=== PATIENT | female | born 1950 | race Caucasian/White ===

== ENCOUNTER 2019-07-02 20:03 | Inpatient (IN) | payer MEDICARE, MEDICAID, SELFPAY ==
[2019-07-02] VITALS (7 sets, daily range): BP systolic 131–170; BP diastolic 65–113; PULSE 80–87; RESP 18–20; TEMP 36.7–38.3; O2SAT 94–100; BMI 38.1
--- NOTE | ~2019-07-02 | XR_ITS ---
EXAMINATION: XR abdomen obstructive series DATE: 07/06/2019 09:17 INDICATION: Abdominal pain. TECHNIQUE: Upright and supine views of the abdomen were obtained. COMPARISON: CT abdomen and pelvis 05/17/2016 FINDINGS: The rectum is distended by stool. There is a paucity of stool in the rest of the colon. The re are no dilated loops of small bowel. Surgical clips in the right upper quadrant are likely from ch olecystectomy. No free intraperitoneal gas. IMPRESSION: 1. Rectum distended by stool. Reviewed, dictated and finalized at location A.
--- NOTE | ~2019-07-02 | XR_ITS ---
EXAMINATION: XR chest 1V portable EXAM DATE: 07/02/2019 20:31 INDICATION: Shortness of breath. TECHNIQUE: Portable AP frontal chest x-ray was obtained. Comparison is made to prior examination from 03/10/19. FINDINGS: The lungs are clear. There are no pleural effusions. Cardiac silhouette is prominent but magnified on this AP technique. There is no pneumothorax suspected. There are bony degenerative ch anges. There are cholecystectomy clips. IMPRESSION: No acute cardiopulmonary findings. Reviewed, dictated and finalized at location A.
--- NOTE | 2019-07-02 20:14 | ECG_ITS ---
Measurements Intervals [place] Rate: 88 P: PA: 0 QRS: -28 QRSD: 89 T: 3 QT: 369 QTc: 447 Interpretive Statements SINUS RHYTHM BORDERLINE R WAVE PROGRESSION, ANTERIOR LEADS INFERIOR INFARCT, AGE INDETERMINATE BORDERLINE T WAVE ABNORMALITY- ANTERIOR LEADS BASELINE ARTIFACT- I, II, III, AVR, AVL, AVF, V1-V2, V4 ABNORMAL ECG Electronically Signed On 07-03-2019 7:05:19 CDT by Juwan Marie D.O.
--- NOTE | 2019-07-02 20:19 | ED.SOB ---
HPI - SOB/Dyspnea General Chief Complaint: Shortness of Breath/Dyspnea Stated Complaint: sob History of Present Illness HPI Narrative: BIBEMS from [facility] for SOB. The initial transfer call said that she has known positive test for COVID-19. In discussing this with the family they state that they were told that she was negative. The alf was not able to provide any documentation confirm her status. Per EMS she was hypoxic in route and they were assisting her with BVM. On arrival she was placed on NRB at 15 and maintaining O2 saturation. She has reportedly not had anything to eat in 3 days. She was febrile in triage. She is not able to provide any additional history. She has an advanced directive showing DNR and comfort measures only. Related Data Home Medications Medication Instructions Recorded Confirmed Vraylar 1.5 mg PO DAILY 03/10/19 07/02/19 acetaminophen 650 mg PO Q6-8H PRN 03/10/19 07/02/19 amlodipine 5 mg PO DAILY 03/10/19 07/02/19 benzonatate 100 - 200 mg PO TID PRN 03/10/19 07/02/19 bisacodyl 10 mg [place] DAILY PRN 03/10/19 07/02/19 carbidopa-levodopa 2 tablet PO QID 03/10/19 07/02/19 docusate sodium [Colace] 100 mg PO BID 03/10/19 07/02/19 duloxetine 60 mg PO DAILY 03/10/19 07/02/19 gabapentin 100 mg PO TID 03/10/19 07/02/19 hydroxyzine HCl 25 mg PO DAILY 03/10/19 07/02/19 lactulose 20 g PO DAILY PRN 03/10/19 07/02/19 lamotrigine 100 mg PO BID 03/10/19 07/02/19 levothyroxine 75 mcg PO DAILY 03/10/19 07/02/19 melatonin 10 mg PO HS 03/10/19 07/02/19 nystatin [Nyamyc] 1 applic TOPICAL Q8-12H PRN 03/10/19 07/02/19 ondansetron HCl [Zofran] 4 mg PO Q8H PRN 03/10/19 07/02/19 polysaccharide iron complex 150 mg PO BID 03/10/19 07/02/19 [Poly-Iron] potassium chloride 20 meq PO DAILY 03/10/19 07/02/19 quetiapine 400 mg PO DAILY 03/10/19 07/02/19 rivastigmine tartrate 3 mg PO BID 03/10/19 07/02/19 sennosides-docusate sodium 2 tab-cap PO HS 03/10/19 07/02/19 sodium chloride [Saline Nasal] 2 spray INTRANASAL QID PRN 03/10/19 07/02/19 tizanidine [Zanaflex] 2 mg PO Q8H PRN 03/10/19 07/02/19 Allergies Allergy/AdvReac Type Severity Reaction Status Date / Time morphine Allergy Intermediate HALLUCINATI Verified 07/02/19 22:38 ONS Penicillins Allergy Unknown Unknown Verified 07/02/19 22:38 oxycodone [From Percocet] Allergy Unknown Verified 07/02/19 22:38 Review of Systems Review of Systems: ROS unobtainable: Yes unobtainable due to medical condition PMFSH Past Medical History Medical History (Updated 07/03/19 @ 01:07 by Winston Aguilera MD) Anxiety Bipolar disorder Chronic constipation CVA (cerebral vascular accident) Right occipital loaded infarct Dementia Depression, psychotic Diabetes Essential hypertension Hypothyroid Parkinsons With pseudobulbar affect Pseudobulbar affect Schizophrenia Sepsis UTI (urinary tract infection) Surgical History Surgical History History of bowel resection 5-6 inch of the bowel resected in 2001 which included appendix History of carpal tunnel release Left History of salpingo-oophorectomy History of total bilateral knee replacement Hx of cholecystectomy Family History Family History Mother Diabetes mellitus Breast cancer Father Lung cancer Social History Social History Social History: Patient is a long-term resident at [facility]. Her alcohol and tobacco use history is unknown. She is completely dependent for all activities of daily living. Code status: DNR Primary care physician: Dr. Concepción Hinton Smoking status: Unknown if ever smoked Alcohol intake: unknown Substance use: unknown Gender identity (if verbalized by the patient): Female Spiritual care concerns: No Agree to blood products: Yes Exam Const:
[2019-07-02] MEDS: SODIUM CHLORIDE 0.9% IV 1,000 ML 999 ML IV CONT (20:45)
--- NOTE | 2019-07-02 20:52 | PC.NURSE ---
this rn attempted to get blood from pt, no success. omer rn attemptng at this time.
[2019-07-02 21:15] LABS: Basophils Percent Auto 0.4 % (0.2-1.2); Eosinophils Absolute Auto 0.3 K/mm3 (0-0.3); Eosinophils Percent Auto 2.6 % (0-4.4); Hematocrit 44.5 % (37.0-47.0); Hemoglobin 14.3 g/dL (12.0-15.0); Immature Granulocyte Absolute 0.03 K/mm3 (0.00-0.031); Immature Granulocyte Percent A 0.3 % (0-0.5); Lymphocytes Absolute Auto 2.21 K/mm3 (0.9-3.2); Lymphocytes Percent Auto 22.6 % (18.3-44.2); Mean Corpuscular HGB Conc 32.1 g/dl (32-36); Mean Corpuscular Hemoglobin 29.1 pg (26-34); Mean Corpuscular Volume 90.6 fl (80-100); Mean Platelet Volume 9.9 fl (7.4-10.4); Monocytes Absolute Auto 0.8 K/mm3 (0.1-0.6); Monocytes Percent Auto 8.4 % (2.6-8.5); Neutrophils Absolute Auto 6.4 K/mm3 (1.3-6.7); Neutrophils Percent Auto 65.7 % (45.5-73.1); Platelet Count Result 273 k/mm3 (150-375); Red Blood Count 4.91 M/mm3 (4.2-5.4); Red Cell Distribution Width 13.8 % (11.5-14.5); White Blood Count 9.8 K/mm3 (4.5-10.0)
[2019-07-02 21:34] LABS: Albumin Level 3.9 g/dL (3.5-5.1); Alkaline Phosphatase 90 U/L (38-126); Aspartate Amino Transferase 35 U/L (14-36); Bilirubin,Total 0.8 mg/dL (0.2-1.3); Blood Urea Nitrogen 33 mg/dL (7-17); CRP 2.6 mg/dL (<1.0); Calcium 9.7 mg/dL (8.4-10.2); Carbon Dioxide 34 mmol/L (22-30); Chloride 99 mmol/L (98-107); Creatine Kinase 435 U/L (30-135); Estimated Glomerular Filt Rate 49; Glucose 105 mg/dL (65-105); Lactate Dehydrogenase 360 U/L (313-618); Potassium 3.7 mmol/L (3.4-5.0); Sodium 139 mmol/L (137-145)
[2019-07-02 21:40] LABS: Troponin I < 0.012 ng/mL (0.000-0.034)
[2019-07-02 21:49] LABS: Alanine Aminotransferase < 6 U/L (4-35)
[2019-07-02 21:57] LABS: Appearance Urine Turbid (Clear); Blood Urine 3+ (Negative); Color Urine Amber (Yellow); Glucose Urine UA Negative (Negative); Ketones Urine 2+ mg/dL (Negative); Nitrate Urine Positive (Negative); Protein Urine 3+ mg/dL (Negative); Specific Grav Ur 1.023 (1.001-1.035); pH Urine 8.5 (5.0-9.0)
[2019-07-02 21:58] LABS: Add Urine Microscopic? YES; Bilirubin Urine Negative (Negative); Leukocyte Esterase Ur 2+ LEU/UL (Negative); Urobilinogen Urine 0.2 mg/dL (<2.0)
[2019-07-02 22:02] LABS: Prothrombin Time 12.4 Seconds (11.1-14.7)
[2019-07-02 22:02] LABS: RBC Urine >75 /hpf (0-2); Squamous Epithelial Cell Urine Few /hpf (Few); WBC Urine >75 /hpf (0-3)
[2019-07-02 22:03] LABS: Amorphous Sediment Urine Few; Bacteria Urine 2+ /hpf; Triple Phosphate Crystal Urine Many /hpf
[2019-07-02 22:03] LABS: Partial Thromboplastin Time 28.3 SECONDS (22.3-36.8)
[2019-07-02 22:04] LABS: Mucus Urine Moderate /lpf
[2019-07-02 22:05] LABS: D Dimer 0.32 ug/mL (<0.48)
--- NOTE | 2019-07-02 22:17 | PC.NURSE ---
mandeep, pts son called for update. this rn informed pt that we would call with any future updates. [phone]
[2019-07-02] MEDS: LACTATED RINGERS 1,000 ML 125 ML IV CONT (23:28)
[2019-07-03] VITALS (12 sets, daily range): BP systolic 101–155; BP diastolic 60–92; PULSE 77–90; RESP 14–22; TEMP 36.4–37.2; O2SAT 94–98
--- NOTE | 2019-07-03 00:06 | PM.IMHP ---
H&P: HPI History of Present Illness Chief complaint: Shortness of breath+ Narrative: This is a severely demented diabetic 69 year old female with known Parkinson's disease, schizophrenia and previous CVA who apparently had tested positive for Coronavirus and residing at [facility] who was sent to the hospital tonight secondary to hypoxia. EMS apparently was bagging the patient on arrival to the ER. She was initially placed on a nonrebreather at 15L/min but taken off the nonrebreather while in the ER. skilled nursing staff had reported that the patient had not eaten any food for the past 3 days. The patient was found to be febrile in the ER and her urinalysis was grossly abnormal. No further history is obtainable from the patient secondary to her severe dementia. On my encounter with the patient she is saturating >95% on room air and does not appear to have any respiratory difficulty whatsoever. Review of Systems Review of Systems: ROS unobtainable: Yes unobtainable due to mental status PMFSH Past Medical History Medical History Anxiety Bipolar disorder Chronic constipation CVA (cerebral vascular accident) Right occipital loaded infarct Dementia Depression, psychotic Diabetes Essential hypertension Hypothyroid Parkinsons With pseudobulbar affect Pseudobulbar affect Schizophrenia Sepsis UTI (urinary tract infection) Surgical History Surgical History History of bowel resection 5-6 inch of the bowel resected in 2001 which included appendix History of carpal tunnel release Left History of salpingo-oophorectomy History of total bilateral knee replacement Hx of cholecystectomy Family History Family History Mother Diabetes mellitus Breast cancer Father Lung cancer Social History Social History Social History: Patient is a long-term resident at [facility]. Her alcohol and tobacco use history is unknown. She is completely dependent for all activities of daily living. Code status: DNR Primary care physician: Dr. Concepción Hinton Smoking status: Unknown if ever smoked Alcohol intake: unknown Substance use: unknown Gender identity (if verbalized by the patient): Female Spiritual care concerns: No Agree to blood products: Yes Meds Home Medications and Allergies Home Medications Medication Instructions Recorded Confirmed Type Vraylar 1.5 mg PO DAILY 03/10/19 07/02/19 History acetaminophen 650 mg PO Q6-8H PRN 03/10/19 07/02/19 History amlodipine 5 mg PO DAILY 03/10/19 07/02/19 History benzonatate 100 - 200 mg PO TID PRN 03/10/19 07/02/19 History bisacodyl 10 mg [place] DAILY PRN 03/10/19 07/02/19 History carbidopa-levodopa 2 tablet PO QID 03/10/19 07/02/19 History docusate sodium [Colace] 100 mg PO BID 03/10/19 07/02/19 History duloxetine 60 mg PO DAILY 03/10/19 07/02/19 History gabapentin 100 mg PO TID 03/10/19 07/02/19 History hydroxyzine HCl 25 mg PO DAILY 03/10/19 07/02/19 History lactulose 20 g PO DAILY PRN 03/10/19 07/02/19 History lamotrigine 100 mg PO BID 03/10/19 07/02/19 History levothyroxine 75 mcg PO DAILY 03/10/19 07/02/19 History melatonin 10 mg PO HS 03/10/19 07/02/19 History nystatin [Nyamyc] 1 applic TOPICAL Q8-12H PRN 03/10/19 07/02/19 History ondansetron HCl [Zofran] 4 mg PO Q8H PRN 03/10/19 07/02/19 History polysaccharide iron complex 150 mg PO BID 03/10/19 07/02/19 History [Poly-Iron] potassium chloride 20 meq PO DAILY 03/10/19 07/02/19 History quetiapine 400 mg PO DAILY 03/10/19 07/02/19 History rivastigmine tartrate 3 mg PO BID 03/10/19 07/02/19 History sennosides-docusate sodium 2 tab-cap PO HS 03/10/19 07/02/19 History sodium chloride [Saline Nasal] 2 spray INTRANASAL QID PRN 03/10/19 07/02/19 H
[2019-07-03] MEDS: RIVASTIGMINE TARTRATE 1.5 MG CAPSULE 3 MG PO ×3 (02:26→17:16)
[2019-07-03] MEDS: lamoTRIgine 100 MG TABLET PO ×3 (02:26→17:16)
[2019-07-03] MEDS: GABAPENTIN 100 MG CAPSULE PO ×4 (02:26→17:15)
[2019-07-03] MEDS: SENNA/DOCUSATE SODIUM TABLET 2 TAB PO ×2 (02:26→22:48)
[2019-07-03] MEDS: CARBIDOPA/LEVODOPA 25/100 MG TABLET 2 TABLET PO ×5 (02:27→22:48)
[2019-07-03] MEDS: LEVOTHYROXINE SODIUM 75 MCG TABLET PO (05:44)
[2019-07-03 05:58] LABS: Basophils Absolute Auto 0.1 K/mm3 (0.0-0.1); Basophils Percent Auto 0.5 % (0.2-1.2); Eosinophils Absolute Auto 0.2 K/mm3 (0-0.3); Eosinophils Percent Auto 2.3 % (0-4.4); Hematocrit 42.7 % (37.0-47.0); Hemoglobin 13.8 g/dL (12.0-15.0); Immature Granulocyte Absolute 0.03 K/mm3 (0.00-0.031); Immature Granulocyte Percent A 0.3 % (0-0.5); Lymphocytes Absolute Auto 2.75 K/mm3 (0.9-3.2); Lymphocytes Percent Auto 27.5 % (18.3-44.2); Mean Corpuscular HGB Conc 32.3 g/dl (32-36); Mean Corpuscular Hemoglobin 28.8 pg (26-34); Mean Corpuscular Volume 89.1 fl (80-100); Mean Platelet Volume 9.3 fl (7.4-10.4); Monocytes Absolute Auto 0.8 K/mm3 (0.1-0.6); Neutrophils Absolute Auto 6.1 K/mm3 (1.3-6.7); Neutrophils Percent Auto 61.4 % (45.5-73.1); Platelet Count Result 290 k/mm3 (150-375); Red Blood Count 4.79 M/mm3 (4.2-5.4); Red Cell Distribution Width 13.6 % (11.5-14.5)
[2019-07-03 06:03] LABS: Blood Urea Nitrogen 29 mg/dL (7-17); Calcium 8.9 mg/dL (8.4-10.2); Carbon Dioxide 26 mmol/L (22-30); Chloride 104 mmol/L (98-107); Estimated CRCL calculation 74 ml/min; Estimated Glomerular Filt Rate > 60; Glucose 96 mg/dL (65-105); Potassium 3.6 mmol/L (3.4-5.0); Sodium 138 mmol/L (137-145)
[2019-07-03] MEDS: TOLNAFTATE 1% POWDER 45 GM BTL 1 APPLIC TOPICAL (08:59)
[2019-07-03] MEDS: AMLODIPINE BESYLATE 5 MG TABLET PO (08:59)
[2019-07-03] MEDS: QUEtiapine FUMARATE 100 MG TABLET 400 MG PO (09:00)
[2019-07-03] MEDS: DOCUSATE SODIUM 100 MG CAPSULE PO ×2 (09:01→17:15)
[2019-07-03] MEDS: LACTATED RINGERS 1,000 ML 75 ML IV CONT (09:04)
[2019-07-03 10:13] LABS: Glucose Point of Care 104 (65-105)
[2019-07-03 13:23] LABS: SARS-CoV-2 RNA PCR Negative
--- NOTE | 2019-07-03 13:54 | PM.IMPN ---
Progress Note: A&P Assessment and Plan (1) Abnormal urinalysis: Code(s): R82.90 - Unspecified abnormal findings in urine Status: Acute Assessment and Plan: UA is suspicious for UTI. The pt is symptomatic and reports increased urinary frequency. Urine cultures and blood cultures are pending. She has hx of UTI with urine culture from 03/09/19 with klebsiella pneumoniae susceptible to ceftriaxone. Continue empiric IV ceftriaxone Await urine culture and sensitivities (2) Dehydration: Code(s): E86.0 - Dehydration Status: Resolved Assessment and Plan: The pt was dehydrated at presentation. She received 1 L fluid bolus in the ED and maintenance IV fluids overnight. She is tolerating PO intake well and appears adequately hydrated at this time. Cr decreased from 1.1 to 0.7. Will discontinue IV fluids Continue to monitor vitals and urine output (3) Suspected COVID-19 virus infection: Code(s): R68.89 - Other general symptoms and signs Status: Ruled-out Assessment and Plan: The patient was tested for COVID-19 due to hypoxia. CXR had no evidence of consolidation/infiltrates. She is from a SNF with known cases of COVID-19. Contact precautions were initiated. She had mild elevation in acute phase reactants. COVID-19 testing was completed and I was notified today (07/02) of the negative COVID-19 result. She is maintaining adequate oxygen saturation on room air. She is not tachypneic. She denies dyspnea. She did have a fever with Tmax 100.9 last night. We will discontinue isolation precautions once she has been afebrile for >72 hr. (4) Dementia: Qualifiers: Dementia behavioral disturbance: without behavioral disturbance Dementia type: unspecified type Qualified Code(s): F03.90 - Unspecified dementia without behavioral disturbance Code(s): F03.90 - Unspecified dementia without behavioral disturbance Status: Chronic Assessment and Plan: The pt has a hx of dementia. She is alert today and answering questions appropriately. She is oriented to person which is her baseline. Continue seroquel (5) Diabetes: Qualifiers: Diabetes mellitus complication status: without complication Diabetes mellitus senior living insulin use: without buttermaker use Diabetes mellitus type: type 2 Qualified Code(s): E11.9 - Type 2 diabetes mellitus without complications Code(s): E11.9 - Type 2 diabetes mellitus without complications Status: Chronic Assessment and Plan: Blood sugars reviewed from 07/02 and at target. Continue ACHS Continue low dose SSI Continue hypoglycemic protocol (6) Essential hypertension: Code(s): I10 - Essential (primary) hypertension Status: Chronic Assessment and Plan: BP reviewed from 07/02 and stable today. Continue amlodipine Will continue to monitor (7) Hypothyroid: Qualifiers: Hypothyroidism type: unspecified Qualified Code(s): E03.9 - Hypothyroidism, unspecified Code(s): E03.9 - Hypothyroidism, unspecified Status: Chronic Assessment and Plan: Will check TSH. Continue levothyroxine (8) Parkinsons: Code(s): G20 - Parkinson's disease Status: Chronic Assessment and Plan: Continue carbidopa-levodopa Continue rivastigmine (9) Schizophrenia: Qualifiers: Schizophrenia type: unspecified Qualified Code(s): F20.9 - Schizophrenia, unspecified Code(s): F20.9 - Schizophrenia, unspecified Status: Chronic Assessment and Plan: Continue seroquel Continue vraylar Continue lamotrigine Subjective Date/time seen: 07/03/19 13:54 Interval history: Mrs. Coleman is a 69 y.o. female who is seen in follow-up for UTI and is PUI for COVID-19. She is seen and examined at bedside. She reports urinary frequency. She denies dysuria, hesistancy, and retention
[2019-07-03 14:56] LABS: Glucose Point of Care 108 (65-105)
--- NOTE | 2019-07-03 14:57 | PC.NURSE ---
Patient COVID negative. Continue droplet isolation until patient is afebrile for 72 hours per Elizabeth. Last fever was on 07/02/2019 @ 2011.
[2019-07-03 17:57] LABS: Glucose Point of Care 76 (65-105)
[2019-07-03 22:55] LABS: Glucose Point of Care 97 (65-105)
[2019-07-04 02:00] VITALS: BP 143/97; PULSE 84; RESP 20; TEMP 36.5; O2SAT 96
[2019-07-04] MEDS: LEVOTHYROXINE SODIUM 75 MCG TABLET PO (05:59)
[2019-07-04 06:00] VITALS: BP 153/88; PULSE 87; RESP 18; TEMP 36.4; O2SAT 98
[2019-07-04 06:49] LABS: Basophils Percent Auto 0.3 % (0.2-1.2); Eosinophils Absolute Auto 0.2 K/mm3 (0-0.3); Eosinophils Percent Auto 1.9 % (0-4.4); Hematocrit 43.8 % (37.0-47.0); Hemoglobin 14.1 g/dL (12.0-15.0); Immature Granulocyte Absolute 0.04 K/mm3 (0.00-0.031); Immature Granulocyte Percent A 0.5 % (0-0.5); Lymphocytes Absolute Auto 1.64 K/mm3 (0.9-3.2); Lymphocytes Percent Auto 18.7 % (18.3-44.2); Mean Corpuscular HGB Conc 32.2 g/dl (32-36); Mean Corpuscular Hemoglobin 28.5 pg (26-34); Mean Corpuscular Volume 88.5 fl (80-100); Mean Platelet Volume 9.8 fl (7.4-10.4); Monocytes Absolute Auto 0.5 K/mm3 (0.1-0.6); Monocytes Percent Auto 5.8 % (2.6-8.5); Neutrophils Absolute Auto 6.4 K/mm3 (1.3-6.7); Neutrophils Percent Auto 72.8 % (45.5-73.1); Platelet Count Result 293 k/mm3 (150-375); Red Blood Count 4.95 M/mm3 (4.2-5.4); Red Cell Distribution Width 13.6 % (11.5-14.5); White Blood Count 8.8 K/mm3 (4.5-10.0)
[2019-07-04 07:13] LABS: Alanine Aminotransferase 7 U/L (4-35); Albumin Level 3.6 g/dL (3.5-5.1); Alkaline Phosphatase 93 U/L (38-126); Aspartate Amino Transferase 29 U/L (14-36); Bilirubin,Total 0.7 mg/dL (0.2-1.3); Blood Urea Nitrogen 19 mg/dL (7-17); Calcium 8.8 mg/dL (8.4-10.2); Carbon Dioxide 26 mmol/L (22-30); Chloride 103 mmol/L (98-107); Estimated CRCL calculation 74 ml/min; Estimated Glomerular Filt Rate > 60; Glucose 101 mg/dL (65-105); Magnesium 1.8 mg/dL (1.6-2.3); Potassium 3.6 mmol/L (3.4-5.0); Sodium 137 mmol/L (137-145)
[2019-07-04 08:11] LABS: Thyroid Stimulating Hormone Reflex 0.682 uIU/mL (0.465-4.68)
[2019-07-04] MEDS: CARBIDOPA/LEVODOPA 25/100 MG TABLET 2 TABLET PO ×4 (09:30→22:19)
[2019-07-04] MEDS: AMLODIPINE BESYLATE 5 MG TABLET PO (09:30)
[2019-07-04] MEDS: DOCUSATE SODIUM 100 MG CAPSULE PO ×2 (09:30→16:48)
[2019-07-04] MEDS: lamoTRIgine 100 MG TABLET PO ×2 (09:31→16:49)
[2019-07-04] MEDS: GABAPENTIN 100 MG CAPSULE PO ×3 (09:31→16:48)
[2019-07-04] MEDS: QUEtiapine FUMARATE 100 MG TABLET 400 MG PO (09:31)
[2019-07-04] MEDS: RIVASTIGMINE TARTRATE 1.5 MG CAPSULE 3 MG PO ×2 (09:32→16:49)
[2019-07-04 10:00] VITALS: BP 155/99; PULSE 76; RESP 22; TEMP 36.9; O2SAT 95
[2019-07-04 10:27] LABS: Glucose Point of Care 103 (65-105)
[2019-07-04 14:00] VITALS: BP 141/82; PULSE 83; RESP 22; TEMP 36.9; O2SAT 98
--- NOTE | 2019-07-04 15:07 | P.PNIM_ITS ---
Progress Note: A&P Assessment and Plan (1) Abnormal urinalysis: Code(s): R82.90 - Unspecified abnormal findings in urine Status: Acute Assessment and Plan: UA was consistent with UTI. The patient is symptomatic and reports increased urinary frequency. Urine cultures are positive for Proteus mirabilis which is resistant to multiple antibiotics including ceftriaxone, levaquin, and ciprofloxacin. Blood cultures reviewed 07/03 and reveal no growth to date. * Will discontinue ceftriaxone and begin ertapenem * Await blood cultures (2) Dehydration: Code(s): E86.0 - Dehydration Status: Resolved Assessment and Plan: The pt was dehydrated at presentation. She received 1 L fluid bolus in ED and maintenance fluids which were discontinued yesterday as she was tolerating PO intake well. PO intake today is decreased. * Resume IV fluids * Continue to monitor vitals and urine output closely (3) Diabetes: Qualifiers: Diabetes mellitus complication status: without complication Diabetes mellitus prison insulin use: without prison use Diabetes mellitus type: type 2 Qualified Code(s): E11.9 - Type 2 diabetes mellitus without complications Code(s): E11.9 - Type 2 diabetes mellitus without complications Status: Chronic Assessment and Plan: Blood sugars reviewed from 07/03 and at target. * Continue ACHS * Continue low dose SSI * Continue hypoglycemic protocol (4) Essential hypertension: Code(s): I10 - Essential (primary) hypertension Status: Chronic Assessment and Plan: BP reviewed from 07/02 and above target with systolic 140-150s and diastolic 80- 90s. * Continue amlodipine * Will add hydralazine PRN * Will continue to monitor closely and uptitrate PO antihypertensives as needed (5) Hypothyroid: Qualifiers: Hypothyroidism type: unspecified Qualified Code(s): E03.9 - Hypothyroidism, unspecified Code(s): E03.9 - Hypothyroidism, unspecified Status: Chronic Assessment and Plan: TSH WNL at 0.682. * Continue levothyroxine (6) Parkinsons: Code(s): G20 - Parkinson's disease Status: Chronic Assessment and Plan: Stable. * Continue carbidopa-levodopa * Continue rivastigmine (7) Schizophrenia: Qualifiers: Schizophrenia type: unspecified Qualified Code(s): F20.9 - Schizophrenia, unspecified Code(s): F20.9 - Schizophrenia, unspecified Status: Chronic Assessment and Plan: Stable. * Continue seroquel * Continue vraylar * Continue lamotrigine (8) Bipolar disorder: Code(s): F31.9 - Bipolar disorder, unspecified Status: Chronic Assessment and Plan: Stable. * Continue seroquel (9) Dementia: Qualifiers: Dementia behavioral disturbance: without behavioral disturbance Dementia type: unspecified type Qualified Code(s): F03.90 - Unspecified dementia without behavioral disturbance Code(s): F03.90 - Unspecified dementia without behavioral disturbance Status: Chronic Assessment and Plan: The pt has a hx of dementia. She is alert and oriented to person. * Continue to monitor (10) Metabolic encephalopathy: Code(s): G93.41 - Metabolic encephalopathy Status: Acute Assessment and Plan: The pt is more drowsy today. She has a hx of metabolic encephalopathy
--- NOTE | 2019-07-04 15:07 | PM.IMPN ---
Progress Note: A&P Assessment and Plan (1) Abnormal urinalysis: Code(s): R82.90 - Unspecified abnormal findings in urine Status: Acute Assessment and Plan: UA was consistent with UTI. The patient is symptomatic and reports increased urinary frequency. Urine cultures are positive for Proteus mirabilis which is resistant to multiple antibiotics including ceftriaxone, levaquin, and ciprofloxacin. Blood cultures reviewed 07/03 and reveal no growth to date. Will discontinue ceftriaxone and begin ertapenem Await blood cultures (2) Dehydration: Code(s): E86.0 - Dehydration Status: Resolved Assessment and Plan: The pt was dehydrated at presentation. She received 1 L fluid bolus in ED and maintenance fluids which were discontinued yesterday as she was tolerating PO intake well. PO intake today is decreased. Resume IV fluids Continue to monitor vitals and urine output closely (3) Diabetes: Qualifiers: Diabetes mellitus complication status: without complication Diabetes mellitus buttermaker insulin use: without assisted use Diabetes mellitus type: type 2 Qualified Code(s): E11.9 - Type 2 diabetes mellitus without complications Code(s): E11.9 - Type 2 diabetes mellitus without complications Status: Chronic Assessment and Plan: Blood sugars reviewed from 07/03 and at target. Continue ACHS Continue low dose SSI Continue hypoglycemic protocol (4) Essential hypertension: Code(s): I10 - Essential (primary) hypertension Status: Chronic Assessment and Plan: BP reviewed from 07/02 and above target with systolic 140-150s and diastolic 80-90s. Continue amlodipine Will add hydralazine PRN Will continue to monitor closely and uptitrate PO antihypertensives as needed (5) Hypothyroid: Qualifiers: Hypothyroidism type: unspecified Qualified Code(s): E03.9 - Hypothyroidism, unspecified Code(s): E03.9 - Hypothyroidism, unspecified Status: Chronic Assessment and Plan: TSH WNL at 0.682. Continue levothyroxine (6) Parkinsons: Code(s): G20 - Parkinson's disease Status: Chronic Assessment and Plan: Stable. Continue carbidopa-levodopa Continue rivastigmine (7) Schizophrenia: Qualifiers: Schizophrenia type: unspecified Qualified Code(s): F20.9 - Schizophrenia, unspecified Code(s): F20.9 - Schizophrenia, unspecified Status: Chronic Assessment and Plan: Stable. Continue seroquel Continue vraylar Continue lamotrigine (8) Bipolar disorder: Code(s): F31.9 - Bipolar disorder, unspecified Status: Chronic Assessment and Plan: Stable. Continue seroquel (9) Dementia: Qualifiers: Dementia behavioral disturbance: without behavioral disturbance Dementia type: unspecified type Qualified Code(s): F03.90 - Unspecified dementia without behavioral disturbance Code(s): F03.90 - Unspecified dementia without behavioral disturbance Status: Chronic Assessment and Plan: The pt has a hx of dementia. She is alert and oriented to person. Continue to monitor (10) Metabolic encephalopathy: Code(s): G93.41 - Metabolic encephalopathy Status: Acute Assessment and Plan: The pt is more drowsy today. She has a hx of metabolic encephalopathy with her prior UTIs. She is easily aroused to verbal stimuli, answers questions, and follows commands. I suspect that this will improve with treatment of her UTI. She also has Parkinson's disease and hx of CVA with dementia at baseline so this is likely due to acute infection with UTI superimposed on chronic dementia. Will continue to monitor closely Hold sedating medications for now Subjective Date/time seen: 07/04/19 15:07 Interval history: The patient was seen and examined at bedside. She is drowsy today
[2019-07-04] MEDS: ERTAPENEM 1 GM/NS 50 ML 1 GM/50 ML BAG IVPB (16:50)
[2019-07-04] MEDS: LACTATED RINGERS 1,000 ML 75 ML IV CONT (16:50)
[2019-07-04 17:27] LABS: Glucose Point of Care 70 (65-105)
[2019-07-04 17:43] LABS: Glucose Point of Care 98 (65-105)
[2019-07-04 18:00] VITALS: BP 108/74; PULSE 84; RESP 20; TEMP 37; O2SAT 93
[2019-07-04] MEDS: DEXTROSE 5%/0.9% SOD CHL 1,000 ML 75 ML IV CONT (19:01)
[2019-07-04 22:00] VITALS: BP 130/80; PULSE 88; RESP 20; TEMP 36.8; O2SAT 97
[2019-07-04] MEDS: SENNA/DOCUSATE SODIUM TABLET 2 TAB PO (22:19)
[2019-07-04 22:51] LABS: Glucose Point of Care 118 (65-105)
[2019-07-05] VITALS (7 sets, daily range): BP systolic 118–170; BP diastolic 74–100; PULSE 78–86; RESP 18–33; TEMP 36.4–37; O2SAT 91–100
[2019-07-05 02:04] LABS: Glucose Point of Care 103 (65-105)
[2019-07-05] MEDS: LEVOTHYROXINE SODIUM 75 MCG TABLET PO (05:47)
[2019-07-05 06:35] LABS: Hematocrit 40.8 % (37.0-47.0); Hemoglobin 13.3 g/dL (12.0-15.0); Mean Corpuscular HGB Conc 32.6 g/dl (32-36); Mean Corpuscular Hemoglobin 28.9 pg (26-34); Mean Corpuscular Volume 88.7 fl (80-100); Mean Platelet Volume 9.5 fl (7.4-10.4); Platelet Count Result 310 k/mm3 (150-375); Red Cell Distribution Width 13.8 % (11.5-14.5); White Blood Count 6.1 K/mm3 (4.5-10.0)
[2019-07-05 06:43] LABS: Blood Urea Nitrogen 15 mg/dL (7-17); Calcium 8.5 mg/dL (8.4-10.2); Carbon Dioxide 26 mmol/L (22-30); Chloride 105 mmol/L (98-107); Estimated CRCL calculation 74 ml/min; Estimated Glomerular Filt Rate > 60; Glucose 112 mg/dL (65-105); Potassium 3.4 mmol/L (3.4-5.0); Sodium 138 mmol/L (137-145)
[2019-07-05] MEDS: CARBIDOPA/LEVODOPA 25/100 MG TABLET 2 TABLET PO ×4 (09:00→20:39)
[2019-07-05] MEDS: DEXTROSE 5%/0.9% SOD CHL 1,000 ML 75 ML IV CONT ×2 (09:00→20:39)
[2019-07-05] MEDS: QUEtiapine FUMARATE 100 MG TABLET 400 MG PO (09:01)
[2019-07-05] MEDS: RIVASTIGMINE TARTRATE 1.5 MG CAPSULE 3 MG PO ×2 (09:01→18:23)
[2019-07-05] MEDS: DOCUSATE SODIUM 100 MG CAPSULE PO ×2 (09:03→18:23)
[2019-07-05] MEDS: AMLODIPINE BESYLATE 5 MG TABLET PO (09:03)
[2019-07-05] MEDS: lamoTRIgine 100 MG TABLET PO ×2 (09:03→18:23)
[2019-07-05 09:14] LABS: Glucose Point of Care 107 (65-105)
--- NOTE | 2019-07-05 11:28 | PM.IMPN ---
Progress Note: A&P Assessment and Plan (1) Abnormal urinalysis: Code(s): R82.90 - Unspecified abnormal findings in urine Status: Acute Assessment and Plan: UA was consistent with UTI which was symptomatic as pt c./o increased frequency. Urine cultures are positive for Proteus mirabilis which is resistant to multiple antibiotics including ceftriaxone which she was on initially, levaquin, and ciprofloxacin. Blood cultures were reviewed from 07/04 and reveal no growth to date. She is afebrile. WBC is normal. Continue ertapenem Await blood cultures (2) Dehydration: Code(s): E86.0 - Dehydration Status: Resolved Assessment and Plan: The pt was dehydrated at presentation. She received 1 L fluid bolus in ED and maintenance fluids which were discontinued as she was tolerated PO intake well 07/03. PO intake was decreased with yesterday so IV fluids were resumed. Continue D5W for now Continue to monitor vitals and urine output closely (3) Metabolic encephalopathy: Code(s): G93.41 - Metabolic encephalopathy Status: Acute Assessment and Plan: The pt was drowsy yesterday. Vitals were stable and labs are WNL. She has a hx of metabolic encephalopathy with her prior UTIs. She is more awake and alert today. I suspect that her metabolic encephalopathy will continue to improve with treatment of her UTI. She also has Parkinson's disease and hx of CVA with dementia at baseline so this is likely due to acute infection with UTI superimposed on chronic dementia. Will continue to monitor closely Hold sedating medications for now (4) Diabetes: Qualifiers: Diabetes mellitus complication status: without complication Diabetes mellitus terminologist insulin use: without terminologist use Diabetes mellitus type: type 2 Qualified Code(s): E11.9 - Type 2 diabetes mellitus without complications Code(s): E11.9 - Type 2 diabetes mellitus without complications Status: Chronic Assessment and Plan: Blood sugars reviewed from 07/04 and at target. D5W was initiated due to low blood sugar and decreased PO intake. Continue ACHS Continue low dose SSI Continue hypoglycemic protocol Continue to monitor (5) Essential hypertension: Code(s): I10 - Essential (primary) hypertension Status: Chronic Assessment and Plan: BP reviewed with elevated BP this AM although the pt is asymptomatic. BP was 134/90 at 6:00. Continue amlodipine Hydralazine PRN SBP >180 Will continue to monitor closely and uptitrate PO antihypertensives as needed (6) Hypothyroid: Qualifiers: Hypothyroidism type: unspecified Qualified Code(s): E03.9 - Hypothyroidism, unspecified Code(s): E03.9 - Hypothyroidism, unspecified Status: Chronic Assessment and Plan: TSH WNL at 0.682. Continue levothyroxine (7) Parkinsons: Code(s): G20 - Parkinson's disease Status: Chronic Assessment and Plan: Stable. Continue carbidopa-levodopa Continue rivastigmine (8) Schizophrenia: Qualifiers: Schizophrenia type: unspecified Qualified Code(s): F20.9 - Schizophrenia, unspecified Code(s): F20.9 - Schizophrenia, unspecified Status: Chronic Assessment and Plan: Stable. Continue seroquel Vraylar is non-formulary and could not be obtained from the assisted. I have asked the patient's son and POA to bring this if possible. Continue lamotrigine (9) Bipolar disorder: Code(s): F31.9 - Bipolar disorder, unspecified Status: Chronic Assessment and Plan: Stable. Continue seroquel (10) Dementia: Qualifiers: Dementia behavioral disturbance: without behavioral disturbance Dementia type: unspecified type Qualified Code(s): F03.90 - Unspecified dementia without behavioral disturbance Code(s): F03.90 - Unspecified dementia wit
[2019-07-05 12:43] LABS: Procalcitonin <0.10 ng/mL (<0.10)
[2019-07-05] MEDS: ERTAPENEM 1 GM/NS 50 ML 1 GM/50 ML BAG IVPB (14:47)
[2019-07-05 15:07] LABS: Glucose Point of Care 112 (65-105)
--- NOTE | 2019-07-05 18:42 | PHAR ---
HOME MED VERIFIED = VRAYLAR 1.5 MG
[2019-07-05] MEDS: SENNA/DOCUSATE SODIUM TABLET 2 TAB PO (20:39)
[2019-07-06] VITALS (7 sets, daily range): BP systolic 101–151; BP diastolic 65–87; PULSE 79–91; RESP 18–32; TEMP 36.3–36.8; O2SAT 92–99
[2019-07-06] MEDS: LEVOTHYROXINE SODIUM 75 MCG TABLET PO (05:50)
[2019-07-06 06:08] LABS: Hematocrit 41.5 % (37.0-47.0); Hemoglobin 13.3 g/dL (12.0-15.0); Mean Corpuscular Hemoglobin 28.9 pg (26-34); Mean Corpuscular Volume 90.2 fl (80-100); Mean Platelet Volume 9.7 fl (7.4-10.4); Platelet Count Result 312 k/mm3 (150-375); Red Cell Distribution Width 13.9 % (11.5-14.5); White Blood Count 4.5 K/mm3 (4.5-10.0)
[2019-07-06 06:28] LABS: Alanine Aminotransferase 6 U/L (4-35); Albumin Level 3.2 g/dL (3.5-5.1); Alkaline Phosphatase 77 U/L (38-126); Aspartate Amino Transferase 18 U/L (14-36); Bilirubin,Total 0.4 mg/dL (0.2-1.3); Blood Urea Nitrogen 10 mg/dL (7-17); Calcium 8.6 mg/dL (8.4-10.2); Carbon Dioxide 26 mmol/L (22-30); Chloride 108 mmol/L (98-107); Estimated CRCL calculation 85 ml/min; Estimated Glomerular Filt Rate > 60; Glucose 112 mg/dL (65-105); Magnesium 1.9 mg/dL (1.6-2.3); Potassium 3.4 mmol/L (3.4-5.0); Sodium 138 mmol/L (137-145)
[2019-07-06 07:53] LABS: Glucose Point of Care 114 (65-105)
[2019-07-06 08:16] LABS: Glucose Point of Care 114 (65-105)
[2019-07-06 08:16] LABS: Glucose Point of Care 88 (65-105)
--- NOTE | 2019-07-06 08:55 | PM.IMPN ---
Progress Note: A&P Assessment and Plan (1) Abnormal urinalysis: Code(s): R82.90 - Unspecified abnormal findings in urine Status: Acute Assessment and Plan: UA was consistent with UTI. Urine cultures are positive for Proteus mirabilis which is resistant to multiple antibiotics including ceftriaxone which she was on initially, levaquin, and ciprofloxacin. Cefriaxone was discontinued and ertapenem was initiated 07/03. Blood cultures were reviewed from 07/05 and reveal no growth to date. She is afebrile. WBC is normal. Continue ertapenem Await blood cultures (2) Dehydration: Code(s): E86.0 - Dehydration Status: Resolved Assessment and Plan: The pt was dehydrated at presentation. She received 1 L fluid bolus in ED and maintenance fluids which were discontinued as she was tolerating PO intake well 07/03. IV fluids were resumed 07/04 as PO intake was decreased. She is currently on gentle IV fluids with D5W as PO intake has been low. Continue D5W for now due to nausea and abdominal discomfort since PO intake is low. Will reassess later today. Blood sugars are acceptable. Continue to monitor vitals and urine output closely (3) Metabolic encephalopathy: Code(s): G93.41 - Metabolic encephalopathy Status: Acute Assessment and Plan: Metabolic encephalopathy is likely due to UTI. She has Parkinson's disease, hx of CVA, and dementia. She has a hx of metabolic encephalopathy with prior UTIs. This appears to be resolving with treatment of UTI as she is much more alert and awake today and engaging in conversation. Will continue to monitor closely (4) Diabetes: Qualifiers: Diabetes mellitus complication status: without complication Diabetes mellitus terminal supervisor insulin use: without terminal supervisor use Diabetes mellitus type: type 2 Qualified Code(s): E11.9 - Type 2 diabetes mellitus without complications Code(s): E11.9 - Type 2 diabetes mellitus without complications Status: Chronic Assessment and Plan: Blood sugars reviewed from 07/05 and at target. Continue ACHS Continue low dose SSI Continue hypoglycemic protocol Continue to monitor (5) Essential hypertension: Code(s): I10 - Essential (primary) hypertension Status: Chronic Assessment and Plan: BP reviewed and acceptable. BP this AM was prior to her amlodipine dose. Continue amlodipine Hydralazine PRN SBP >180 Will continue to monitor closely and uptitrate PO antihypertensives as needed (6) Hypothyroid: Qualifiers: Hypothyroidism type: unspecified Qualified Code(s): E03.9 - Hypothyroidism, unspecified Code(s): E03.9 - Hypothyroidism, unspecified Status: Chronic Assessment and Plan: TSH WNL at 0.682. Continue levothyroxine (7) Parkinsons: Code(s): G20 - Parkinson's disease Status: Chronic Assessment and Plan: Stable. Continue carbidopa-levodopa Continue rivastigmine (8) Schizophrenia: Qualifiers: Schizophrenia type: unspecified Qualified Code(s): F20.9 - Schizophrenia, unspecified Code(s): F20.9 - Schizophrenia, unspecified Status: Chronic Assessment and Plan: Stable. Continue seroquel Vraylar is non-formulary and could not be obtained from the [facility]. I have asked the patient's son and POA to bring this if possible. Continue lamotrigine (9) Bipolar disorder: Code(s): F31.9 - Bipolar disorder, unspecified Status: Chronic Assessment and Plan: Stable. Continue seroquel (10) Dementia: Qualifiers: Dementia behavioral disturbance: without behavioral disturbance Dementia type: unspecified type Qualified Code(s): F03.90 - Unspecified dementia without behavioral disturbance Code(s): F03.90 - Unspecified dementia without behavioral disturbance Status: Chronic Asses
[2019-07-06] MEDS: QUEtiapine FUMARATE 100 MG TABLET 400 MG PO (09:19)
[2019-07-06] MEDS: RIVASTIGMINE TARTRATE 1.5 MG CAPSULE 3 MG PO ×2 (09:19→16:58)
[2019-07-06] MEDS: DULOXETINE 60 MG CAPSULE.DR PO (09:19)
[2019-07-06] MEDS: ONDANSETRON HCL ODT 4 MG TABLET PO (09:19)
[2019-07-06] MEDS: LACTULOSE 20 GM/30 ML UDC PO (09:19)
[2019-07-06] MEDS: CARBIDOPA/LEVODOPA 25/100 MG TABLET 2 TABLET PO ×4 (09:19→21:41)
[2019-07-06] MEDS: lamoTRIgine 100 MG TABLET PO ×2 (09:20→16:58)
[2019-07-06] MEDS: AMLODIPINE BESYLATE 5 MG TABLET PO (09:20)
[2019-07-06] MEDS: DOCUSATE SODIUM 100 MG CAPSULE PO ×2 (09:20→17:01)
[2019-07-06] MEDS: POTASSIUM CHLORIDE 10 MEQ TABLET.ER 20 MEQ PO (09:36)
--- NOTE | 2019-07-06 11:13 | P.CDI_ITS ---
CDI Query Clarification Request -UTI has been documented -ER nurse documented that pt had an indwelling Rubio catheter present on arrival Please clarify if UTI is: * Due to/ associated with indwelling rubio catheter * Not due to /associated with indwelling rubio catheter * Unable to determine
--- NOTE | 2019-07-06 11:13 | WPDCDIQUERY2 ---
CDI Query Clarification Request -UTI has been documented -ER nurse documented that pt had an indwelling Rubio catheter present on arrival Please clarify if UTI is: Due to/ associated with indwelling rubio catheter Not due to /associated with indwelling rubio catheter Unable to determine
[2019-07-06 13:02] LABS: Glucose Point of Care 111 (65-105)
[2019-07-06] MEDS: LORAZEPAM 1 MG TABLET PO ×2 (13:08→16:58)
[2019-07-06] MEDS: ERTAPENEM 1 GM/NS 50 ML 1 GM/50 ML BAG IVPB (13:10)
[2019-07-06 18:09] LABS: Glucose Point of Care 90 (65-105)
[2019-07-06] MEDS: BISACODYL 10 MG SUPPOSITORY RECTAL (18:59)
[2019-07-06] MEDS: DEXTROSE 5%/0.9% SOD CHL 1,000 ML 75 ML IV CONT (19:00)
[2019-07-06] MEDS: SENNA/DOCUSATE SODIUM TABLET 2 TAB PO (21:41)
[2019-07-06] MEDS: TOLNAFTATE 1% POWDER 45 GM BTL 1 APPLIC TOPICAL (21:46)
[2019-07-06 21:54] LABS: Glucose Point of Care 101 (65-105)
[2019-07-07 02:00] VITALS: BP 153/89; PULSE 86; RESP 20; TEMP 36.6; O2SAT 95
[2019-07-07 05:59] LABS: Hematocrit 41.1 % (37.0-47.0); Hemoglobin 12.9 g/dL (12.0-15.0); Mean Corpuscular HGB Conc 31.4 g/dl (32-36); Mean Corpuscular Hemoglobin 28.9 pg (26-34); Mean Corpuscular Volume 92.2 fl (80-100); Mean Platelet Volume 9.4 fl (7.4-10.4); Platelet Count Result 322 k/mm3 (150-375); Red Blood Count 4.46 M/mm3 (4.2-5.4); Red Cell Distribution Width 14.2 % (11.5-14.5); White Blood Count 6.3 K/mm3 (4.5-10.0)
[2019-07-07 06:00] VITALS: BP 140/84; PULSE 88; RESP 20; TEMP 36.8; O2SAT 94
[2019-07-07 06:20] LABS: Alanine Aminotransferase 7 U/L (4-35); Albumin Level 3.2 g/dL (3.5-5.1); Alkaline Phosphatase 74 U/L (38-126); Aspartate Amino Transferase 17 U/L (14-36); Bilirubin,Total 0.4 mg/dL (0.2-1.3); Blood Urea Nitrogen 7 mg/dL (7-17); Calcium 8.2 mg/dL (8.4-10.2); Carbon Dioxide 26 mmol/L (22-30); Chloride 110 mmol/L (98-107); Estimated CRCL calculation 74 ml/min; Estimated Glomerular Filt Rate > 60; Glucose 90 mg/dL (65-105); Potassium 3.9 mmol/L (3.4-5.0); Sodium 141 mmol/L (137-145)
[2019-07-07] MEDS: LEVOTHYROXINE SODIUM 75 MCG TABLET PO (06:33)
[2019-07-07 09:05] LABS: Glucose Point of Care 133 (65-105)
[2019-07-07] MEDS: DOCUSATE SODIUM 100 MG CAPSULE PO ×2 (09:18→16:36)
[2019-07-07] MEDS: DEXTROSE 5%/0.9% SOD CHL 1,000 ML 75 ML IV CONT ×2 (09:18→23:20)
[2019-07-07] MEDS: RIVASTIGMINE TARTRATE 1.5 MG CAPSULE 3 MG PO ×2 (09:18→16:36)
[2019-07-07] MEDS: POTASSIUM CHLORIDE 10 MEQ TABLET.ER 20 MEQ PO (09:19)
[2019-07-07] MEDS: DULOXETINE 60 MG CAPSULE.DR PO (09:19)
[2019-07-07] MEDS: QUEtiapine FUMARATE 100 MG TABLET 400 MG PO (09:19)
[2019-07-07] MEDS: lamoTRIgine 100 MG TABLET PO ×2 (09:19→16:36)
[2019-07-07] MEDS: CARBIDOPA/LEVODOPA 25/100 MG TABLET 2 TABLET PO ×4 (09:19→20:58)
[2019-07-07] MEDS: AMLODIPINE BESYLATE 5 MG TABLET PO (09:19)
[2019-07-07 10:00] VITALS: BP 114/68; PULSE 87; RESP 16; TEMP 36.5; O2SAT 96
--- NOTE | 2019-07-07 11:27 | PM.IMPN ---
Progress Note: A&P Assessment and Plan (1) Abnormal urinalysis: Code(s): R82.90 - Unspecified abnormal findings in urine Status: Acute Assessment and Plan: Urine cultures are positive for Proteus mirabilis which is resistant to multiple antibiotics including ceftriaxone which she was on initially. Cefriaxone was discontinued and ertapenem was initiated 07/03. Blood cultures were reviewed from 07/05 and reveal no growth to date. She is afebrile. WBC is normal. Continue ertapenem, initiated on 07/03. Plan to discontinue on 07/08/19 to complete a 5 day course of IV antibiotic given lack of oral abx options. Await final blood cultures (2) Dehydration: Code(s): E86.0 - Dehydration Status: Resolved Assessment and Plan: The pt was dehydrated at presentation. She received 1 L fluid bolus in ED and maintenance fluids which were discontinued as she was tolerating PO intake well 07/03. IV fluids were resumed 07/04 as PO intake was decreased. Will continue gentle IV D5W given patients drowsiness and therefore poor oral intake Continue to monitor vitals, electrolytes, and urine output closely (3) Metabolic encephalopathy: Code(s): G93.41 - Metabolic encephalopathy Status: Acute Assessment and Plan: Metabolic encephalopathy is likely due to UTI. She has Parkinson's disease, hx of CVA, and dementia. She has a hx of metabolic encephalopathy with prior UTIs. This appears to be resolving with treatment of UTI as she has been more alert and oriented. Will continue to monitor closely She is more drowsy today compared to review of prior visits. This may be due to addition of prn Ativan. Will decrease frequency to BID and continue to wean as needed. Will continue to monitor mental status (4) Diabetes: Qualifiers: Diabetes mellitus type: type 2 Diabetes mellitus long-term insulin use: without terminal press operator use Diabetes mellitus complication status: without complication Qualified Code(s): E11.9 - Type 2 diabetes mellitus without complications Code(s): E11.9 - Type 2 diabetes mellitus without complications Status: Chronic Assessment and Plan: Blood sugars reviewed today and stable at 90. Blood sugar control reviewed from current hospitalization and is acceptable. Continue accuc-checks ACHS, low dose SSI, and hypoglycemic protocol Continue carb consistent diet Continue to monitor (5) Essential hypertension: Code(s): I10 - Essential (primary) hypertension Status: Chronic Assessment and Plan: BP evaluated today and stable at 140/84 prior to amlodipine and 114/68 one hour after dose. Continue amlodipine Continue Hydralazine PRN SBP >180 Will continue to monitor closely and uptitrate PO antihypertensives as needed (6) Hypothyroid: Qualifiers: Hypothyroidism type: unspecified Qualified Code(s): E03.9 - Hypothyroidism, unspecified Code(s): E03.9 - Hypothyroidism, unspecified Status: Chronic Assessment and Plan: TSH WNL at 0.682. Continue levothyroxine (7) Parkinsons: Code(s): G20 - Parkinson's disease Status: Chronic Assessment and Plan: Stable. Continue carbidopa-levodopa Continue rivastigmine (8) Schizophrenia: Qualifiers: Schizophrenia type: unspecified Qualified Code(s): F20.9 - Schizophrenia, unspecified Code(s): F20.9 - Schizophrenia, unspecified Status: Chronic Assessment and Plan: Stable. Continue seroquel Vraylar is non-formulary and could not be obtained from the assisted. I have asked the patient's son and POA to bring this if possible. Continue lamotrigine (9) Bipolar disorder: Code(s): F31.9 - Bipolar disorder, unspecified Status: Chronic Assessment and Plan: Stable. Continue seroquel (10) Dementia: Qualifiers: Dementia type: unspecified ty
[2019-07-07 12:09] LABS: Glucose Point of Care 102 (65-105)
[2019-07-07] MEDS: ERTAPENEM 1 GM/NS 50 ML 1 GM/50 ML BAG IVPB (13:05)
[2019-07-07 14:00] VITALS: BP 105/54; PULSE 82; RESP 16; TEMP 36.3; O2SAT 94
[2019-07-07 16:54] LABS: Glucose Point of Care 102 (65-105)
[2019-07-07 18:00] VITALS: BP 109/55; PULSE 89; RESP 16; TEMP 36.3; O2SAT 97
[2019-07-07] MEDS: SENNA/DOCUSATE SODIUM TABLET 2 TAB PO (20:59)
[2019-07-07] MEDS: LORAZEPAM 0.5 MG TABLET PO (20:59)
[2019-07-07 21:35] LABS: Glucose Point of Care 104 (65-105)
[2019-07-07 22:00] VITALS: BP 147/88; PULSE 84; RESP 20; TEMP 36.6; O2SAT 96
[2019-07-08 02:00] VITALS: BP 151/79; PULSE 86; RESP 20; TEMP 36.3; O2SAT 98
[2019-07-08] MEDS: LEVOTHYROXINE SODIUM 75 MCG TABLET PO (05:39)
[2019-07-08 06:00] VITALS: BP 147/81; PULSE 85; RESP 20; TEMP 36.3; O2SAT 96
[2019-07-08 06:09] LABS: Hematocrit 38.8 % (37.0-47.0); Hemoglobin 12.3 g/dL (12.0-15.0); Mean Corpuscular HGB Conc 31.7 g/dl (32-36); Mean Corpuscular Volume 91.5 fl (80-100); Mean Platelet Volume 9.8 fl (7.4-10.4); Platelet Count Result 286 k/mm3 (150-375); Red Blood Count 4.24 M/mm3 (4.2-5.4); Red Cell Distribution Width 14.2 % (11.5-14.5); White Blood Count 5.3 K/mm3 (4.5-10.0)
[2019-07-08 06:13] LABS: Blood Urea Nitrogen 6 mg/dL (7-17); Calcium 8.3 mg/dL (8.4-10.2); Carbon Dioxide 23 mmol/L (22-30); Chloride 111 mmol/L (98-107); Estimated CRCL calculation 85 ml/min; Estimated Glomerular Filt Rate > 60; Glucose 98 mg/dL (65-105); Potassium 3.7 mmol/L (3.4-5.0); Sodium 136 mmol/L (137-145)
[2019-07-08 07:52] LABS: Glucose Point of Care 95 (65-105)
[2019-07-08] MEDS: lamoTRIgine 100 MG TABLET PO (08:51)
[2019-07-08] MEDS: DULOXETINE 60 MG CAPSULE.DR PO (08:52)
[2019-07-08] MEDS: AMLODIPINE BESYLATE 5 MG TABLET PO (08:52)
[2019-07-08] MEDS: POTASSIUM CHLORIDE 10 MEQ TABLET.ER 20 MEQ PO (08:52)
[2019-07-08] MEDS: CARBIDOPA/LEVODOPA 25/100 MG TABLET 2 TABLET PO ×2 (08:53→13:33)
[2019-07-08] MEDS: QUEtiapine FUMARATE 100 MG TABLET 400 MG PO (08:53)
[2019-07-08] MEDS: RIVASTIGMINE TARTRATE 1.5 MG CAPSULE 3 MG PO (08:53)
--- NOTE | 2019-07-08 09:38 | PM.DS ---
DS: Diagnosis Admitting Diagnosis Admitting Diagnosis: Urinary tract infection, site not specified Discharge Diagnosis (1) UTI (urinary tract infection): Qualifiers: Encounter type: initial encounter Indwelling urinary catheter type: indwelling urethral catheter Urinary tract infection type: catheter-associated UTI Qualified Code(s): T83.511A - Infection and inflammatory reaction due to indwelling urethral catheter, initial encounter; N39.0 - Urinary tract infection, site not specified Code(s): N39.0 - Urinary tract infection, site not specified Status: Acute Assessment and Plan: Completed 5 days of IV ertapenem (2) Abnormal urinalysis: Code(s): R82.90 - Unspecified abnormal findings in urine Status: Acute (3) Dehydration: Code(s): E86.0 - Dehydration Status: Resolved Assessment and Plan: Rehydrated with IV fluids (4) Metabolic encephalopathy: Code(s): G93.41 - Metabolic encephalopathy Status: Acute Assessment and Plan: Secondary to UTI. (5) Diabetes: Qualifiers: Diabetes mellitus complication status: without complication Diabetes mellitus intermission coordinator insulin use: without fpc use Diabetes mellitus type: type 2 Qualified Code(s): E11.9 - Type 2 diabetes mellitus without complications Code(s): E11.9 - Type 2 diabetes mellitus without complications Status: Chronic (6) Essential hypertension: Code(s): I10 - Essential (primary) hypertension Status: Chronic (7) Hypothyroid: Qualifiers: Hypothyroidism type: unspecified Qualified Code(s): E03.9 - Hypothyroidism, unspecified Code(s): E03.9 - Hypothyroidism, unspecified Status: Chronic (8) Parkinsons: Code(s): G20 - Parkinson's disease Status: Chronic (9) Schizophrenia: Qualifiers: Schizophrenia type: unspecified Qualified Code(s): F20.9 - Schizophrenia, unspecified Code(s): F20.9 - Schizophrenia, unspecified Status: Chronic (10) Bipolar disorder: Code(s): F31.9 - Bipolar disorder, unspecified Status: Chronic (11) Dementia: Qualifiers: Dementia behavioral disturbance: without behavioral disturbance Dementia type: unspecified type Qualified Code(s): F03.90 - Unspecified dementia without behavioral disturbance Code(s): F03.90 - Unspecified dementia without behavioral disturbance Status: Chronic (12) Abdominal pain: Code(s): R10.9 - Unspecified abdominal pain Status: Acute Assessment and Plan: Secondary to constipation. Resolved following bowel movement. DS: Summary Hospital Course Reason for hospitalization: Hypoxia Hospital Course: Date of admission: 07/02/2019 Date of discharge: 07/08/2019 Kala Coleman is a 69 year old female with a PMH significant for dementia, bipolar disorder, parkinson's disease, schizophrenia, DM, and HTN who presented to the emergency department on 07/02/19 from [facility] after she was found to be hypoxic. At presentation, she initially required a bag valve mask and then non-rebreather with O2 sat at 99%, HR 87, T 100.9, RR 18, WBC 9.8, Cr 1.1, BUN 33, lactic acid 1.0, UA with 3+ blood, nitrates, 2+ LE, >75 WBC, and CXR with no acute cardiopulmonary findings. She was admitted the hospitalist service on 07/02/19 for abnormal urinalysis and hypoxic episode. Her hypoxia stabilized and she was 95% on room air at time of admission. She was found to be negative for COVID-19. She was initiated on Ceftriaxone and IV fluids. She was noted to have metabolic encephalopathy secondary to UTI, which improved with treatment of UTI. She was initially very drowsy and disoriented, but this improved and she became more awake and alert and was oriented to self and place, consistent with baseline. Her lorazepam was decreased as it was thought to be contributing to her drowsiness. Urine cult
[2019-07-08 10:00] VITALS: BP 106/80; PULSE 97; RESP 18; TEMP 36.5; O2SAT 97
[2019-07-08] MEDS: DOCUSATE SODIUM 100 MG CAPSULE PO (10:00)
[2019-07-08] MEDS: LORAZEPAM 0.5 MG TABLET PO (10:04)
[2019-07-08] MEDS: ERTAPENEM 1 GM/NS 50 ML 1 GM/50 ML BAG IVPB (11:35)
[2019-07-08 12:19] LABS: Glucose Point of Care 92 (65-105)
== END 2019-07-08 15:16 | DRG 698 ==
LOC: ANHED 22:30 → ANH3MEDSUR 22:32
PROVIDERS: Physician Assistant; Admitting Provider Family Medicine; Emergency Provider Emergency Medicine; PCP Family Medicine; Visit Provider Family Medicine
DX: T83.511A Infection and inflammatory reaction due to indwelling urethral catheter, initial encounter (principal); G93.41 Metabolic encephalopathy; N39.0 Urinary tract infection, site not specified; Z20.828 Contact with and (suspected) exposure to other viral communicable diseases; E11.9 Type 2 diabetes mellitus without complications; G20 Parkinson's disease; F02.80 Dementia in other diseases classified elsewhere, unspecified severity, without behavioral disturbance, psychotic disturbance, mood disturbance, and anxiety; Z86.73 Personal history of transient ischemic attack (TIA), and cerebral infarction without residual deficits; F41.8 Other specified anxiety disorders; E03.9 Hypothyroidism, unspecified; Z90.79 Acquired absence of other genital organ(s); Z90.722 Acquired absence of ovaries, bilateral; Z96.653 Presence of artificial knee joint, bilateral; E86.0 Dehydration; I10 Essential (primary) hypertension; F48.2 Pseudobulbar affect; F20.9 Schizophrenia, unspecified; Z87.440 Personal history of urinary (tract) infections; Z90.49 Acquired absence of other specified parts of digestive tract; R09.02 Hypoxemia; B96.4 Proteus (mirabilis) (morganii) as the cause of diseases classified elsewhere; F31.9 Bipolar disorder, unspecified
CPT/HCPCS: 36415; 71045; 74019; 80048; 80053; 81001; 82550; 83605; 83615; 83735; 84145; 84443; 84484; 85025; 85027; 85380; 85610; 85730; 86140; 87040; 87077; 87086; 87088; 87186; 87635; 93005; 96361; 96365; 96375; 99285; A9270; G0378; J0131; J0696; J1335; J7030; J7042; J7120; U0003

== ENCOUNTER 2019-07-15 23:51 | Emergency (ER) | payer MEDICARE, MEDICAID, SELFPAY ==
--- NOTE | ~2019-07-15 | XR_ITS ---
EXAMINATION: XR femur LT min 2V, XR tibia fibula LT 2V, XR hip BI 2V w AP pelvis DATE: 07/16/2019 01:00 INDICATION: Left leg pain post fall TECHNIQUE: 1. Anteroposterior view of the pelvis and AP and frog-leg lateral views of the left and right hips we re obtained. 2. Anteroposterior and lateral views of the left femur were obtained. 3. Anteroposterior and lateral views of the left tibia and fibula were obtained.. COMPARISON: None. FINDINGS: Left total knee arthroplasty without patellar resurfacing. There is a a transverse metaphyseal fractu re of the distal left femur which is near the femoral component of the arthroplasty potentially exten ding to the component interface anteriorly. There is one shaft width posterior displacement, 5 degree s posterior angulation and 3-3.5 cm proximal migration. There is an irregular proximal margin to the patella and could not exclude a small impaction or avulsion fracture. The tibial component appears we ll seated. No other fractures identified. Mild polyarticular osteoarthritis at the bilateral hips, le ft ankle and left hindfoot. IMPRESSION: 1. Displaced and angulated distal left femoral metaphyseal fracture which may extend to the anterior portion of the femoral component of a left total knee arthroplasty. 2. Possible small impaction versus avulsion fracture at the cephalad margin of the patella. 3. No pelvic fractures. Reviewed, dictated and finalized at location A. IMPRESSION: 1. Displaced and angulated distal left femoral metaphyseal fracture which may e xtend to the anterior portion of the femoral component of a left total knee art hroplasty. 2. Possible small impaction versus avulsion fracture at the cephalad margin of the patella. 3. No pelvic fractures. IMPRESSION: 1. Displaced and angulated distal left femoral metaphyseal fracture which may e xtend to the anterior portion of the femoral component of a left total knee art hroplasty. 2. Possible small impaction versus avulsion fracture at the cephalad margin of the patella. 3. No pelvic fractures.
--- NOTE | ~2019-07-15 | XR_ITS ---
EXAMINATION: XR chest 1V portable DATE: 07/16/2019 00:59 INDICATION: Fall from bed. TECHNIQUE: frontal view of the chest was obtained. COMPARISON: Chest radiograph dated 07/02/19 FINDINGS: Chronic elevation of the right hemidiaphragm. No focal airspace opacities, pulmonary edema, pleural e ffusion or pneumothorax. Heart size is normal. Tortuous thoracic aorta. Cholecystectomy clips in the right upper quadrant. Moderate thoracic spondylosis. IMPRESSION: 1. Elevation of the right hemidiaphragm. No acute cardiopulmonary disease. Reviewed, dictated and finalized at location A.
[2019-07-15 23:49] VITALS: BP 128/66; PULSE 88; RESP 23; TEMP 36.9; O2SAT 95
--- NOTE | 2019-07-16 00:01 | ECG_ITS ---
Measurements Intervals [place] Rate: 88 P: 66 OR: 176 QRS: -26 QRSD: 89 T: 4 QT: 341 QTc: 413 Interpretive Statements SINUS RHYTHM POOR R WAVE PROGRESSION, ANTERIOR LEADS INFERIOR INFARCT, AGE INDETERMINATE BORDERLINE T WAVE ABNORMALITY- ANTERIOR LEADS BASELINE ARTIFACT- I, II, III, AVR, AVL, AVF, V1 ABNORMAL ECG Electronically Signed On 07-16-2019 7:04:07 CDT by Juwan Marie D.O.
[2019-07-16 00:13] LABS: Basophils Percent Auto 0.6 % (0.2-1.2); Eosinophils Absolute Auto 0.2 K/mm3 (0-0.3); Eosinophils Percent Auto 2.4 % (0-4.4); Hematocrit 33.1 % (37.0-47.0); Hemoglobin 10.7 g/dL (12.0-15.0); Immature Granulocyte Absolute 0.04 K/mm3 (0.00-0.031); Immature Granulocyte Percent A 0.6 % (0-0.5); Lymphocytes Absolute Auto 2.78 K/mm3 (0.9-3.2); Lymphocytes Percent Auto 39.4 % (18.3-44.2); Mean Corpuscular HGB Conc 32.3 g/dl (32-36); Mean Corpuscular Hemoglobin 29.4 pg (26-34); Mean Corpuscular Volume 90.9 fl (80-100); Mean Platelet Volume 9.3 fl (7.4-10.4); Monocytes Absolute Auto 0.6 K/mm3 (0.1-0.6); Monocytes Percent Auto 8.7 % (2.6-8.5); Neutrophils Absolute Auto 3.4 K/mm3 (1.3-6.7); Neutrophils Percent Auto 48.3 % (45.5-73.1); Platelet Count Result 357 k/mm3 (150-375); Red Blood Count 3.64 M/mm3 (4.2-5.4); Red Cell Distribution Width 13.9 % (11.5-14.5); White Blood Count 7.1 K/mm3 (4.5-10.0)
[2019-07-16 00:24] LABS: Prothrombin Time 12.5 Seconds (11.1-14.7)
[2019-07-16 00:25] LABS: Partial Thromboplastin Time 32.7 SECONDS (22.3-36.8)
[2019-07-16 00:26] LABS: Alanine Aminotransferase 6 U/L (4-35); Albumin Level 3.5 g/dL (3.5-5.1); Alkaline Phosphatase 92 U/L (38-126); Aspartate Amino Transferase 16 U/L (14-36); Blood Urea Nitrogen 19 mg/dL (7-17); Calcium 8.9 mg/dL (8.4-10.2); Carbon Dioxide 29 mmol/L (22-30); Chloride 100 mmol/L (98-107); Estimated Glomerular Filt Rate > 60; Glucose 95 mg/dL (65-105); Potassium 4.1 mmol/L (3.4-5.0); Sodium 136 mmol/L (137-145)
[2019-07-16 01:08] VITALS: BP 141/88; PULSE 98; RESP 15; O2SAT 96
[2019-07-16 01:45] VITALS: BP 119/75; PULSE 77; RESP 20; O2SAT 100
--- NOTE | 2019-07-16 02:04 | ED.FALL ---
HPI - Fall General Chief Complaint: Fall Stated Complaint: fall, leg fx Time Seen by Provider: 07/15/19 23:59 Source: patient and EMS Mode of arrival: EMS History of Present Illness HPI Narrative: This patient is a 69 yo female with h/o schizophrenia, bipolar, HTN who presents from [facility] for evaluation of left distal femur fracture. [facility] reports that patient fell out of bed 4 days ago. She had xray performed while at long term and patient was found to have distal femur fracture today so she was sent to ER. Patient denies headache or LOC. She does not taken anticoagulation. Patient reports pain to left groin. She denies numbness or tingling. Patient was just discharged from [facility] 1 week ago for treatment of UTI and encephalopathy. Her discharge summary states patient was negative for COVID 19. MD complaint: fall Onset (ago): day(s) (4 days ago) Related Data Home Medications Medication Instructions Recorded Confirmed Vraylar 1.5 mg PO DAILY 03/10/19 07/02/19 acetaminophen 650 mg PO Q6-8H PRN 03/10/19 07/02/19 amlodipine 5 mg PO DAILY 03/10/19 07/02/19 benzonatate 100 - 200 mg PO TID PRN 03/10/19 07/02/19 bisacodyl 10 mg ME DAILY PRN 03/10/19 07/02/19 carbidopa-levodopa 2 tablet PO QID 03/10/19 07/02/19 docusate sodium [Colace] 100 mg PO BID 03/10/19 07/02/19 duloxetine 60 mg PO DAILY 03/10/19 07/02/19 gabapentin 100 mg PO TID 03/10/19 07/02/19 hydroxyzine HCl 25 mg PO DAILY 03/10/19 07/02/19 lactulose 20 g PO DAILY PRN 03/10/19 07/02/19 lamotrigine 100 mg PO BID 03/10/19 07/02/19 levothyroxine 75 mcg PO DAILY 03/10/19 07/02/19 melatonin 10 mg PO HS 03/10/19 07/02/19 nystatin [Nyamyc] 1 applic TOPICAL Q8-12H PRN 03/10/19 07/02/19 ondansetron HCl [Zofran] 4 mg PO Q8H PRN 03/10/19 07/02/19 polysaccharide iron complex 150 mg PO BID 03/10/19 07/02/19 [Poly-Iron] potassium chloride 20 meq PO DAILY 03/10/19 07/02/19 quetiapine 400 mg PO DAILY 03/10/19 07/02/19 rivastigmine tartrate 3 mg PO BID 03/10/19 07/02/19 sennosides-docusate sodium 2 tab-cap PO HS 03/10/19 07/02/19 sodium chloride [Saline Nasal] 2 spray INTRANASAL QID PRN 03/10/19 07/02/19 tizanidine [Zanaflex] 2 mg PO Q8H PRN 03/10/19 07/02/19 Allergies Allergy/AdvReac Type Severity Reaction Status Date / Time morphine Allergy Intermediate HALLUCINATI Verified 07/16/19 03:42 ONS Penicillins Allergy Unknown Unknown Verified 07/16/19 03:42 oxycodone [From Percocet] Allergy Unknown Verified 07/16/19 03:42 Review of Systems Review of Systems: All systems reviewed & are unremarkable except as noted in HPI and below Constitutional: Constitutional: Denies chills, Denies fever(s) and Denies weakness Cardiovascular: Cardiovascular: Denies chest pain Respiratory: Respiratory: Denies cough PMFSH Past Medical History Medical History Anxiety Bipolar disorder Chronic constipation CVA (cerebral vascular accident) Right occipital loaded infarct Dementia Depression, psychotic Diabetes Essential hypertension Hypothyroid Parkinsons With pseudobulbar affect Pseudobulbar affect Schizophrenia Sepsis UTI (urinary tract infection) Surgical History Surgical History History of bowel resection 5-6 inch of the bowel resected in 2001 which included appendix History of carpal tunnel release Left History of salpingo-oophorectomy History of total bilateral knee replacement Hx of cholecystectomy Social History Social History Social History: Patient is a long-term resident at [facility]. Her alcohol and tobacco use history is unknown. She is completely dependent for all activities of daily living. Code status: DNR Primary care physician: Dr. Concepción Hinton Smoking status: Unknown if ever smoked Alcohol intake: unkn
[2019-07-16 03:03] VITALS: BP 129/79; PULSE 87; RESP 15; TEMP 37.1; O2SAT 93
[2019-07-16] MEDS: HYDROMORPHONE HCL 1 MG/ML INJ 0.5 MG IV PUSH (03:34)
[2019-07-16 04:00] VITALS: BP 114/62; PULSE 88; RESP 19; O2SAT 93
== END 2019-07-16 04:06 | disposition short-term general hospital (02) ==
PROVIDERS: Emergency Provider General Practice; PCP Family Medicine
DX: S79.192A Other physeal fracture of lower end of left femur, initial encounter for closed fracture (principal); M97.12XA Periprosthetic fracture around internal prosthetic left knee joint, initial encounter; R94.31 Abnormal electrocardiogram [ECG] [EKG]; Z86.73 Personal history of transient ischemic attack (TIA), and cerebral infarction without residual deficits; F03.90 Unspecified dementia, unspecified severity, without behavioral disturbance, psychotic disturbance, mood disturbance, and anxiety; E11.9 Type 2 diabetes mellitus without complications; I10 Essential (primary) hypertension; F48.2 Pseudobulbar affect; G20 Parkinson's disease; Z87.440 Personal history of urinary (tract) infections; Z90.49 Acquired absence of other specified parts of digestive tract; Z96.653 Presence of artificial knee joint, bilateral; Z66 Do not resuscitate; F41.9 Anxiety disorder, unspecified; F31.9 Bipolar disorder, unspecified; W06.XXXA Fall from bed, initial encounter
CPT/HCPCS: 36415; 71045; 73521; 73552; 73590; 80053; 85025; 85610; 85730; 93005; 96374; 96375; 99285; J1170; J3010

== ENCOUNTER 2019-08-22 08:50 | Inpatient (IN) | payer MEDICARE, MEDICAID, SELFPAY ==
--- NOTE | ~2019-08-22 | CT_ITS ---
EXAMINATION: CT brain wo con INDICATION: Transient alteration of awareness COMPARISON: 04/04/2019 TECHNIQUE: Standard unenhanced head CT. The dose-length product (DLP) was 681.00 mGy-cm. The mA was a djusted according to patient size. Iterative reconstruction technique was employed. FINDINGS: There is no acute intraparenchymal hemorrhage. No evidence of mass lesion. No evidence of a cute infarction. Encephalomalacia in the medial aspect of the right occipital lobe is consistent with prior infarction. There is mild periventricular and subcortical hypodensity probably related to smal l vessel ischemic disease. There is mild prominence of the sulci and ventricles related to cerebral a trophy. Intracranial calcified cerebral atherosclerosis is noted. There are no extra-axial collection s. There is no mass effect or midline shift. The orbits and soft tissues are unremarkable. The visua lized sinuses and mastoid air cells are well aerated. IMPRESSION: 1. Old right occipital lobe infarct without acute intracranial abnormality. 2. Age related findings. Reviewed, dictated and finalized at location A.
--- NOTE | ~2019-08-22 | XR_ITS ---
EXAMINATION: XR chest 1V INDICATION: Altered mental status TECHNIQUE: Portable AP chest at 1042 hours COMPARISON: 07/16/2019 FINDINGS: Again noted is chronic elevation of the right hemidiaphragm. The lungs are free of acute op acities. There is no pleural effusion or pneumothorax. The cardiomediastinal silhouette is normal. Siddiqi rgical clips in the right upper quadrant are likely from prior cholecystectomy. IMPRESSION: 1. No acute cardiopulmonary abnormality. Reviewed, dictated and finalized at location A.
--- NOTE | ~2019-08-22 | CT_ITS ---
EXAMINATION: CTA chest PE protocol DATE: 08/22/2019 11:50 INDICATION: Hypoxia TECHNIQUE: Computed tomography angiography (CTA) of the chest was performed with 100 mL Omnipaque-350 intravenous contrast timed to evaluate the pulmonary arteries. Coronal maximum intensity projection 3D-reconstructions were created by the technologist. The dose-length product (DLP) was 665.10 mGy-cm. Automated exposure control and iterative reconstruction technique were employed. COMPARISON: None. FINDINGS: Respiratory motion artifact limits examination. The pulmonary arteries are well-opacified. No definite pulmonary embolism is identified. No focal airspace opacities are identified. There is no pleural effusion or pneumothorax. No pathologically enlarged thoracic lymph nodes are identified. Th e heart size is normal. A 2.3 cm low-attenuation subcutaneous mass in the left upper back has the santos earance of a sebaceous cyst. The gallbladder is surgically absent. There are stones in the kidneys. T here is mild thoracic spondylosis. IMPRESSION: 1. No pulmonary embolism or acute cardiopulmonary abnormality, sensitivity limited by motion artifact . Reviewed, dictated and finalized at location A. IMPRESSION: 1. No pulmonary embolism or acute cardiopulmonary abnormality, sensitivity limi walt by motion artifact.
[2019-08-22 09:14] VITALS: BP 148/87; PULSE 94; RESP 22; TEMP 36.7; O2SAT 100
--- NOTE | 2019-08-22 09:28 | ECG_ITS ---
Measurements Intervals [place] Rate: 89 P: 72 SC: 163 QRS: -28 QRSD: 94 T: -8 QT: 378 QTc: 461 Interpretive Statements SINUS RHYTHM WITH SINUS ARRHYTHMIA LOW QRS VOLTAGE IN PRECORDIAL LEADS POOR R WAVE PROGRESSION, ANTERIOR LEADS INFERIOR INFARCT, AGE INDETERMINATE BORDERLINE T WAVE ABNORMALITY- ANTERIOR LEADS BASELINE ARTIFACT- I, II, III, AVR, AVL, AVF, V1-V6 ABNORMAL ECG Electronically Signed On 08-22-2019 12:54:22 CDT by Juwan Marie D.O.
[2019-08-22] MEDS: SODIUM CHLORIDE 0.9% IV 1,000 ML 999 ML IV CONT (09:46)
[2019-08-22 09:50] LABS: Basophils Absolute Auto 0.1 K/mm3 (0.0-0.1); Basophils Percent Auto 0.7 % (0.2-1.2); Eosinophils Absolute Auto 0.1 K/mm3 (0-0.3); Eosinophils Percent Auto 1.2 % (0-4.4); Hematocrit 46.3 % (37.0-47.0); Hemoglobin 14.4 g/dL (12.0-15.0); Immature Granulocyte Absolute 0.04 K/mm3 (0.00-0.031); Immature Granulocyte Percent A 0.5 % (0-0.5); Lymphocytes Absolute Auto 2.83 K/mm3 (0.9-3.2); Lymphocytes Percent Auto 34.1 % (18.3-44.2); Mean Corpuscular HGB Conc 31.1 g/dl (32-36); Mean Corpuscular Hemoglobin 28.7 pg (26-34); Mean Corpuscular Volume 92.4 fl (80-100); Monocytes Absolute Auto 0.8 K/mm3 (0.1-0.6); Monocytes Percent Auto 9.6 % (2.6-8.5); Neutrophils Absolute Auto 4.5 K/mm3 (1.3-6.7); Neutrophils Percent Auto 53.9 % (45.5-73.1); Platelet Count Result 546 k/mm3 (150-375); Red Blood Count 5.01 M/mm3 (4.2-5.4); Red Cell Distribution Width 15.4 % (11.5-14.5); White Blood Count 8.3 K/mm3 (4.5-10.0)
[2019-08-22 09:52] LABS: Glucose Point of Care 102 (65-105)
[2019-08-22 09:57] LABS: Alveolar/Arterial O2 Gradient 9.5 mmHg; Fractional Inspired Oxygen 32 %; HCO3 ABG 26.5 mEq/l (22.0-26.0); Oxygen Content ABG 19.7 %vol (16.0-22.0); Oxygen Saturation ABG 99.2 % (95.0-100.0); Oxyhemoglobin 97.9 % THb (90.0-100.0); PO2 ABG 170.7 mmHg (80.0-100.0); PO2 FiO2 Ratio Arterial Blood 5.33 %; Total Hemoglobin 14.1 g/dL (12.0-18.0); pH ABG 7.428 (7.350-7.450)
[2019-08-22 09:58] LABS: Add Urine Microscopic? YES; Appearance Urine Turbid (Clear); Bacteria Urine 1+ /hpf; Bilirubin Urine 1+ (Negative); Blood Urine 2+ (Negative); Color Urine Amber (Yellow); Glucose Urine UA Negative (Negative); Ketones Urine Trace mg/dL (Negative); Leukocyte Esterase Ur 3+ LEU/UL (Negative); Mucus Urine Moderate /lpf; Nitrate Urine Positive (Negative); Protein Urine 2+ mg/dL (Negative); RBC Urine >75 /hpf (0-2); Specific Grav Ur 1.019 (1.001-1.035); Squamous Epithelial Cell Urine Occasional /hpf (Few); Urobilinogen Urine Negative mg/dL (<2.0); WBC Clumps Urine Present /HPF; WBC Urine >75 /hpf
[2019-08-22 09:58] LABS: Device NASAL CANNULA; Site Drawn RIGHT BRACHIAL
[2019-08-22 10:01] LABS: Ammonia < 9 umol/L (9-30)
[2019-08-22 10:02] LABS: Albumin Level 3.5 g/dL (3.5-5.1); Alkaline Phosphatase 145 U/L (38-126); Aspartate Amino Transferase 45 U/L (14-36); Bilirubin,Total 0.6 mg/dL (0.2-1.3); Blood Urea Nitrogen 34 mg/dL (7-17); Calcium 9.1 mg/dL (8.4-10.2); Carbon Dioxide 33 mmol/L (22-30); Chloride 102 mmol/L (98-107); Estimated CRCL calculation 61 ml/min; Estimated Glomerular Filt Rate > 60; Glucose 104 mg/dL (65-105); INR 1.1; Lactic Acid Reflex 1.2 mmol/L (0.7-2.1); Partial Thromboplastin Time 29.6 SECONDS (22.3-36.8); Potassium 4.5 mmol/L (3.4-5.0); Prothrombin Time 14.2 Seconds (11.1-14.7); Sodium 139 mmol/L (137-145)
[2019-08-22 10:09] LABS: D Dimer 2.15 ug/mL (<0.48)
[2019-08-22 10:11] LABS: CRP 1.2 mg/dL (<1.0); Lactate Dehydrogenase 465 U/L (313-618)
[2019-08-22 10:13] LABS: Troponin I 0.014 ng/mL (0.000-0.034)
[2019-08-22 10:14] LABS: Alanine Aminotransferase < 6 U/L (4-35)
[2019-08-22 10:48] VITALS: BP 135/77; PULSE 92; RESP 22; O2SAT 100
[2019-08-22] MEDS: LACTATED RINGERS 1,000 ML 999 ML IV CONT (12:15)
--- NOTE | 2019-08-22 12:31 | ED.AMS ---
HPI - Altered Mental Status General Chief Complaint: Altered Mental Status Stated Complaint: AMS Time Seen by Provider: 08/22/19 08:54 Source: EMS Mode of arrival: EMS Limitations: dementia History of Present Illness HPI narrative: This patient is a 69 year old female with multiple medical problems who presents from group home for evaluation of altered mental status. Nursing staff states patient is normally alert and oriented x 2 but this morning when they went to wake her she appeared lethargic and confused. She was only oriented x 1. Patient denies chest pain, nausea, vomiting, fever, chills or abdominal pain. Patient suffered of left distal femur fracture in the beginning of july and she has been placed in knee immobilizer after her evaluation at [facility]. She denies having any surgery for this fracture. Patient was also found to be positive for COVID August 01. Related Data Home Medications Medication Instructions Recorded Confirmed Vraylar 1.5 mg PO DAILY 03/10/19 08/22/19 acetaminophen 650 mg PO Q4H PRN 03/10/19 08/22/19 amlodipine 5 mg PO DAILY 03/10/19 08/22/19 benzonatate 100 - 200 mg PO TID PRN 03/10/19 08/22/19 bisacodyl 10 mg RI DAILY PRN 03/10/19 08/22/19 carbidopa-levodopa 2 tablet PO Q4H 03/10/19 08/22/19 docusate sodium [Colace] 100 mg PO BID 03/10/19 08/22/19 duloxetine 60 mg PO DAILY 03/10/19 08/22/19 gabapentin 100 mg PO TID 03/10/19 08/22/19 hydroxyzine HCl 25 mg PO DAILY 03/10/19 08/22/19 lactulose 20 g PO DAILY PRN 03/10/19 08/22/19 lamotrigine 100 mg PO BID 03/10/19 08/22/19 levothyroxine 75 mcg PO DAILY 03/10/19 08/22/19 melatonin 10 mg PO HS 03/10/19 08/22/19 nystatin [Nyamyc] 1 applic TOPICAL Q12H PRN 03/10/19 08/22/19 ondansetron HCl [Zofran] 4 mg PO Q6H PRN 03/10/19 08/22/19 polysaccharide iron complex 150 mg PO BID 03/10/19 08/22/19 [Poly-Iron] potassium chloride 20 meq PO DAILY 03/10/19 08/22/19 quetiapine 400 mg PO DAILY 03/10/19 08/22/19 rivastigmine tartrate 3 mg PO BID 03/10/19 08/22/19 sennosides-docusate sodium 2 tab-cap PO BID 03/10/19 08/22/19 sodium chloride [Saline Nasal] 2 spray INTRANASAL QID PRN 03/10/19 08/22/19 apixaban [Eliquis] 2.5 mg PO BID 08/22/19 08/22/19 furosemide [Lasix] 20 mg PO DAILY 08/22/19 08/22/19 lorazepam 1 mg PO BID PRN 08/22/19 08/22/19 spironolactone 25 mg PO DAILY 08/22/19 08/22/19 tramadol 50 mg PO TID PRN 08/22/19 08/22/19 Allergies Allergy/AdvReac Type Severity Reaction Status Date / Time morphine Allergy Intermediate HALLUCINATI Verified 08/22/19 09:23 ONS Penicillins Allergy Unknown Unknown Verified 08/22/19 09:23 oxycodone [From Percocet] Allergy Unknown Verified 08/22/19 09:23 Review of Systems Review of Systems: All systems reviewed & are unremarkable except as noted in HPI and below Constitutional: Constitutional: Denies fever(s) ENT: Denies sore throat Cardiovascular: Cardiovascular: Denies chest pain Respiratory: Respiratory: Denies cough, Denies dyspnea and Denies wheezing Gastrointestinal: Gastrointestinal: Denies abdominal pain, Denies nausea and Denies vomiting Genitourinary: Genitourinary: Denies hematuria Neurologic: Reports weakness (chronic) [facility] Past Medical History Medical History Anxiety Bipolar disorder Cerebrovascular accident Previous right occipital lobe infarct. Chronic constipation Dementia Endometriosis Essential hypertension Hypothyroidism TSH on 08/22/2019 was 1.020. Osteoarthritis Parkinson's disease With pseudobulbar affect. Recurrent urinary tract infection With history of multidrug resistant Proteus mirabilis. Schizophrenia Poorly documented in her medical history. Type 2 diabetes mellitus Poorly documented, and I see that she is on no medication for such. Hemoglobin A1c was 5.1% in September 2017. Surgical History Surgical History History of bowel resection
[2019-08-22] MEDS: ERTAPENEM 1 GM/NS 50 ML 1 GM/50 ML BAG IVPB (13:56)
[2019-08-22 15:30] VITALS: BP 130/85; PULSE 88; RESP 22; TEMP 36.9; O2SAT 98
--- NOTE | 2019-08-22 15:45 | PM.IMHP ---
H&P: HPI History of Present Illness Chief complaint: Altered mental status. Narrative: Kala Coleman is a 61-year-old female with Parkinson's, dementia, hypertension, hypothyroidism, and recurrent urinary tract infections who presented to the emergency department earlier this morning via EMS from [facility] for evaluation of altered mental status. She is known to the hospitalist service and has been admitted to us multiple times over the past year with similar complaints of altered mental status attributed to urinary tract infections. Last hospitalization was in June 2019 for the same reason and urine culture at that time grew out multidrug resistant Proteus mirabilis sensitive to ertapenem, gentamicin, pipercillian/tazobactam, tobramycin, and sulfamethoxazole/trimethoprim. In any regard, she is alert and oriented x2 at baseline however has been more confused today and thus staff sent her in for evaluation. The patient herself has no complaints at the time my evaluation but she indicates to me that she feels scared and is worried about COVID-19. I was told that she did test positive for COVID-19 on August 02, 2019 but was without symptoms. All residents at her skilled nursing were retested yesterday, results pending at this time. She is not certain as to why she was brought into the emergency department today, and is alert and oriented x2 at the time my evaluation. With further questioning, she does mention feeling slightly short of breath but goes on to say that that is not unusual for her. She has also been experiencing dysuria. She denies fever, chills, sweats, headache, cold and flu symptoms, cough, chest pain, abdominal pain, nausea, vomiting, and diarrhea. Of note, the patient is currently wearing a soft cast on her left lower extremity after sustaining a comminuted distal femur periprosthetic fracture when she fell out of bed in early July 2019. Review of Systems Review of Systems: Narrative: Twelve systems were reviewed with pertinent positives and negatives as per HPI. Except as documented, all other systems were reviewed and are negative. [facility] Past Medical History Medical History (Updated 08/22/19 @ 17:43 by Yris Pedraza PA-C) Anxiety Bipolar disorder Cerebrovascular accident Previous right occipital lobe infarct. Chronic constipation Dementia Endometriosis Essential hypertension Hypothyroidism TSH on 08/22/2019 was 1.020. Osteoarthritis Parkinson's disease With pseudobulbar affect. Recurrent urinary tract infection With history of multidrug resistant Proteus mirabilis. Schizophrenia Poorly documented in her medical history. Type 2 diabetes mellitus Poorly documented, and I see that she is on no medication for such. Hemoglobin A1c was 5.1% in September 2017. Surgical History Surgical History (Updated 08/22/19 @ 14:56 by Yris Pedraza PA-C) History of bowel resection (~2001) 5-6 inches of bowel resected to include the appendix. History of carpal tunnel release Left. History of cholecystectomy History of dilation and curettage History of salpingo-oophorectomy History of total bilateral knee replacement Family History Family History Mother Diabetes mellitus Breast cancer Father Lung cancer Social History Social History (Updated 08/22/19 @ 17:55 by Yris Pedraza PA-C) Social History: Ms. Coleman is a long-term resident at [facility]. She denies alcohol, tobacco, and drug use. She is completely dependent for all activities of daily living. Emergency contacts are Cal Coleman, son and Laverne Gardner, sister. She is listed as a do not resuscitate. Spiritual care concerns: No Agree to blood products: Yes Meds Home Medications and Allergies Home Medications Medication Instructions Recorded Confirmed Type Vraylar 1.5 mg PO DAILY 03/10/19 08/22/19 History acet
[2019-08-22 16:00] VITALS: PULSE 91
--- NOTE | 2019-08-22 17:10 | PC.NURSE ---
This patient, Kala Coleman, was admitted to [facility] Surg Room 332-01. Report received from JOHNIE Cordova. Patient/family oriented to hospital policies and general routines including ID bracelet, bed and alarms, visiting hours, pain management, procedures, bathroom and other care routines, personal items, smoking policy, room service/diet, and visiting hours. Valuables list has been completed. Information on how to activate the Rapid Response Team has been discussed. Patient/Family are encouraged to report perceived risks to care and to ask questions if they do not understand what they are told or what they should do.
[2019-08-22] MEDS: CARBIDOPA/LEVODOPA 25/100 MG TABLET 2 TABLET PO (19:53)
[2019-08-22 20:00] VITALS: PULSE 82
[2019-08-22] MEDS: SODIUM CHLORIDE 0.9% IV 1,000 ML 100 ML IV CONT (20:08)
[2019-08-22 22:00] VITALS: BP 129/81; PULSE 96; RESP 18; TEMP 36.3; O2SAT 98
[2019-08-22] MEDS: MELATONIN 5 MG TABLET 10 MG PO (23:04)
[2019-08-23] VITALS (14 sets, daily range): BP systolic 104–137; BP diastolic 66–85; PULSE 71–97; RESP 18–20; TEMP 36.3–37.3; O2SAT 98–100
[2019-08-23] MEDS: CARBIDOPA/LEVODOPA 25/100 MG TABLET 2 TABLET PO ×6 (00:43→23:09)
[2019-08-23] MEDS: TRAMADOL HCL 50 MG TABLET PO (01:19)
[2019-08-23] MEDS: LEVOTHYROXINE SODIUM 75 MCG TABLET PO (05:48)
[2019-08-23] MEDS: SODIUM CHLORIDE 0.9% IV 1,000 ML 100 ML IV CONT (06:27)
[2019-08-23 07:28] LABS: Glucose Point of Care 89 (65-105)
[2019-08-23 07:31] LABS: Glucose Point of Care 105 (65-105)
[2019-08-23] MEDS: DULOXETINE 60 MG CAPSULE.DR PO (09:53)
[2019-08-23] MEDS: RIVASTIGMINE TARTRATE 1.5 MG CAPSULE 3 MG PO ×2 (09:53→16:59)
[2019-08-23] MEDS: GABAPENTIN 100 MG CAPSULE PO ×3 (09:53→17:00)
[2019-08-23] MEDS: DOCUSATE SODIUM 100 MG CAPSULE PO (09:54)
[2019-08-23] MEDS: AMLODIPINE BESYLATE 5 MG TABLET PO (09:54)
[2019-08-23] MEDS: QUEtiapine FUMARATE 100 MG TABLET 400 MG PO (09:54)
[2019-08-23] MEDS: SENNA/DOCUSATE SODIUM TABLET 2 TAB PO ×2 (09:54→16:59)
[2019-08-23] MEDS: lamoTRIgine 100 MG TABLET PO ×2 (09:55→17:00)
[2019-08-23] MEDS: hydrOXYzine HCL 25 MG TABLET PO (09:55)
[2019-08-23] MEDS: APIXABAN 2.5 MG TABLET PO ×2 (09:55→18:38)
[2019-08-23] MEDS: POLYSACCHARIDE IRON COMPLEX 150 MG CAPSULE PO ×2 (09:55→17:00)
[2019-08-23 10:08] LABS: Glucose Point of Care 89 (65-105)
--- NOTE | 2019-08-23 11:07 | PCSTNOTE ---
Bedside swallow study completed. Please see ST evaluation for results and recommendations.
[2019-08-23] MEDS: LORAZEPAM 0.5 MG TABLET 1 MG PO (12:17)
--- NOTE | 2019-08-23 12:23 | PM.IMPN ---
Progress Note: A&P Assessment and Plan (1) Metabolic encephalopathy: Code(s): G93.41 - Metabolic encephalopathy Status: Acute Assessment and Plan: Patients baseline is reportedly alert and oriented x2. She is alert and oriented to self only today. I believe that she may have fluctuations in her mental status. She may be confused secondary to UTI however. Continue IV antibiotics Continue to monitor mental status Neurologic checks q.4 hours. (2) Urinary tract infection: Code(s): N39.0 - Urinary tract infection, site not specified Status: Acute Assessment and Plan: Patient was recently hospitalized in June 2019 with multidrug resistant Proteus mirabilis urinary tract infection. Her urinalysis is suspicious for UTI. She denies any urinary symptoms. She has been started on empiric ertapenem, given sensitivity to most recent Proteus mirabilis infection. Urine culture is pending. Will tailor antibiotics based on sensitivity. Preliminary blood cultures revealed no growth today. Final cultures will be monitored (3) Dehydration: Code(s): E86.0 - Dehydration Status: Acute Assessment and Plan: She was rehydrated with IV fluids overnight. She appears euvolemic on exam today. IV fluids have been discontinued. Patient is tolerating oral intake (4) Parkinson's disease: Code(s): G20 - Parkinson's disease Status: Acute Assessment and Plan: Stable at this time. Continue carbidopa-levodopa. (5) Essential hypertension: Code(s): I10 - Essential (primary) hypertension Status: Chronic Assessment and Plan: Blood pressures were evaluated and are well controlled. Continue amlodipine. Her home Lasix is on hold Continue to monitor blood pressures closely (6) Hypothyroidism: Code(s): E03.9 - Hypothyroidism, unspecified Status: Acute Assessment and Plan: Was evaluated and is within normal limits Continue levothyroxine. (7) Lab test positive for detection of COVID-19 virus: Code(s): U07.1 - COVID-19 Status: Acute Assessment and Plan: Patient was evaluated nursing facility on 08/02/2019 and reportedly tested positive. A repeat test was performed on 08/20/2019 at [facility]. Results are pending at this time Continue isolation precautions Await results of COVID test. I spoke with [facility] and they will plan to call with results. Subjective Date/time seen: 08/23/19 12:23 Interval history: Date of service: 08/23/2019 Ms. Coleman is seen today. She is oriented to person only. She is able to tell me her date of . She is not able to answer any additional orientation questions. She complains of being cold. She is able to answer most of my questions with yes or no. She denies fever, chills, nausea, vomiting, abdominal pain, or diarrhea. She denies cough, shortness of breath, or chest pain. She was able to tell me that she injured her leg due to a fall. She did not eat much breakfast this morning but reports she is hungry for a cheeseburger for lunch. She was noted to be anxious by nursing staff but she denies anxiety at time of my visit. She endorses weakness and fatigue. She denies dysuria, hematuria, urgency, or frequency. Review of Systems Review of Systems: Narrative: A 12 point review of systems was reviewed with pertinent positives and negatives as per HPI. Exam Narrative: Exam Narrative: Ms. Coleman is examined alone today. She is an ill appearing obese 69 year old female who is lying supine in bed. She appears to be resting comfortably and is in NARD. HR 92, BP 137/85, RR 18, T 97.3?, 100% on room air Neuro: Alert, oriented to self only, slow quiet speech, able to follow commands, no focal neuro deficits noted HEENMT: normocephalic, atraumatic, face symmetric, PERRL, EOMI, sclerae anicteric, moist oral mucosa, tongue midline Neck: supple, no lymphadenopathy, l
[2019-08-23] MEDS: ERTAPENEM 1 GM/NS 50 ML 1 GM/50 ML BAG IVPB (13:07)
[2019-08-23 18:19] LABS: Basophils Percent Auto 0.5 % (0.2-1.2); Eosinophils Absolute Auto 0.2 K/mm3 (0-0.3); Eosinophils Percent Auto 3.2 % (0-4.4); Hematocrit 37.2 % (37.0-47.0); Hemoglobin 11.4 g/dL (12.0-15.0); Immature Granulocyte Absolute 0.03 K/mm3 (0.00-0.031); Immature Granulocyte Percent A 0.5 % (0-0.5); Lymphocytes Absolute Auto 2.23 K/mm3 (0.9-3.2); Lymphocytes Percent Auto 39.1 % (18.3-44.2); Mean Corpuscular HGB Conc 30.6 g/dl (32-36); Mean Corpuscular Hemoglobin 28.1 pg (26-34); Mean Corpuscular Volume 91.9 fl (80-100); Mean Platelet Volume 8.8 fl (7.4-10.4); Monocytes Absolute Auto 0.5 K/mm3 (0.1-0.6); Monocytes Percent Auto 7.9 % (2.6-8.5); Neutrophils Absolute Auto 2.8 K/mm3 (1.3-6.7); Neutrophils Percent Auto 48.8 % (45.5-73.1); Platelet Count Result 343 k/mm3 (150-375); Red Blood Count 4.05 M/mm3 (4.2-5.4); Red Cell Distribution Width 15.2 % (11.5-14.5); White Blood Count 5.7 K/mm3 (4.5-10.0)
[2019-08-23 18:33] LABS: Alanine Aminotransferase 6 U/L (4-35); Albumin Level 2.7 g/dL (3.5-5.1); Alkaline Phosphatase 110 U/L (38-126); Aspartate Amino Transferase 32 U/L (14-36); Bilirubin,Total 0.4 mg/dL (0.2-1.3); Blood Urea Nitrogen 24 mg/dL (7-17); Calcium 8.1 mg/dL (8.4-10.2); Carbon Dioxide 24 mmol/L (22-30); Chloride 105 mmol/L (98-107); Estimated CRCL calculation 89 ml/min; Estimated Glomerular Filt Rate > 60; Glucose 100 mg/dL (65-105); Sodium 134 mmol/L (137-145)
[2019-08-23 19:38] LABS: Glucose Point of Care 90 (65-105)
[2019-08-23 19:38] LABS: Glucose Point of Care 92 (65-105)
--- NOTE | 2019-08-23 20:16 | PC.NURSE ---
Pt having difficulty at breakfast, lunch, and dinner swallowing textured foods. She will take a bite, chew for 5 minutes or so and still not swallow the bite. Encouraging bites with drinks in between. Seems to better with mashed potatoes, apple sauce. Called Dr. Coyle to ask for a pureed regular diet to encourage intake
[2019-08-23] MEDS: MELATONIN 5 MG TABLET 10 MG PO (23:09)
[2019-08-24] VITALS (12 sets, daily range): BP systolic 84–124; BP diastolic 44–75; PULSE 71–88; RESP 16–20; TEMP 36.1–36.9; O2SAT 98–100
[2019-08-24] MEDS: TRAMADOL HCL 50 MG TABLET PO (00:15)
[2019-08-24 00:32] LABS: Glucose Point of Care 80 (65-105)
[2019-08-24] MEDS: CARBIDOPA/LEVODOPA 25/100 MG TABLET 2 TABLET PO ×6 (02:15→20:33)
[2019-08-24] MEDS: LORAZEPAM 0.5 MG TABLET 1 MG PO (06:32)
[2019-08-24] MEDS: LEVOTHYROXINE SODIUM 75 MCG TABLET PO (06:32)
[2019-08-24 06:56] LABS: Basophils Percent Auto 0.6 % (0.2-1.2); Eosinophils Absolute Auto 0.2 K/mm3 (0-0.3); Eosinophils Percent Auto 3.8 % (0-4.4); Hematocrit 37.1 % (37.0-47.0); Hemoglobin 11.6 g/dL (12.0-15.0); Immature Granulocyte Absolute 0.03 K/mm3 (0.00-0.031); Immature Granulocyte Percent A 0.6 % (0-0.5); Lymphocytes Absolute Auto 2.07 K/mm3 (0.9-3.2); Lymphocytes Percent Auto 39.3 % (18.3-44.2); Mean Corpuscular HGB Conc 31.3 g/dl (32-36); Mean Corpuscular Hemoglobin 28.9 pg (26-34); Mean Corpuscular Volume 92.5 fl (80-100); Mean Platelet Volume 8.6 fl (7.4-10.4); Monocytes Absolute Auto 0.4 K/mm3 (0.1-0.6); Monocytes Percent Auto 8.3 % (2.6-8.5); Neutrophils Absolute Auto 2.5 K/mm3 (1.3-6.7); Neutrophils Percent Auto 47.4 % (45.5-73.1); Platelet Count Result 348 k/mm3 (150-375); Red Blood Count 4.01 M/mm3 (4.2-5.4); Red Cell Distribution Width 15.2 % (11.5-14.5); White Blood Count 5.3 K/mm3 (4.5-10.0)
[2019-08-24 07:43] LABS: Albumin Level 2.6 g/dL (3.5-5.1); Alkaline Phosphatase 107 U/L (38-126); Aspartate Amino Transferase 30 U/L (14-36); Bilirubin,Total 0.3 mg/dL (0.2-1.3); Blood Urea Nitrogen 22 mg/dL (7-17); Calcium 8.2 mg/dL (8.4-10.2); Carbon Dioxide 25 mmol/L (22-30); Chloride 104 mmol/L (98-107); Estimated CRCL calculation 77 ml/min; Estimated Glomerular Filt Rate > 60; Glucose 88 mg/dL (65-105); Potassium 3.7 mmol/L (3.4-5.0); Sodium 133 mmol/L (137-145)
[2019-08-24 08:00] LABS: Alanine Aminotransferase < 6 U/L (4-35)
[2019-08-24] MEDS: hydrOXYzine HCL 25 MG TABLET PO (09:37)
[2019-08-24] MEDS: SENNA/DOCUSATE SODIUM TABLET 2 TAB PO ×2 (09:37→18:20)
[2019-08-24] MEDS: GABAPENTIN 100 MG CAPSULE PO ×3 (09:37→18:21)
[2019-08-24] MEDS: APIXABAN 2.5 MG TABLET PO ×2 (09:37→18:20)
[2019-08-24] MEDS: lamoTRIgine 100 MG TABLET PO ×2 (09:37→18:21)
[2019-08-24] MEDS: POLYSACCHARIDE IRON COMPLEX 150 MG CAPSULE PO ×2 (09:37→18:21)
[2019-08-24] MEDS: DOCUSATE SODIUM 100 MG CAPSULE PO ×2 (09:37→18:20)
[2019-08-24] MEDS: RIVASTIGMINE TARTRATE 1.5 MG CAPSULE 3 MG PO ×2 (09:37→18:21)
[2019-08-24] MEDS: DULOXETINE 60 MG CAPSULE.DR PO (09:37)
[2019-08-24] MEDS: AMLODIPINE BESYLATE 5 MG TABLET PO (09:38)
[2019-08-24] MEDS: QUEtiapine FUMARATE 100 MG TABLET 400 MG PO (09:38)
[2019-08-24 09:59] LABS: Glucose Point of Care 72 (65-105)
--- NOTE | 2019-08-24 12:19 | PM.IMPN ---
Progress Note: A&P Assessment and Plan (1) Metabolic encephalopathy: Code(s): G93.41 - Metabolic encephalopathy Status: Acute Assessment and Plan: Patients baseline is reportedly alert and oriented x2. She is alert and oriented to self only today. I believe that she may have fluctuations in her mental status. She may be confused secondary to UTI however. Continue IV antibiotics Continue to monitor mental status Neurologic checks q.4 hours. (2) Urinary tract infection: Code(s): N39.0 - Urinary tract infection, site not specified Status: Acute Assessment and Plan: Patient was recently hospitalized in June 2019 with multidrug resistant Proteus mirabilis urinary tract infection. Her urinalysis is suspicious for UTI. She denies any urinary symptoms. She has been started on empiric ertapenem, given sensitivity to most recent Proteus mirabilis infection. Urine culture is pending. Will tailor antibiotics based on sensitivity.I spoke with [facility] regarding delay of results and they expect results this evening. Preliminary blood cultures revealed NGTD. Final cultures will be monitored (3) Dehydration: Code(s): E86.0 - Dehydration Status: Acute Assessment and Plan: She was rehydrated with IV fluids overnight. She appears euvolemic on exam today. IV fluids have been discontinued. Patient is tolerating oral intake (4) Parkinson's disease: Code(s): G20 - Parkinson's disease Status: Acute Assessment and Plan: Stable at this time. Continue carbidopa-levodopa. (5) Essential hypertension: Code(s): I10 - Essential (primary) hypertension Status: Chronic Assessment and Plan: Blood pressures were evaluated and are well controlled. Continue amlodipine. Her home Lasix is on hold Continue to monitor blood pressures closely (6) Hypothyroidism: Code(s): E03.9 - Hypothyroidism, unspecified Status: Acute Assessment and Plan: Was evaluated and is within normal limits Continue levothyroxine. (7) Lab test positive for detection of COVID-19 virus: Code(s): U07.1 - COVID-19 Status: Acute Assessment and Plan: Patient was evaluated nursing facility on 08/02/2019 and reportedly tested positive. A repeat test was performed on 08/20/2019 at [facility]. Results are pending at this time. She is remaining stable on 2L O2. Continue isolation precautions Await results of COVID test. I spoke with [facility] and they will plan to call with results. Subjective Date/time seen: 08/24/19 12:19 Interval history: Date of service: 08/24/2019 She is rather drowsy today. She will mumble in response to some questions. She does not indicate that she is in any pain. She has been eating with assistance. Review of Systems Review of Systems: ROS unobtainable: Yes unobtainable due to mental status Exam Narrative: Exam Narrative: Ms. Coleman is examined alone today. She is an ill appearing obese 69 year old female who is lying supine in bed. She appears to be resting comfortably and is in NARD. HR 78, BP 124/59, RR 20, T 98.4?, 100% on 2L Neuro: Drowsy, oriented to self only, slow quiet speech, no focal neuro deficits noted HEENMT: normocephalic, atraumatic, face symmetric, PERRL, EOMI, sclerae anicteric, moist oral mucosa, tongue midline Neck: supple, no lymphadenopathy, large circumference Respiratory: clear to auscultation anteriorly, normal respiratory effort without accessory muscle use Cardio: regular rate, regular rhythm, normal S1 and S2 Abdomen: normal to inspection, obese, nondistended, normoactive bowel sounds, soft, nontender, no rigidity or guarding Extremities: Left lower extremity is in a soft cast, BLE without edema, erythema, or pain to palpation, dorsal pedis pulses palpable bilaterally Skin: no rashes or lesions, warm and dry Psych: flat affect, poor insight and judgement
[2019-08-24] MEDS: ERTAPENEM 1 GM/NS 50 ML 1 GM/50 ML BAG IVPB (12:49)
[2019-08-24 18:57] LABS: Glucose Point of Care 81 (65-105)
[2019-08-24] MEDS: MELATONIN 5 MG TABLET 10 MG PO (20:33)
[2019-08-24 21:24] LABS: Glucose Point of Care 107 (65-105)
[2019-08-25] VITALS (14 sets, daily range): BP systolic 80–137; BP diastolic 33–74; PULSE 65–77; RESP 16–22; TEMP 36.6–37; O2SAT 98–100
[2019-08-25] MEDS: CARBIDOPA/LEVODOPA 25/100 MG TABLET 2 TABLET PO ×6 (02:13→21:47)
[2019-08-25] MEDS: LEVOTHYROXINE SODIUM 75 MCG TABLET PO (05:42)
[2019-08-25 06:32] LABS: Basophils Absolute Auto 0.1 K/mm3 (0.0-0.1); Basophils Percent Auto 0.9 % (0.2-1.2); Eosinophils Absolute Auto 0.3 K/mm3 (0-0.3); Eosinophils Percent Auto 4.3 % (0-4.4); Hematocrit 39.2 % (37.0-47.0); Immature Granulocyte Absolute 0.02 K/mm3 (0.00-0.031); Immature Granulocyte Percent A 0.3 % (0-0.5); Lymphocytes Absolute Auto 2.09 K/mm3 (0.9-3.2); Mean Corpuscular HGB Conc 30.6 g/dl (32-36); Mean Corpuscular Hemoglobin 28.5 pg (26-34); Mean Corpuscular Volume 93.1 fl (80-100); Mean Platelet Volume 8.8 fl (7.4-10.4); Monocytes Absolute Auto 0.6 K/mm3 (0.1-0.6); Monocytes Percent Auto 9.8 % (2.6-8.5); Neutrophils Absolute Auto 2.8 K/mm3 (1.3-6.7); Neutrophils Percent Auto 48.7 % (45.5-73.1); Platelet Count Result 300 k/mm3 (150-375); Red Blood Count 4.21 M/mm3 (4.2-5.4); Red Cell Distribution Width 15.2 % (11.5-14.5); White Blood Count 5.8 K/mm3 (4.5-10.0)
[2019-08-25 06:49] LABS: Alanine Aminotransferase 7 U/L (4-35); Albumin Level 2.7 g/dL (3.5-5.1); Alkaline Phosphatase 108 U/L (38-126); Aspartate Amino Transferase 28 U/L (14-36); Bilirubin,Total 0.4 mg/dL (0.2-1.3); Blood Urea Nitrogen 20 mg/dL (7-17); Calcium 8.4 mg/dL (8.4-10.2); Carbon Dioxide 28 mmol/L (22-30); Chloride 103 mmol/L (98-107); Estimated CRCL calculation 89 ml/min; Estimated Glomerular Filt Rate > 60; Glucose 80 mg/dL (65-105); Potassium 4.4 mmol/L (3.4-5.0); Sodium 136 mmol/L (137-145)
[2019-08-25 07:00] LABS: Glucose Point of Care 84 (65-105)
[2019-08-25 07:52] LABS: Glucose Point of Care 87 (65-105)
[2019-08-25] MEDS: DOCUSATE SODIUM 100 MG CAPSULE PO (09:02)
[2019-08-25] MEDS: AMLODIPINE BESYLATE 5 MG TABLET PO (09:02)
[2019-08-25] MEDS: APIXABAN 2.5 MG TABLET PO ×2 (09:02→17:01)
[2019-08-25] MEDS: GABAPENTIN 100 MG CAPSULE PO ×3 (09:02→17:02)
[2019-08-25] MEDS: SENNA/DOCUSATE SODIUM TABLET 2 TAB PO ×2 (09:02→17:01)
[2019-08-25] MEDS: POLYSACCHARIDE IRON COMPLEX 150 MG CAPSULE PO ×2 (09:03→17:02)
[2019-08-25] MEDS: lamoTRIgine 100 MG TABLET PO ×2 (09:03→17:13)
[2019-08-25] MEDS: QUEtiapine FUMARATE 100 MG TABLET 400 MG PO (09:03)
[2019-08-25] MEDS: RIVASTIGMINE TARTRATE 1.5 MG CAPSULE 3 MG PO ×2 (09:03→17:02)
[2019-08-25] MEDS: DULOXETINE 60 MG CAPSULE.DR PO (09:04)
[2019-08-25] MEDS: hydrOXYzine HCL 25 MG TABLET PO (09:04)
[2019-08-25] MEDS: ERTAPENEM 1 GM/NS 50 ML 1 GM/50 ML BAG IVPB (11:57)
[2019-08-25] MEDS: LORAZEPAM 0.5 MG TABLET 1 MG PO (11:58)
--- NOTE | 2019-08-25 17:17 | PM.IMPN ---
Progress Note: A&P Assessment and Plan (1) Metabolic encephalopathy: Code(s): G93.41 - Metabolic encephalopathy Status: Acute Assessment and Plan: Patients baseline is reportedly alert and oriented x2. She appears to be at her baseline. Her UTI was likely contributing as she has a hx of AMS in the past with prior UTIs. There were no acute findings on head CT. Plan to continue treatment of UTI and monitor mental status. (2) Urinary tract infection: Qualifiers: Urinary tract infection type: acute cystitis Hematuria presence: without hematuria Qualified Code(s): N30.00 - Acute cystitis without hematuria Code(s): N39.0 - Urinary tract infection, site not specified Status: Acute Assessment and Plan: Patient was recently hospitalized in June 2019 with multidrug resistant Proteus mirabilis urinary tract infection. UA was suspicious for UTI. Urine culture reveals proteus mirabilis which is susceptible to ertapenem. Plan to transition to a PO regimen at discharge. Blood cultures reveal NGTD. (3) Dehydration: Code(s): E86.0 - Dehydration Status: Resolved Assessment and Plan: She was rehydrated with IV fluids overnight. She appears euvolemic at this time and is tolerating PO intake well. (4) Parkinson's disease: Code(s): G20 - Parkinson's disease Status: Acute Assessment and Plan: Stable at this time. Continue carbidopa-levodopa. (5) Essential hypertension: Code(s): I10 - Essential (primary) hypertension Status: Chronic Assessment and Plan: Blood pressures were evaluated and were soft after she received a dose of ativan which she takes prior to admission for anxiety. Her blood pressure stabilized. Will plan to hold amlodipine and monitor closely. Her home lasix was on hold due to her dehydration. Her spironolactone is also on hold. (6) Hypothyroidism: Qualifiers: Hypothyroidism type: unspecified Qualified Code(s): E03.9 - Hypothyroidism, unspecified Code(s): E03.9 - Hypothyroidism, unspecified Status: Acute Assessment and Plan: TSH was 1.020 08/22/19. Continue levothyroxine. (7) Lab test positive for detection of COVID-19 virus: Code(s): U07.1 - COVID-19 Status: Acute Assessment and Plan: Patient was evaluated nursing facility on 08/02/2019 and reportedly tested positive for COVID-19. A repeat test was performed on 08/20/2019 at [facility]. Results are pending at this time. She is stable on 2L O2 which she was on prior to admission. Continue isolation precautions Await results of COVID test which is required for her to return to the [facility]. (8) DVT prophylaxis: Code(s): Z29.9 - Encounter for prophylactic measures, unspecified Status: Acute Assessment and Plan: Continue eliquis. Time Spent With Patient Time with patient: 15 - 25 minutes Subjective Date/time seen: 08/25/19 17:17 Interval history: I am assuming care for Mrs. Coleman who was seen and examined at bedside today. She reports that she has no complaints at this time. She denies dysuria, urgency, and frequency. She denies nausea, vomiting, and abdominal pain. She denies chest pain, shortness of breath, and palpitations. She is tolerating a pureed diet very well and her PO intake is adequate. She had a bowel movement 08/22. She denies constipation and diarrhea. She denies pain. Review of Systems Review of Systems: All systems reviewed & are unremarkable except as noted in HPI and below Exam Narrative: Exam Narrative: General: Chronically-ill appearing 69 y.o. female lying in the semi-recumbent position in bed in no acute distress. She is non-toxic in appearance. HEENT: Normocephalic and atraumatic. Conjunctivae and lids normal. EOMI. Mucous membranes are moist. Posterior pharynx without erythema or exudate. Neck: Supple without lymphadenopathy or mas
[2019-08-25 18:34] LABS: Glucose Point of Care 77 (65-105)
[2019-08-25 18:34] LABS: Glucose Point of Care 117 (65-105)
[2019-08-25] MEDS: MELATONIN 5 MG TABLET 10 MG PO (21:47)
[2019-08-25] MEDS: DOCUSATE SODIUM LIQ 100 MG/10 ML UDC PO (21:47)
[2019-08-25 22:49] LABS: Glucose Point of Care 79 (65-105)
[2019-08-26] VITALS (12 sets, daily range): BP systolic 96–140; BP diastolic 27–90; PULSE 69–78; RESP 16–20; TEMP 36.6–37.2; O2SAT 98–100; BMI 29.7
[2019-08-26] MEDS: CARBIDOPA/LEVODOPA 25/100 MG TABLET 2 TABLET PO ×6 (01:50→20:10)
[2019-08-26] MEDS: LEVOTHYROXINE SODIUM 75 MCG TABLET PO (06:12)
[2019-08-26 09:03] LABS: Potassium 4.1 mmol/L (3.4-5.0)
[2019-08-26] MEDS: APIXABAN 2.5 MG TABLET PO ×2 (09:06→17:27)
[2019-08-26] MEDS: RIVASTIGMINE TARTRATE 1.5 MG CAPSULE 3 MG PO ×2 (09:06→17:27)
[2019-08-26] MEDS: GABAPENTIN 100 MG CAPSULE PO ×3 (09:06→17:27)
[2019-08-26] MEDS: hydrOXYzine HCL 25 MG TABLET PO (09:06)
[2019-08-26] MEDS: DULOXETINE 60 MG CAPSULE.DR PO (09:06)
[2019-08-26] MEDS: QUEtiapine FUMARATE 100 MG TABLET 400 MG PO (09:06)
[2019-08-26] MEDS: lamoTRIgine 100 MG TABLET PO ×2 (09:06→17:27)
[2019-08-26] MEDS: POLYSACCHARIDE IRON COMPLEX 150 MG CAPSULE PO ×2 (09:06→17:27)
[2019-08-26] MEDS: SENNA/DOCUSATE SODIUM TABLET 2 TAB PO ×2 (09:06→17:28)
[2019-08-26] MEDS: DOCUSATE SODIUM LIQ 100 MG/10 ML UDC PO ×2 (09:07→20:10)
[2019-08-26 09:16] LABS: Blood Urea Nitrogen 15 mg/dL (7-17); Calcium 8.3 mg/dL (8.4-10.2); Carbon Dioxide 27 mmol/L (22-30); Chloride 100 mmol/L (98-107); Estimated CRCL calculation 89 ml/min; Estimated Glomerular Filt Rate > 60; Glucose 93 mg/dL (65-105); Sodium 130 mmol/L (137-145)
[2019-08-26 09:41] LABS: Glucose Point of Care 179 (65-105)
--- NOTE | 2019-08-26 10:52 | PC.NURSE ---
Talked with Deepa JETT at [facility]. She states that patient is at 2L oxygen at [place]. She also states that they do not have the results for covid test yet, but she has our number and will call when test results are back.
[2019-08-26] MEDS: ERTAPENEM 1 GM/NS 50 ML 1 GM/50 ML BAG IVPB (11:40)
[2019-08-26 12:11] LABS: Glucose Point of Care 127 (65-105)
--- NOTE | 2019-08-26 13:11 | PM.IMPN ---
Progress Note: A&P Assessment and Plan (1) Metabolic encephalopathy: Code(s): G93.41 - Metabolic encephalopathy Status: Acute Assessment and Plan: Resolved. She is alert to place, year, and person and her mental status is at baseline. She is eating well. Her UTI was likely contributing to her metabolic encephalopathy as she has a hx of AMS in the past with prior UTIs. There were no acute findings on head CT. Plan to continue the treatment of UTI and monitor mental status. (2) Urinary tract infection: Qualifiers: Hematuria presence: without hematuria Urinary tract infection type: acute cystitis Qualified Code(s): N30.00 - Acute cystitis without hematuria Code(s): N39.0 - Urinary tract infection, site not specified Status: Acute Assessment and Plan: Patient was recently hospitalized in June 2019 with multidrug resistant Proteus mirabilis urinary tract infection. UA was suspicious for UTI. Urine culture reveals proteus mirabilis which is susceptible to ertapenem. Plan to transition to a PO regimen at discharge. Blood cultures reveal NGTD. (3) Dehydration: Code(s): E86.0 - Dehydration Status: Resolved Assessment and Plan: She was rehydrated with IV fluids overnight at admission. She appears euvolemic at this time and is tolerating PO intake well. (4) Parkinson's disease: Code(s): G20 - Parkinson's disease Status: Acute Assessment and Plan: Stable at this time. Continue carbidopa-levodopa. (5) Essential hypertension: Code(s): I10 - Essential (primary) hypertension Status: Chronic Assessment and Plan: Blood pressures were evaluated and were soft after ativan which she takes prior to admission for anxiety. Ativan is on hold. Amlodipine and spironolactone are on hold. Plan to resume lasix tomorrow and monitor blood pressure closely. (6) Hypothyroidism: Qualifiers: Hypothyroidism type: unspecified Qualified Code(s): E03.9 - Hypothyroidism, unspecified Code(s): E03.9 - Hypothyroidism, unspecified Status: Acute Assessment and Plan: TSH was 1.020 08/22/19. Continue levothyroxine. (7) Lab test positive for detection of COVID-19 virus: Code(s): U07.1 - COVID-19 Status: Acute Assessment and Plan: Patient was evaluated nursing facility on 08/02/2019 and reportedly tested positive for COVID-19. A repeat test was performed on 08/20/2019 at the [facility]. Results are still pending and she cannot discharge until results are finalized. She is stable on 2L O2 which she was on prior to admission. Continue isolation precautions. Will perform a repeat COVID-19 test. (8) DVT prophylaxis: Code(s): Z29.9 - Encounter for prophylactic measures, unspecified Status: Acute Assessment and Plan: Continue eliquis. (9) Hyponatremia: Code(s): E87.1 - Hypo-osmolality and hyponatremia Status: Acute Assessment and Plan: Sodium was 130 today. BUN is 15 and Cr is 0.6. She appears euvolemic and is tolerating PO intake well so I do not suspect that this is due to hypovolemia. Plan to order urine sodium, urine creatinine, and AM cortisol. Will continue to monitor. Time Spent With Patient Time with patient: 15 - 25 minutes Subjective Date/time seen: 08/26/19 13:11 Interval history: Mrs. Coleman is seen and examined at bedside. She reports that she is doing well today. She denies dysuria, urgency, and frequency. She denies chest pain, palpitations, and dyspnea. She denies nausea, vomiting, and abdominal pain. She denies diarrhea and constipation. She is not having pain anywhere. She is hungry and is requesting to eat. She has no other concerns today. Review of Systems Review of Systems: All systems reviewed & are unremarkable except as noted in HPI and below Exam Narrative: Exam Narrative: General: Chronically-ill appearing
[2019-08-26 17:52] LABS: Glucose Point of Care 69 (65-105)
[2019-08-26 17:52] LABS: Glucose Point of Care 85 (65-105)
--- NOTE | 2019-08-26 19:17 | PC.NURSE ---
attempted to straight cath for urine creat and sodium. unable to obtain sample. Meng charge nurse attempted to straight cath and unable to obtain sample as well. [place] line construction supervisor notified. Priyank RN aware of urine samples and states that he will try again later tonight.
[2019-08-26] MEDS: MELATONIN 5 MG TABLET 10 MG PO (20:10)
[2019-08-26 20:27] LABS: Glucose Point of Care 138 (65-105)
[2019-08-27] MEDS: CARBIDOPA/LEVODOPA 25/100 MG TABLET 2 TABLET PO ×4 (00:27→12:14)
[2019-08-27 01:16] VITALS: O2SAT 97
[2019-08-27 02:00] VITALS: BP 114/60; PULSE 20; RESP 76; TEMP 36.6; O2SAT 99
[2019-08-27 06:00] VITALS: BP 119/71; PULSE 70; RESP 20; TEMP 36.4; O2SAT 99
[2019-08-27] MEDS: LEVOTHYROXINE SODIUM 75 MCG TABLET PO (06:11)
[2019-08-27 06:52] LABS: Blood Urea Nitrogen 12 mg/dL (7-17); Calcium 8.2 mg/dL (8.4-10.2); Carbon Dioxide 31 mmol/L (22-30); Chloride 100 mmol/L (98-107); Estimated CRCL calculation 89 ml/min; Estimated Glomerular Filt Rate > 60; Glucose 96 mg/dL (65-105); Potassium 3.8 mmol/L (3.4-5.0); Sodium 133 mmol/L (137-145)
[2019-08-27] MEDS: QUEtiapine FUMARATE 100 MG TABLET 400 MG PO (08:22)
[2019-08-27] MEDS: GABAPENTIN 100 MG CAPSULE PO ×2 (08:22→12:14)
[2019-08-27] MEDS: RIVASTIGMINE TARTRATE 1.5 MG CAPSULE 3 MG PO (08:22)
[2019-08-27] MEDS: lamoTRIgine 100 MG TABLET PO (08:23)
[2019-08-27] MEDS: hydrOXYzine HCL 25 MG TABLET PO (08:23)
[2019-08-27] MEDS: FUROSEMIDE 20 MG TABLET PO (08:23)
[2019-08-27] MEDS: POLYSACCHARIDE IRON COMPLEX 150 MG CAPSULE PO (08:23)
[2019-08-27] MEDS: DULOXETINE 60 MG CAPSULE.DR PO (08:23)
[2019-08-27] MEDS: APIXABAN 2.5 MG TABLET PO (08:23)
[2019-08-27] MEDS: DOCUSATE SODIUM LIQ 100 MG/10 ML UDC PO (08:23)
[2019-08-27 09:03] LABS: Glucose Point of Care 97 (65-105)
[2019-08-27 09:17] VITALS: O2SAT 95
[2019-08-27 10:00] VITALS: BP 109/67; PULSE 79; RESP 16; TEMP 36.7; O2SAT 97
[2019-08-27] MEDS: SENNA/DOCUSATE SODIUM TABLET 2 TAB PO (12:21)
[2019-08-27 12:31] LABS: Glucose Point of Care 112 (65-105)
--- NOTE | 2019-08-27 12:34 | PM.DS ---
DS: Admitting Diagnosis Admitting Diagnosis Admitting Diagnosis: Urinary tract infection, site not specified DS: Discharge Diagnosis Discharge Diagnosis (1) Metabolic encephalopathy: Code(s): G93.41 - Metabolic encephalopathy Status: Resolved (2) Urinary tract infection: Qualifiers: Hematuria presence: without hematuria Urinary tract infection type: acute cystitis Qualified Code(s): N30.00 - Acute cystitis without hematuria Code(s): N39.0 - Urinary tract infection, site not specified Status: Acute (3) Dehydration: Code(s): E86.0 - Dehydration Status: Resolved (4) Parkinson's disease: Code(s): G20 - Parkinson's disease Status: Chronic (5) Essential hypertension: Code(s): I10 - Essential (primary) hypertension Status: Chronic (6) Hypothyroidism: Qualifiers: Hypothyroidism type: unspecified Qualified Code(s): E03.9 - Hypothyroidism, unspecified Code(s): E03.9 - Hypothyroidism, unspecified Status: Acute (7) Hyponatremia: Code(s): E87.1 - Hypo-osmolality and hyponatremia Status: Acute (8) COVID-19 ruled out by laboratory testing: Code(s): Z03.818 - Encounter for observation for suspected exposure to other biological agents ruled out Status: Acute DS: Summary Hospital Course Reason for hospitalization: Altered mental status Hospital Course: Mrs. Coleman is a 61 y.o. female with PMH significant for Parkinson's disease, dementia, hypertension, hypothyroidism, schizophrenia, Bipolar Disorder, recent comminuted distal femur periprosthetic fracture July 2019 with soft cast in place following eval at [facility], and hx of recurrent urinary tract infections causing AMS who presented to the emergency department via EMS from [facility] for the evaluation of altered mental status. She was recently hospitalized June 2019 for the same complaint and urine culture revealed multidrug resistant Proteus mirabilis. She has dementia at baseline and is alert and oriented x2 at baseline. The detention reported that she tested positive for COVID-19 July but remained asymptomatic. All residents at her detention were tested the day prior to her arrival to the ED but those results were pending at admission. Initial workup in the ED revealed D-Dimer 2.15, CO2 33, BUN 34, AST 145, CRP 1.2, and platelets 546 with CBC and CMP otherwise unremarkable, CTA negative for PE, and UA highly suspicious for UTI. She was treated wit IV fluids and IV ertapenem due to hx of multidrug resistant Proteus mirabilis. Her mental status improved to baseline. She was evaluated by speech therapy who recommended helper assistance for tray set up and feeding. She was transitioned to a pureed diet which she tolerated well. She was tolerating PO intake well. She had low blood pressure when given lorazepam so that was held. Urine culture revealed proteus mirabilis which was susceptible to ertapenem. She was transitioned to PO bactrim at discharge as this the proteus mirailis was only susceptible to PO bactrim and augmentin and she is allergic to PCN. Blood cultures reveal no growth. She did have hyponatremia which improved on the day of discharge. Potassim and spironolactone were held while she is on bactrim to prevent hyperkalemia. Amlodipine was held due to hypotension caused from lorazepam and her blood pressures were at target so this was held at discharge. She will need close BP monitoring at the detention and medication adjustment as indicated per her PCP. She expressed that she was feeling much better and was eager to get back to the detention. COVID-19 testing was repeated as this was needed for readmission to the detention and was negative. She was discharged in stable condition in the afternoon of 08/27/19. Status at Discharge Functional status at discharge: wheelchair bound Overall status at discharge: patient is back to
[2019-08-27 12:36] LABS: SARS-CoV-2 RNA PCR Negative
[2019-08-27 14:00] VITALS: BP 136/59; PULSE 71; RESP 18; TEMP 36.4; O2SAT 97
== END 2019-08-27 15:20 | DRG 689 ==
LOC: ANHED 09:19 → ANH3MEDSUR 13:27
PROVIDERS: Physician Assistant; Admitting Provider Internal Medicine; Emergency Provider General Practice; PCP Family Medicine; Visit Provider Internal Medicine
DX: N30.00 Acute cystitis without hematuria (principal); G93.41 Metabolic encephalopathy; E87.1 Hypo-osmolality and hyponatremia; G20 Parkinson's disease; F02.80 Dementia in other diseases classified elsewhere, unspecified severity, without behavioral disturbance, psychotic disturbance, mood disturbance, and anxiety; B96.4 Proteus (mirabilis) (morganii) as the cause of diseases classified elsewhere; I95.2 Hypotension due to drugs; T42.4X5A Adverse effect of benzodiazepines, initial encounter; E86.0 Dehydration; I10 Essential (primary) hypertension; E03.9 Hypothyroidism, unspecified; Z20.828 Contact with and (suspected) exposure to other viral communicable diseases; F20.9 Schizophrenia, unspecified; F31.9 Bipolar disorder, unspecified; Z66 Do not resuscitate; S72.402D Unspecified fracture of lower end of left femur, subsequent encounter for closed fracture with routine healing; M97.12XD Periprosthetic fracture around internal prosthetic left knee joint, subsequent encounter; W06.XXXD Fall from bed, subsequent encounter; Z96.653 Presence of artificial knee joint, bilateral; Z79.01 Long term (current) use of anticoagulants; Z79.899 Other long term (current) drug therapy; Z88.0 Allergy status to penicillin
CPT/HCPCS: 36415; 36600; 51701; 70450; 71045; 71275; 80048; 80053; 81001; 82140; 82533; 82728; 82805; 82948; 83605; 83615; 84443; 84484; 85025; 85380; 85610; 85730; 86140; 87040; 87077; 87086; 87088; 87186; 87635; 92610; 93005; 96361; 96365; 96366; 96367; 99285; A9270; C9803; G0378; J0696; J1335; J7030; J7120; Q9967; U0003

== ENCOUNTER 2019-09-21 12:47 | Inpatient (IN) | payer MEDICARE, MEDICAID, SELFPAY ==
[2019-09-21] VITALS (9 sets, daily range): BP systolic 75–118; BP diastolic 39–94; PULSE 75–82; RESP 11–24; TEMP 36.1–36.6; O2SAT 95–100; BMI 36.3
--- NOTE | ~2019-09-21 | CT_ITS ---
EXAMINATION: CT abdomen pelvis w con DATE: 09/21/2019 15:11 INDICATION: Low abdominal pain. Hematuria. TECHNIQUE: Computed tomography (CT) of the abdomen and pelvis was performed with 100 mL Omnipaque 350 intravenous contrast. Automated exposure control and iterative reconstruction technique were employe d. The dose-length product was 1376.82 mGy-cm. COMPARISON: CT abdomen and pelvis 05/17/2016 FINDINGS: The visualized portions of the lung bases demonstrate mild atelectasis. No pleural effusion . The heart size is normal. No pericardial effusion. The liver demonstrates focal steatosis adjacent to ligamentum teres. There are changes of cholecystectomy. The spleen, pancreas, and adrenal glands a re normal. There is cortical thinning of the kidneys. There is a 9 mm cyst in right kidney. There are 5 mm and 6 mm stones in right kidney. There is a 10 mm nonobstructing stone in right renal pelvis. T here is mild right hydronephrosis. There are at least 7 stones in left kidney and left renal pelvis m easuring up to 14 mm in the renal pelvis. There is moderate left hydronephrosis. Stool distends the r ectosigmoid. There is wall thickening of the rectosigmoid with adjacent fat stranding, consistent wit h inflammation. The appendix is not visualized. There are no pathologically enlarged lymph nodes. The re is no free intraperitoneal fluid. There is moderate thoracolumbar spondylosis. Lumbar levoscoliosi s is noted. IMPRESSION: 1. Stercoral colitis. 2. 14 mm obstructive stone in left renal pelvis with moderate left hydronephrosis. Multiple nonobstru cting left kidney stones. 3. Mild right hydronephrosis. Nonobstructing right kidney stones. Reviewed, dictated and finalized at location A. IMPRESSION: 1. Stercoral colitis. 2. 14 mm obstructive stone in left renal pelvis with moderate left hydronephros is. Multiple nonobstructing left kidney stones. 3. Mild right hydronephrosis. Nonobstructing right kidney stones.
--- NOTE | ~2019-09-21 | MR_ITS ---
EXAMINATION: MR brain/brain stem wo/w con DATE: 09/24/2019 09:28 INDICATION: Dysarthria. Transient alteration of awareness. TECHNIQUE: Magnetic resonance imaging (MRI) of the brain and brainstem was performed without and with 18 cc MultiHance intravenous contrast. Sequences included sagittal and axial T1-weighted SE, axial d iffusion-weighted FS SE, axial T2*-weighted GRE, axial T2-weighted FLAIR Propeller, and axial T2-weig hted Propeller. Apparent diffusion coefficient (ADC) maps were created. COMPARISON: CT brain dated 09/23/2019 FINDINGS: Chronic right occipital lobe infarction. Generalized atrophy. There are scattered mild dagmar ventricular and subcortical white matter changes, most likely related to small vessel ischemic diseas e (microangiopathy). Paranasal sinuses are unremarkable. Structures of the posterior fossa including 7/8th cranial nerve complexes are normal. No acute infarction or hemorrhage. No abnormal contrast enh ancement. Midline sagittal images are unremarkable. IMPRESSION: 1. No acute intracranial abnormality. 2: Chronic right occipital lobe infarction. 3: Chronic age-related findings. Reviewed, dictated and finalized at location B.
--- NOTE | ~2019-09-21 | XR_ITS ---
EXAMINATION: XR retrograde pyelo w/stent LT DATE: 09/22/2019 13:58 INDICATION: Left internal ureteral stent placement TECHNIQUE: Fluoroscopic images from a left internal ureteral stent placement are submitted for review . 20 seconds of fluoroscopy time. FINDINGS: There is a left double-J internal ureteral stent projecting in expected position, with proximal Rindge loop at the level of the renal pelvis and distal loop in the pelvis within the bladder lumen. IMPRESSION: 1. Left internal ureteral stent placement. Please refer to real-time procedural findings for detail s. Reviewed, dictated and finalized at location B. IMPRESSION: 1. Left internal ureteral stent placement. Please refer to real-time procedur al findings for details.
--- NOTE | ~2019-09-21 | XR_ITS ---
XR abdomen/kub 1V DATE: 09/23/2019 12:51 INDICATION: Left renal stent placement in OR TECHNIQUE: Portable AP supine views COMPARISON: 09/22/2019 Retrograde pyelogram, stent FINDINGS: There is a left internal urinary stent, the proximal pigtail overlying the left kidney, the distal pigtail overlying the left pelvic base. Surgical clips, right upper quadrant, consistent with cholecystectomy. No evidence of bowel obstruction. IMPRESSION: Left internal urinary stent Reviewed, dictated and finalized at Location A. Reviewed, dictated and finalized at location A. IMPRESSION: Left internal urinary stent
--- NOTE | ~2019-09-21 | CT_ITS ---
EXAMINATION: CT brain wo con DATE: 09/23/2019 10:37 INDICATION: Slurred speech TECHNIQUE: Computed tomography (CT) of the head was performed without intravenous contrast. The dose- length product was 681.00 mGy-cm. The mA was adjusted according to patient size. Iterative reconstruc tion technique was employed. COMPARISON: CT dated 08/22/2019 FINDINGS: Chronic right occipital lobe infarction with encephalomalacia. Mild generalized atrophy. Th ere are scattered mild periventricular and subcortical white matter changes, most likely related to s mall vessel ischemic disease (microangiopathy). No acute intracranial hemorrhage, infarction, mass or mass effect. Paranasal sinuses and mastoids are pneumatized. No depressed skull fractures. There is intracranial atherosclerosis. IMPRESSION: 1. No acute intracranial abnormality. 2: Chronic right occipital lobe infarction. 3: Chronic age-related findings. Reviewed, dictated and finalized at location B.
[2019-09-21 13:39] LABS: Add Urine Microscopic? YES; Appearance Urine Cloudy (Clear); Bilirubin Urine Negative (Negative); Blood Urine 3+ (Negative); Color Urine Red (Yellow); Glucose Urine UA Negative (Negative); Ketones Urine Trace mg/dL (Negative); Leukocyte Esterase Ur Trace LEU/UL (Negative); Mucus Urine Rare /lpf; Nitrate Urine Negative (Negative); Protein Urine 2+ mg/dL (Negative); RBC Urine >75 /hpf (0-2); Specific Grav Ur 1.018 (1.001-1.035); Urobilinogen Urine Negative mg/dL (<2.0); WBC Clumps Urine Present /HPF; WBC Urine >75 /hpf
[2019-09-21] MEDS: SODIUM CHLORIDE 0.9% IV 1,000 ML 999 ML IV CONT (14:23)
[2019-09-21 14:30] LABS: Basophils Percent Auto 0.4 % (0.2-1.2); Eosinophils Absolute Auto 0.2 K/mm3 (0-0.3); Eosinophils Percent Auto 1.9 % (0-4.4); Hemoglobin 11.8 g/dL (12.0-15.0); Immature Granulocyte Absolute 0.04 K/mm3 (0.00-0.031); Immature Granulocyte Percent A 0.4 % (0-0.5); Lymphocytes Absolute Auto 1.49 K/mm3 (0.9-3.2); Lymphocytes Percent Auto 16.5 % (18.3-44.2); Mean Corpuscular HGB Conc 31.9 g/dl (32-36); Mean Corpuscular Hemoglobin 29.2 pg (26-34); Mean Corpuscular Volume 91.6 fl (80-100); Monocytes Absolute Auto 0.5 K/mm3 (0.1-0.6); Monocytes Percent Auto 5.3 % (2.6-8.5); Neutrophils Absolute Auto 6.8 K/mm3 (1.3-6.7); Neutrophils Percent Auto 75.5 % (45.5-73.1); Platelet Count Result 452 k/mm3 (150-375); Red Blood Count 4.04 M/mm3 (4.2-5.4); Red Cell Distribution Width 17.2 % (11.5-14.5); White Blood Count 9.1 K/mm3 (4.5-10.0)
[2019-09-21 14:41] LABS: INR 1.1
[2019-09-21 14:42] LABS: Partial Thromboplastin Time 32.1 SECONDS (22.3-36.8)
[2019-09-21 14:43] LABS: Blood Urea Nitrogen 22 mg/dL (7-17); Calcium 8.5 mg/dL (8.4-10.2); Carbon Dioxide 32 mmol/L (22-30); Chloride 92 mmol/L (98-107); Estimated CRCL calculation 61 ml/min; Estimated Glomerular Filt Rate > 60; Glucose 94 mg/dL (65-105); Sodium 130 mmol/L (137-145)
--- NOTE | 2019-09-21 16:39 | WPDURCON ---
Assessment and Plan Assessment and plan (1) Gross hematuria: Code(s): R31.0 - Gross hematuria Status: Acute Assessment and Plan: Likely a combination of her upper tract stones from with possible lower urinary tract infection. She is anticoagulated. She appears nontoxic. She has a normal creatinine. She has a normal white count. She has no flank pain. (2) Bilateral kidney stones: Code(s): N20.0 - Calculus of kidney Status: Acute Assessment and Plan: I suspect this is chronic in nature. It current she is asymptomatic from a stone standpoint. She has been admitted to the hospitalist service for antibiotics. She has a history of recurrent Proteus urinary tract infection. This is likely secondary to her stone disease. She has shows no signs of toxemia or upper urinary tract infection. She however will likely benefit from left ureteral stent placement and treatment of her stones. I have her on the operating room schedule tomorrow morning with Dr. Oropeza. I doubt this will be the case, but I will ask the nursing staff to inform us if she shows any signs of deterioration overnight. (3) Recurrent urinary tract infection: Code(s): N39.0 - Urinary tract infection, site not specified Status: Acute Assessment and Plan: Drug resistant Proteus in the past. Sensitive to ertapenem Urology Consult Note HPI Date Seen: 09/21/19 Primary Care Provider: Concepción Hinton MD Consult Narrative Narrative: Kala Coleman is a 69 year old female. She has a history of admissions for recurrence her previous urinary tract infections of with resistances. She is chronically anticoagulated. She was brought to the emergency room today for by her [place] [facility] for blood in the urine. She also endorse of lower abdominal pain. She denies any fevers. She denied any flank pain. Urinalysis is positive for red and white blood cells. If due to her lower abdominal pain a CT scan was performed. The etiology of her lower abdominal pain is likely a large fecal impaction. From a urologic standpoint she has bilateral kidney stones. She has multiple stones on the right. She has ureteropelvic junction stone on the left. There is mild hydronephrosis proximal to this. This does appear to be chronic in nature. At current she is afebrile with a normal white count and normal creatinine. She denies any previous history of stones. For past medical history is significant for psychiatric disease as well as Parkinson's disease. Review of Systems Review of Systems: All systems reviewed & are unremarkable except as noted in HPI and below PMFSH Social History Social History (Updated 08/22/19 @ 17:55 by Yris Pedraza PA-C) Social History: Ms. Coleman is a long-term resident at [facility]. She denies alcohol, tobacco, and drug use. She is completely dependent for all activities of daily living. Emergency contacts are Cal Coleman, son and Laverne Gardner, sister. She is listed as a do not resuscitate. Spiritual care concerns: No Agree to blood products: Yes Meds Home Medications and Allergies Home Medications Medication Instructions Recorded Confirmed Type Vraylar 1.5 mg PO DAILY 03/10/19 08/22/19 History acetaminophen 650 mg PO Q4H PRN 03/10/19 08/22/19 History amlodipine 5 mg PO DAILY 03/10/19 08/22/19 History benzonatate 100 - 200 mg PO TID PRN 03/10/19 08/22/19 History bisacodyl 10 mg UT DAILY PRN 03/10/19 08/22/19 History carbidopa-levodopa 2 tablet PO Q4H 03/10/19 08/22/19 History docusate sodium [Colace] 100 mg PO BID 03/10/19 08/22/19 History duloxetine 60 mg PO DAILY 03/10/19 08/22/19 History gabapentin 100 mg PO TID 03/10/19 08/22/19 History hydroxyzine HCl 25 mg PO DAILY 03/10/19 08/22/19 History lactulose 20 g PO DAILY PRN 03/10/19 08/22/19 History lamotrigine 100 mg PO BID 03/10/19 08/22/19 History levothyroxine 75 mcg PO DAILY 03/10/19 08/22/19 History me
[2019-09-21] MEDS: ERTAPENEM 1 GM/NS 50 ML 1 GM/50 ML BAG IVPB (16:51)
--- NOTE | 2019-09-21 17:35 | PC.NURSE ---
Pt has open linear skin break down on her coccyx and small circular open area on left buttocks. Present on arrival to ED
--- NOTE | 2019-09-21 18:03 | ADMGEN ---
This patient, Kala Coleman, was admitted to 2 Medical Room 244-. Patient/family oriented to hospital policies and general routines including ID bracelet, bed and alarms, visiting hours, pain management, procedures, bathroom and other care routines, personal items, smoking policy, room service/diet, and visiting hours. Valuables list has been completed. Information on how to activate the Rapid Response Team has been discussed. Patient/Family are encouraged to report perceived risks to care and to ask questions if they do not understand what they are told or what they should do.
[2019-09-21] MEDS: SODIUM CHLORIDE 0.9% IV 1,000 ML 125 ML IV CONT (18:05)
--- NOTE | 2019-09-21 19:00 | PM.IMHP ---
H&P: HPI History of Present Illness Chief complaint: Hematuria. Narrative: Kala Coleman is a 69-year-old female, hypertension, hypothyroidism, and recurrent urinary tract infections who presented to the emergency department earlier today via EMS from [facility] for evaluation of hematuria. She was recently admitted to the hospital in August 2014 with multidrug resistant Proteus mirabilis urinary tract infection and she has been feeling pretty good since that time. This morning, she complained to staff members that she was having some lower abdominal discomfort and was ultimately found to have hematuria. On arrival to the emergency department she complained of constipation and attributed her lower abdominal pain to that. A CT of the abdomen and pelvis showed stercoral and a large amount of stool was disimpacted per to the ED physician. CT also showed bilateral nephrolithiasis with a 14 millimeter obstructive stone the left renal pelvis with mild left hydronephrosis. Due to recurrent urinary tract infections and imaging findings, she is being admitted for IV antibiotics and cystoscopy tomorrow. At the time my evaluation her only complaint is of thirst. She also mentions passing quite a large amount of liquidy stool since receiving an enema in the emergency department. She denies fever and chills but was diaphoretic on arrival to the emergency department. She denies nausea and vomiting. No dysuria. No back pain. Review of Systems Review of Systems: Narrative: Twelve systems were reviewed with pertinent positives and negatives as per HPI. She denies headache. No cold or flu symptoms. No cough or shortness of breath. Except as documented, all other systems were reviewed and are negative. [facility] Past Medical History Medical History Anxiety Bipolar disorder Cerebrovascular accident Previous right occipital lobe infarct. Chronic constipation Current use of manager terminal anticoagulation Patient is not certain as to why she is on apixaban. Dementia Endometriosis Essential hypertension Hypothyroidism TSH on 08/22/2019 was 1.020. Osteoarthritis Parkinson's disease With pseudobulbar affect. Recurrent urinary tract infection With history of multidrug resistant Proteus mirabilis. Schizophrenia Poorly documented in her medical history. Type 2 diabetes mellitus Poorly documented, and I see that she is on no medication for such. Hemoglobin A1c was 5.1% in September 2017. Surgical History Surgical History History of bowel resection (~2001) 5-6 inches of bowel resected to include the appendix. History of carpal tunnel release Left. History of cholecystectomy History of dilation and curettage History of salpingo-oophorectomy History of total bilateral knee replacement Family History Family History Mother Diabetes mellitus Breast cancer Father Lung cancer Social History Social History Social History: Ms. Coleman is a long-term resident at [facility]. She denies alcohol, tobacco, and drug use. She is completely dependent for all activities of daily living. Emergency contacts are Cal Coleman, son and Laverne Gardner, sister. She is listed as a do not resuscitate. Smoking status: Unknown if ever smoked Alcohol intake: never Substance use: never Spiritual care concerns: No Agree to blood products: Yes Meds Home Medications and Allergies Home Medications Medication Instructions Recorded Confirmed Type Vraylar 1.5 mg PO DAILY 03/10/19 09/21/19 History acetaminophen 650 mg PO Q4H PRN 03/10/19 09/21/19 History amlodipine 5 mg PO DAILY 03/10/19 09/21/19 History benzonatate 100 - 200 mg PO Q8H PRN 03/10/19 09/21/19 History bisacod
--- NOTE | 2019-09-21 19:01 | PC.NURSE ---
Called to patients [facility] to verify diet orders. Spoke with nurse who stated that patient is on a puree diet with regular liquids.
--- NOTE | 2019-09-21 19:29 | ED.GENADULT ---
HPI - General Adult General Chief complaint: Urogenital-Female Stated complaint: HEMATURIA Time Seen by Provider: 09/21/19 14:01 History of Present Illness HPI narrative: Patient is a 69-year-old female who presents to the ER from her snf due to hematuria that was noticed today. Patient reports that she has some lower abdominal pain associate with this. She is diaphoretic at this time. Patient is bedbound due to her Parkinson's and immobility of her lower extremities. She is denying fever/chills/sweats. She does endorse constipation. No nausea/vomiting. Related Data Home Medications Medication Instructions Recorded Confirmed Vraylar 1.5 mg PO DAILY 03/10/19 09/21/19 acetaminophen 650 mg PO Q4H PRN 03/10/19 09/21/19 amlodipine 5 mg PO DAILY 03/10/19 09/21/19 benzonatate 100 - 200 mg PO Q8H PRN 03/10/19 09/21/19 bisacodyl 10 mg FL DAILY PRN 03/10/19 09/21/19 carbidopa-levodopa 2 tablet PO Q4H 03/10/19 09/21/19 docusate sodium [Colace] 100 mg PO BID 03/10/19 09/21/19 duloxetine 60 mg PO DAILY 03/10/19 09/21/19 gabapentin 100 mg PO TID 03/10/19 09/21/19 hydroxyzine HCl 25 mg PO DAILY 03/10/19 09/21/19 lactulose 30 ml PO DAILY PRN 03/10/19 09/21/19 lamotrigine 100 mg PO BID 03/10/19 09/21/19 levothyroxine 75 mcg PO DAILY 03/10/19 09/21/19 melatonin 10 mg PO HS 03/10/19 09/21/19 nystatin [Nyamyc] 1 applic TOPICAL Q12H PRN 03/10/19 09/21/19 ondansetron HCl [Zofran] 4 mg PO Q6H PRN 03/10/19 09/21/19 potassium chloride 20 meq PO DAILY 03/10/19 09/21/19 quetiapine 400 mg PO DAILY 03/10/19 09/21/19 rivastigmine tartrate 3 mg PO BID 03/10/19 09/21/19 sennosides-docusate sodium 2 tab-cap PO BID 03/10/19 09/21/19 sodium chloride [Saline Nasal] 2 spray INTRANASAL TID PRN 03/10/19 09/21/19 Eliquis 2.5 mg PO BID 08/22/19 09/21/19 furosemide [Lasix] 20 mg PO DAILY 08/22/19 09/21/19 spironolactone 25 mg PO DAILY 08/22/19 09/21/19 tramadol 50 mg PO TID PRN 08/22/19 09/21/19 benzocaine-menthol 1 spray TOPICAL DAILY PRN 09/21/19 09/21/19 [id number]-ztxwyyu-tiod chlor 1 ea MUCOUS MEMBRANE Q4H PRN 09/21/19 09/21/19 [Orajel 3X Mouth Sores] calcium carbonate-vitamin D3 1 tablet PO TID 09/21/19 09/21/19 [Calcium 600 with Vitamin D3] collagenase clostridium histo. 1 applic TOPICAL DAILY 09/21/19 09/21/19 [Santyl] ertapenem [Invanz] 1 g IM HS 09/21/19 09/21/19 ipratropium-albuterol [Combivent 2 puff INHALATION QID 09/21/19 09/21/19 Respimat] lorazepam [Ativan] 1 mg PO BID PRN 09/21/19 09/21/19 multivitamin 1 tablet PO DAILY 09/21/19 09/21/19 polysaccharide iron complex 150 mg PO BID 09/21/19 09/21/19 [Poly-Iron] zinc oxide 1 applic TOPICAL Q12H 09/21/19 09/21/19 Allergies Allergy/AdvReac Type Severity Reaction Status Date / Time morphine Allergy Intermediate HALLUCINATI Verified 09/21/19 17:21 ONS Penicillins Allergy Unknown Unknown Verified 09/21/19 17:21 oxycodone [From Percocet] Allergy Unknown Verified 09/21/19 17:21 Review of Systems Review of Systems: All systems reviewed & are unremarkable except as noted in HPI and below Constitutional: Constitutional: Denies chills and Denies fever(s) Comments: Sweats ENT: Denies nasal congestion and Denies sore throat Cardiovascular: Cardiovascular: Denies chest pain, Denies rapid heart rate and Denies radiating jaw, neck or arm pain Respiratory: Respiratory: Denies cough and Denies dyspnea Gastrointestinal: Gastrointestinal: Reports abdominal pain, Reports constipation, Denies nausea and Denies vomiting Genitourinary: Genitourinary: Reports hematuria, Denies dysuria and Denies flank pain [facility] Social History Social History (Updated 08/22/19 @ 17:55 by Yris Pedraza PA-C) Social History: Ms. Coleman is a long-term resident at [facility]. She denies alcohol, tobacco, and drug use. She is completely dependent for all activities of daily living. Emergency contacts are Cal Coleman, son and Laverne Jj, sister. She is listed as a do not resusc
[2019-09-22] VITALS (11 sets, daily range): BP systolic 97–145; BP diastolic 45–85; PULSE 70–92; RESP 10–21; TEMP 36.1–36.6; O2SAT 92–100; BMI 23.5
[2019-09-22] MEDS: SODIUM CHLORIDE 0.9% IV 1,000 ML 125 ML IV CONT ×3 (02:03→23:55)
[2019-09-22] MEDS: ZINC OXIDE 20% OINT 30 GM TUBE 1 APPLIC TOPICAL ×3 (02:05→20:25)
[2019-09-22] MEDS: HYDROCORTISONE ACETATE 25 MG SUPPOSITORY RECTAL ×3 (02:06→20:21)
[2019-09-22 06:09] LABS: Basophils Percent Auto 0.4 % (0.2-1.2); Eosinophils Absolute Auto 0.1 K/mm3 (0-0.3); Eosinophils Percent Auto 0.9 % (0-4.4); Hematocrit 33.3 % (37.0-47.0); Hemoglobin 10.5 g/dL (12.0-15.0); Immature Granulocyte Absolute 0.04 K/mm3 (0.00-0.031); Immature Granulocyte Percent A 0.4 % (0-0.5); Immature Platelet Fraction Pct 1.4 % (0.9-11.2); Lymphocytes Absolute Auto 2.09 K/mm3 (0.9-3.2); Lymphocytes Percent Auto 23.3 % (18.3-44.2); Mean Corpuscular HGB Conc 31.5 g/dl (32-36); Mean Corpuscular Hemoglobin 28.7 pg (26-34); Mean Platelet Volume 9.1 fl (7.4-10.4); Monocytes Absolute Auto 0.7 K/mm3 (0.1-0.6); Monocytes Percent Auto 7.7 % (2.6-8.5); Neutrophils Percent Auto 67.3 % (45.5-73.1); Platelet Count Result 388 k/mm3 (150-375); Red Blood Count 3.66 M/mm3 (4.2-5.4)
[2019-09-22 06:30] LABS: Albumin Level 2.2 g/dL (3.5-5.1); Alkaline Phosphatase 101 U/L (38-126); Aspartate Amino Transferase 22 U/L (14-36); Bilirubin,Total 0.3 mg/dL (0.2-1.3); Blood Urea Nitrogen 19 mg/dL (7-17); Calcium 7.8 mg/dL (8.4-10.2); Carbon Dioxide 29 mmol/L (22-30); Chloride 99 mmol/L (98-107); Estimated CRCL calculation 42 ml/min; Estimated Glomerular Filt Rate > 60; Glucose 83 mg/dL (65-105); Magnesium 1.9 mg/dL (1.6-2.3); Potassium 3.9 mmol/L (3.4-5.0); Sodium 132 mmol/L (137-145)
[2019-09-22 06:40] LABS: Alanine Aminotransferase < 6 U/L (4-35)
--- NOTE | 2019-09-22 07:35 | WPDUROPN2 ---
Progress Note: A&P Assessment and Plan (1) Bilateral nephrolithiasis: Code(s): N20.0 - Calculus of kidney Status: Acute Assessment and Plan: These appear to be chronic in nature. She appears to have the stone at the left UPJ with some hydronephrosis. Given that fact will go ahead and proceed with cysto left retrograde left stent placement at this time. She will need a KUB. Will need to make a determination regarding lithotripsy versus PCNL. (2) Recurrent urinary tract infection: Code(s): N39.0 - Urinary tract infection, site not specified Status: Acute Assessment and Plan: Treat infections based on culture. Subjective Subjective Date/Time Seen: 09/22/19 07:35 Principal diagnosis: Bilateral renal calculi with left hydronephrosis. Interval history: Actually has no complaints of flank pain but given her hydronephrosis and what appears to be an obstructing stone in left pelvis will proceed with cysto left retrograde pyelogram today. Review of Systems Review of Systems: All systems reviewed & are unremarkable except as noted in HPI and below Exam Const: General: no acute distress Objective Data Vital Signs Vital Signs: Vital Signs - 24 hr 09/21/19 12:52 09/21/19 14:03 09/21/19 16:49 Temperature 36.6 C Pulse Rate 77 82 80 Respiratory Rate 14 24 H 11 L Blood Pressure 115/51 L 111/51 L 75/65 L Pulse Oximetry 98 99 99 09/21/19 16:50 09/21/19 17:41 09/21/19 18:05 Temperature 36.3 C L Pulse Rate 75 75 Respiratory Rate 18 16 Blood Pressure 109/70 91/50 L 102/39 L Pulse Oximetry 96 100 09/21/19 19:54 09/21/19 20:00 09/21/19 22:00 Temperature 36.1 C L Pulse Rate 75 79 Respiratory Rate 16 20 Blood Pressure 118/94 H Pulse Oximetry 95 95 99 09/22/19 05:58 Temperature 36.4 C Pulse Rate 76 Respiratory Rate 18 Blood Pressure 145/50 H Pulse Oximetry 94 Intake/Output Intake/Output: Intake & Output 09/19/19 09/20/19 09/21/19 09/22/19 23:59 23:59 23:59 23:59 Intake Total 1100 1000 Balance 1100 1000 Meds/Results Medications: Active Medications Generic Name Dose Route Start Last Admin Trade Name Freq PRN Reason Stop Dose Admin Acetaminophen 650 mg 09/21/19 16:45 Tylenol Tablet PO Q4H PRN Mild Pain (1-3) or Fever Carbidopa/Levodopa 2 tablet 09/21/19 22:00 Sinemet 25/100 Mg PO Q4H [facility] Collagenase 1 applic 09/22/19 09:00 Santyl Oint TOPICAL DAILY [facility] Duloxetine HCl 60 mg 09/22/19 09:00 Cymbalta PO DAILY [facility] Fentanyl Citrate 50 mcg 09/21/19 16:45 Sublimaze IV PUSH Q2H PRN Pain Rated 7-10 Gabapentin 100 mg 09/22/19 09:00 Neurontin PO TID [facility] Hydrocortisone Acetate 25 mg 09/21/19 21:00 09/22/19 02:06 Anusol-Hc Suppository RECTAL 25 mg Q12HR [facility] Administration Hydroxyzine HCl 25 mg 09/22/19 09:00 Atarax Tablet PO DAILY [facility] Sodium Chloride 1,000 mls @ 100 mls/hr 09/21/19 16:45 09/22/19 02:03 Normal Saline Iv IV CONT 125 mls/hr .Q10H [facility] Administration Ertapenem 1 gm in 50 mls @ 100 mls/hr 09/22/19 18:00 Invanz 1 Gm/Ns 50 Ml IVPB Q24H [facility] Lamotrigine 100 mg 09/22/19 09:00 Lamictal PO BID [facility] Levothyroxine Sodium 75 mcg 09/22/19 06:30 Synthroid PO DAILY@0630 [facility] Lorazepam 1 mg 09/21/19 21:56 Ativan Tablet PO BID PRN Anxiety Melatonin 10 mg 09/21/19 21:00 09/21/19 22:13 Melatonin PO Not Given HS [facility] Non-Formulary Medication 1.5 mg 09/22/19 09:00 Cariprazine [Vraylar] PO 10/22/19 09:01 DAILY [facility] Ondansetron HCl 4 mg 09/21/19 16:45 Zofran Inj IV PUSH Q4H PRN Nausea Polysaccharide Iron Complex 150 mg 09/22/19 09:00 Niferex-150 PO BID [facility] Quetiapine Fumarate 400 mg 09/22/19 09:00 Seroquel PO DAILY [facility] Rivastigmine Tartrate 3 mg 09/22/19 09:00 Exelon 1.5 Mg Capsule PO BID [facility] Tolnaftate 1 a
[2019-09-22] MEDS: COLLAGENASE OINT 30 GM TUBE 1 APPLIC TOPICAL (09:06)
--- NOTE | 2019-09-22 09:10 | PM.IMPN ---
Progress Note: A&P Assessment and Plan (1) Gross hematuria: Code(s): R31.0 - Gross hematuria Status: Acute Assessment and Plan: She presented with hematuria. She is on eliquis 2.5mg PO BID. The hematuria is likely secondary to nephrolithiasis and possible lower urinary tract infection. Urology is on board. Plan for cystoscopy per urology today. Eliquis is on hold at this time. (2) Bilateral nephrolithiasis: Code(s): N20.0 - Calculus of kidney Status: Acute Assessment and Plan: CT abd/pelvis revealed 5 mm and 6 mm stones in right kidney as well as a 10 mm nonobstructing stone in the right renal pelvis with mild right hydronephrosis. There are at least 7 stones in left kidney and left renal pelvis measuring up to 14 mm in the renal pelvis with moderate left hydronephrosis. Urology is on board and recommendations are appreciated. She is not having any pain with regards to the stones but due to her recurrent urinary tract infections, she will be taken for cystoscopy with left retrograde left stent placement today. (3) Recurrent urinary tract infection: Code(s): N39.0 - Urinary tract infection, site not specified Status: Acute Assessment and Plan: She has a hx of resistant proteus mirabilis UTI. She has been started on ertapenem given recent culture and sensitivity results. Await repeat urine culture and sensitivity results. (4) Parkinson's disease: Code(s): G20 - Parkinson's disease Status: Chronic Assessment and Plan: Chronic with no acute issues. Continue carbidopa-levodopa. (5) Essential hypertension: Code(s): I10 - Essential (primary) hypertension Status: Chronic Assessment and Plan: Blood pressures were reviewed with a few isolated low readings. Her antihypertensives are on hold at this time. Amlodipine was discontinued 08/27/19 on her [facility] med list. She is currently on spironolactone prior to admission. Continue to monitor and resume spironolactone when appropriate. (6) Hypothyroidism: Qualifiers: Hypothyroidism type: unspecified Qualified Code(s): E03.9 - Hypothyroidism, unspecified Code(s): E03.9 - Hypothyroidism, unspecified Status: Acute Assessment and Plan: TSH 08/22/19 was within normal limits at 1.020. Continue levothyroxine. (7) Dehydration: Code(s): E86.0 - Dehydration Status: Acute Assessment and Plan: She appeared dry clinically and on labs. BUN and sodium are improving. Plan to continue gentle IV fluids for now as she is NPO. (8) Current use of supervisor intermediates anticoagulation: Code(s): Z79.01 - terminal system operator (current) use of anticoagulants Status: Acute Assessment and Plan: Apixaban on hold given gross hematuria. She is on chronic anticoagulation for unclear reasons. Will plan to resume when clinically appropriate. (9) Constipation: Code(s): K59.00 - Constipation, unspecified Status: Acute Assessment and Plan: CT abd/pelvis revealed stercoral colitis. She is s/p manual disimpaction and enema in the emergency department with significant relief. She has not had any further bowel movements today and is not having any abdomminal discomfort. (10) DVT prophylaxis: Code(s): Z29.9 - Encounter for prophylactic measures, unspecified Status: Acute Assessment and Plan: Continue SCDs. Chemoprophylaxis is contraindicated at this time due to hematuria. Time Spent With Patient Time with patient: less than 15 minutes Subjective Date/time seen: 09/22/19 09:10 Interval history: Mrs. Coleman is a 69 y.o. female who is seen in follow-up for nephrolithiasis and stercoral colitis. She reports that she feels much better today. Her abdominal pain resolved following fecal disimpaction. She notes that she is sleepy and hungry but has no other complaints. She denies nausea and
--- NOTE | 2019-09-22 09:54 | PC.NURSE ---
Spoke with son/POA, Cal, states he will contact [facility] and bring in Vraylar home medication that is non formulary.
--- NOTE | 2019-09-22 11:38 | WPDANESEPP ---
Anes - Eval Pre Procedure Procedure: Operation Date: 09/22/19 13:00 Proposed Procedures p Cystoscopy, Left Stent Placement - Kev Oropeza MD Date/Time: 09/22/19 11:38 Pre Op Diagnosis: Hematuria. Patient Data Age: 69 Gender: F Height: 5 ft 2 in Weight: 58.3 kg Last Vital Signs Temp 97.6 F 09/22/19 05:58 Pulse 76 09/22/19 05:58 Resp 18 09/22/19 05:58 BP 145/50 H 09/22/19 05:58 Pulse Ox 94 09/22/19 05:58 Allergies Allergy/AdvReac Type Severity Reaction Status Date / Time morphine Allergy Intermediate HALLUCINATI Verified 09/21/19 17:21 ONS Penicillins Allergy Unknown Unknown Verified 09/21/19 17:21 oxycodone [From Percocet] Allergy Unknown Verified 09/21/19 17:21 Home Medications Medication Instructions Recorded Confirmed Type Vraylar 1.5 mg PO DAILY 03/10/19 09/21/19 History acetaminophen 650 mg PO Q4H PRN 03/10/19 09/21/19 History amlodipine 5 mg PO DAILY 03/10/19 09/21/19 History benzonatate 100 - 200 mg PO Q8H PRN 03/10/19 09/21/19 History bisacodyl 10 mg RI DAILY PRN 03/10/19 09/21/19 History carbidopa-levodopa 2 tablet PO Q4H 03/10/19 09/21/19 History docusate sodium [Colace] 100 mg PO BID 03/10/19 09/21/19 History duloxetine 60 mg PO DAILY 03/10/19 09/21/19 History gabapentin 100 mg PO TID 03/10/19 09/21/19 History hydroxyzine HCl 25 mg PO DAILY 03/10/19 09/21/19 History lactulose 30 ml PO DAILY PRN 03/10/19 09/21/19 History lamotrigine 100 mg PO BID 03/10/19 09/21/19 History levothyroxine 75 mcg PO DAILY 03/10/19 09/21/19 History melatonin 10 mg PO HS 03/10/19 09/21/19 History nystatin [Nyamyc] 1 applic TOPICAL Q12H PRN 03/10/19 09/21/19 History ondansetron HCl [Zofran] 4 mg PO Q6H PRN 03/10/19 09/21/19 History potassium chloride 20 meq PO DAILY 03/10/19 09/21/19 History quetiapine 400 mg PO DAILY 03/10/19 09/21/19 History rivastigmine tartrate 3 mg PO BID 03/10/19 09/21/19 History sennosides-docusate sodium 2 tab-cap PO BID 03/10/19 09/21/19 History sodium chloride [Saline Nasal] 2 spray INTRANASAL TID PRN 03/10/19 09/21/19 History Eliquis 2.5 mg PO BID 08/22/19 09/21/19 History furosemide [Lasix] 20 mg PO DAILY 08/22/19 09/21/19 History spironolactone 25 mg PO DAILY 08/22/19 09/21/19 History tramadol 50 mg PO TID PRN 08/22/19 09/21/19 History sulfamethoxazole-trimethoprim 1 tablet PO Q12H 3 Days #6 tablet 08/27/19 09/21/19 Rx [Bactrim DS] benzocaine-menthol 1 spray TOPICAL DAILY PRN 09/21/19 09/21/19 History fethuuytve-lwideaw-dhbm chlor 1 ea MUCOUS MEMBRANE Q4H PRN 09/21/19 09/21/19 History [Orajel 3X Mouth Sores] calcium carbonate-vitamin D3 1 tablet PO TID 09/21/19 09/21/19 History [Calcium 600 with Vitamin D3] collagenase clostridium histo. 1 applic TOPICAL DAILY 09/21/19 09/21/19 History [Santyl] ertapenem [Invanz] 1 g IM HS 09/21/19 09/21/19 History ipratropium-albuterol [Combivent 2 puff INHALATION QID 09/21/19 09/21/19 History Respimat] lorazepam [Ativan] 1 mg PO BID PRN 09/21/19 09/21/19 History multivitamin 1 tablet PO DAILY 09/21/19 09/21/19 History polysaccharide iron complex 150 mg PO BID 09/21/19 09/21/19 History [Poly-Iron] zinc oxide 1 applic TOPICAL Q12H 09/21/19 09/21/19 History Laboratory Tests 09/21/19 09/21/19 09/21/19 13:29 14:22 14:22 WBC 9.1 K/mm3 K/mm3 (4.5-10.0) RBC 4.04 M/mm3 L M/mm3 (4.2-5.4) Hgb 11.8 g/dL L g/dL (12.0-15.0) Hct 37.0 % % (37.0-47.0) MCV 91.6 fl fl (80-100) MCH 29.2 pg pg (26-34) MCHC 31.9 g/dl L g/dl (32-36) RDW 17.2 % H % (11.5-14.5) Plt Count 452 k/mm3 H D k/mm3 (150-375) MPV 9.0 fl fl (7.4-10.4) Immature Gran % (Auto) 0.4 % % (0-0.5) Neut % (Auto) 75.5 % H % (45.5-73.1) Lymph % (Auto) 16.5 % L % (18.3-44.2) Garza % (Auto) 5.3 % % (2.6-8.5) Eos % (Auto) 1.9 % % (0-4.4) Baso % (Auto) 0.4 % % (0.2-1.2) Lymph
--- NOTE | 2019-09-22 11:40 | PC.NURSE ---
patient leaving floor for cystoscopy
[2019-09-22 12:22] LABS: Glucose Point of Care 81 (65-105)
[2019-09-22] MEDS: LACTATED RINGERS 1,000 ML 30 ML IV CONT ×2 (12:45→14:41)
--- NOTE | 2019-09-22 13:18 | WPDANESEFPP ---
Anes - Eval Final PreProcedure Day of Procedure 09/22/19 13:18 Patient weight: normal Heart: regular rate and rhythm Lungs: clear to auscultation Airway: Mallampati scale class II Neurological: confused Last oral intake: >/= 8 hours ASA classification: III Emergent: no Anesthetic plan: proceed Anesthesia type and monitoring: general LMA and standard monitoring Informed Consent: The patient's anesthetic plan and its attendant risks and benefits were discussed with the patient/family/POA. Questions were solicited and answers provided to the satisfaction of the patient/family/POA.
[2019-09-22] MEDS: LIDOCAINE HCL 2% GEL UROJET 10 ML PKG MUCOUS MEM (13:42)
--- NOTE | 2019-09-22 13:54 | P.OP_ITS ---
Procedure Note - Detailed Date of procedure: 09/22/19 Pre-op diagnosis: Hematuria. Bilateral renal calculi with left hydronephrosis secondary to a left UPJ calculus Post-op diagnosis: same Procedure performed: Flexible cystoscopy with left retrograde pyelogram and left ureteral stent placement 6 [place] contour Description of procedure: Patient is taken to the operative suite and correctly identified. Once anesthesia was obtained we attempted to place her in a dorsal lithotomy position were unsuccessful due to her severe contractions. As such we needed to do this via flexible cystoscope. She was prepped and draped usual sterile fashion. Sixteen [place] scope flexible was placed in the urethra. Was able to get a adequate evaluation due to some debris in the bladder. We were able to locate the left ureteral orifice and placed a wire into it all way up past the stone into the upper pole system. A [place] was advanced over this and pyelogram was performed. We then placed a 6 [place] contour stent with the proximal end coiled in the upper pole and the distal in the bladder. Sixteen [place] was inserted inflated with 10 cc sterile water. She is taken recovery stable condition. Will obtain a KUB in the morning. It was noted that there was contrast in the collecting system prior to the pyelogram which is consistent with an obstructed system. The major challenge will be dealing with a stones. She may be more benefit by having a percutaneous nephrolithotomy in having all the stones addressed at 1 time. Will discuss with Dr. Koo. Anesthesia: GLMA Surgeon: Kev Oropeza MD Drains: Yes Packing: No Pathology: none sent Complications: No immediate complications Condition: stable Disposition: PACU
[2019-09-22 14:22] LABS: Glucose Point of Care 77 (65-105)
--- NOTE | 2019-09-22 14:53 | SUR.PHASEI ---
7703 [facility] FAXED FLOOR NOTIFIED
--- NOTE | 2019-09-22 16:08 | PHAR ---
HOME MEDICATION VERIFIED BY PHARMACY: VRAYLAR 1.5MG CAPSULES ONE DAILY X 7 DAYS PER WRITTEN DIRECTIONS ON LITTLE PACKET OF CAPSULES
[2019-09-22] MEDS: DULoxetine HCL 60 MG CAPSULE.DR PO (17:04)
[2019-09-22] MEDS: hydrOXYzine HCL 25 MG TABLET PO (17:06)
[2019-09-22] MEDS: QUEtiapine FUMARATE 100 MG TABLET 400 MG PO (17:06)
[2019-09-22] MEDS: GABAPENTIN 100 MG CAPSULE PO (17:07)
[2019-09-22] MEDS: POLYSACCHARIDE IRON COMPLEX 150 MG CAPSULE PO (17:08)
[2019-09-22] MEDS: CARBIDOPA/LEVODOPA 25/100 MG TABLET 2 TABLET PO ×2 (17:09→20:21)
[2019-09-22] MEDS: lamoTRIgine 100 MG TABLET PO (17:09)
[2019-09-22] MEDS: RIVASTIGMINE TARTRATE 1.5 MG CAPSULE 3 MG PO (17:10)
[2019-09-22] MEDS: ERTAPENEM 1 GM/NS 50 ML 1 GM/50 ML BAG IVPB (17:12)
[2019-09-22 17:24] LABS: Glucose Point of Care 103 (65-105)
[2019-09-22] MEDS: MELATONIN 5 MG TABLET 10 MG PO (20:21)
[2019-09-22] MEDS: TOLNAFTATE 1% POWDER 45 GM BTL 1 APPLIC TOPICAL (20:26)
[2019-09-22] MEDS: ACETAMINOPHEN 325 MG TABLET 650 MG PO (20:30)
[2019-09-22 20:37] LABS: Glucose Point of Care 135 (65-105)
[2019-09-23 05:46] LABS: Basophils Percent Auto 0.4 % (0.2-1.2); Eosinophils Percent Auto 0.2 % (0-4.4); Hematocrit 30.7 % (37.0-47.0); Hemoglobin 9.7 g/dL (12.0-15.0); Immature Granulocyte Absolute 0.03 K/mm3 (0.00-0.031); Immature Granulocyte Percent A 0.6 % (0-0.5); Lymphocytes Absolute Auto 1.55 K/mm3 (0.9-3.2); Lymphocytes Percent Auto 29.3 % (18.3-44.2); Mean Corpuscular HGB Conc 31.6 g/dl (32-36); Mean Corpuscular Volume 91.6 fl (80-100); Monocytes Absolute Auto 0.4 K/mm3 (0.1-0.6); Monocytes Percent Auto 7.2 % (2.6-8.5); Neutrophils Absolute Auto 3.3 K/mm3 (1.3-6.7); Neutrophils Percent Auto 62.3 % (45.5-73.1); Platelet Count Result 328 k/mm3 (150-375); Red Blood Count 3.35 M/mm3 (4.2-5.4); Red Cell Distribution Width 17.2 % (11.5-14.5); White Blood Count 5.3 K/mm3 (4.5-10.0)
[2019-09-23 06:02] LABS: Blood Urea Nitrogen 23 mg/dL (7-17); Calcium 7.6 mg/dL (8.4-10.2); Carbon Dioxide 29 mmol/L (22-30); Chloride 103 mmol/L (98-107); Estimated CRCL calculation 46 ml/min; Estimated Glomerular Filt Rate > 60; Glucose 87 mg/dL (65-105); Magnesium 1.9 mg/dL (1.6-2.3); Potassium 4.1 mmol/L (3.4-5.0); Sodium 135 mmol/L (137-145)
[2019-09-23] MEDS: LEVOTHYROXINE SODIUM 75 MCG TABLET PO (06:06)
[2019-09-23 06:42] VITALS: BP 121/63; PULSE 79; RESP 18; TEMP 36.3; O2SAT 97
[2019-09-23 07:46] LABS: Glucose Point of Care 72 (65-105)
--- NOTE | 2019-09-23 07:49 | WPDANESPN ---
Anes - Prog Note Post-Op Date/Time: 09/23/19 07:49 Cardiovascular status: normal Respiratory status: normal Airway patency: baseline Mental status: other (confused thinks shes at [facility]) Post-Op hydration status: normal Vital Signs: Last Vital Signs Temp 36.3 C L 09/23/19 06:42 Pulse 79 09/23/19 06:42 Resp 18 09/23/19 06:42 BP 121/63 09/23/19 06:42 Pulse Ox 97 09/23/19 06:42 I/O: Intake & Output 09/22/19 09/22/19 09/23/19 15:59 23:59 07:59 Intake Total 1200 1530 1349 Output Total 75 300 600 Balance 1125 1230 749 Laboratory Tests 09/23/19 05:04 09/23/19 05:04 09/22/19 09/22/19 09/22/19 12:19 14:19 17:01 WBC RBC Hgb Hct MCV MCH MCHC RDW Plt Count MPV Immature Gran % (Auto) Neut % (Auto) Lymph % (Auto) Williamson % (Auto) Eos % (Auto) Baso % (Auto) Lymph # (Auto) Williamson # (Auto) Eos # (Auto) Baso # (Auto) Abs Immat Gran (auto) Absolute Neuts (auto) Absolute Nucleated RBC Nucleated RBC % Sodium Potassium Chloride Carbon Dioxide BUN Creatinine Estim Creat Clear Calc Estimated GFR Glucose POC Capillary Glucose 81 77 103 Calcium Magnesium 09/22/19 09/23/19 09/23/19 20:20 05:04 05:04 WBC 5.3 RBC 3.35 L Hgb 9.7 L Hct 30.7 L MCV 91.6 MCH 29.0 MCHC 31.6 L RDW 17.2 H Plt Count 328 MPV 9.0 Immature Gran % (Auto) 0.6 H Neut % (Auto) 62.3 Lymph % (Auto) 29.3 Williamson % (Auto) 7.2 Eos % (Auto) 0.2 Baso % (Auto) 0.4 Lymph # (Auto) 1.55 Williamson # (Auto) 0.4 Eos # (Auto) 0.0 Baso # (Auto) 0.0 Abs Immat Gran (auto) 0.03 Absolute Neuts (auto) 3.3 Absolute Nucleated RBC 0.0 Nucleated RBC % 0.0 Sodium 135 L Potassium 4.1 Chloride 103 Carbon Dioxide 29 BUN 23 H Creatinine 0.80 Estim Creat Clear Calc 46 Estimated GFR > 60 Glucose 87 POC Capillary Glucose 135 H Calcium 7.6 L Magnesium 1.9 09/23/19 07:43 WBC RBC Hgb Hct MCV MCH MCHC RDW Plt Count MPV Immature Gran % (Auto) Neut % (Auto) Lymph % (Auto) Williamson % (Auto) Eos % (Auto) Baso % (Auto) Lymph # (Auto) Williamson # (Auto) Eos # (Auto) Baso # (Auto) Abs Immat Gran (auto) Absolute Neuts (auto) Absolute Nucleated RBC Nucleated RBC % Sodium Potassium Chloride Carbon Dioxide BUN Creatinine Estim Creat Clear Calc Estimated GFR Glucose POC Capillary Glucose 72 Calcium Magnesium Microbiology 09/21/19 13:29 Urine Clean Catch Urine Culture - Preliminary Enterococcus species Post-procedural complaints: none Patient Feedback: Patient satisfied with anesthetic care.
[2019-09-23] MEDS: ACETAMINOPHEN 325 MG TABLET 650 MG PO (07:52)
[2019-09-23] MEDS: SODIUM CHLORIDE 0.9% IV 1,000 ML 100 ML IV CONT ×2 (07:52→21:08)
[2019-09-23] MEDS: lamoTRIgine 100 MG TABLET PO ×2 (07:58→17:34)
[2019-09-23] MEDS: hydrOXYzine HCL 25 MG TABLET PO (07:58)
[2019-09-23] MEDS: POLYSACCHARIDE IRON COMPLEX 150 MG CAPSULE PO ×2 (07:58→17:32)
[2019-09-23] MEDS: GABAPENTIN 100 MG CAPSULE PO ×3 (07:59→17:34)
[2019-09-23] MEDS: RIVASTIGMINE TARTRATE 1.5 MG CAPSULE 3 MG PO ×2 (07:59→17:34)
[2019-09-23] MEDS: CARBIDOPA/LEVODOPA 25/100 MG TABLET 2 TABLET PO ×4 (07:59→21:08)
[2019-09-23] MEDS: DULoxetine HCL 60 MG CAPSULE.DR PO (08:00)
[2019-09-23] MEDS: HYDROCORTISONE ACETATE 25 MG SUPPOSITORY RECTAL ×2 (08:00→21:08)
[2019-09-23] MEDS: QUEtiapine FUMARATE 100 MG TABLET 400 MG PO (08:00)
[2019-09-23] MEDS: ZINC OXIDE 20% OINT 30 GM TUBE 1 APPLIC TOPICAL ×2 (08:02→21:10)
[2019-09-23] MEDS: COLLAGENASE OINT 30 GM TUBE 1 APPLIC TOPICAL (08:12)
--- NOTE | 2019-09-23 09:07 | PM.IMPN ---
Progress Note: A&P Assessment and Plan (1) Dysarthria: Code(s): R47.1 - Dysarthria and anarthria Status: Acute Assessment and Plan: The patient had very mild dysarthria. Her mental status seems to wax and wane with her underlying dementia. She was alert and oriented x3 but concerned about where she was and asking for help. She does have Parkinson's disease and she reports a hx of speech difficulty due to her Parkinson's disease. Plan to order STAT CT brain. NIHSS was 1 for mild dysarthria. She had no other acute focal deficits. I called Dr. Madden as well who will come to evaluate the patient. Await results of STAT CT brain to r/o hemorrhage. (2) Gross hematuria: Code(s): R31.0 - Gross hematuria Status: Acute Assessment and Plan: She presented with hematuria. She is on eliquis 2.5mg PO BID. The hematuria is likely secondary to nephrolithiasis and possible lower urinary tract infection. Urology is on board. Plan for cystoscopy per urology today. Eliquis is on hold at this time. (3) Bilateral nephrolithiasis: Code(s): N20.0 - Calculus of kidney Status: Acute Assessment and Plan: CT abd/pelvis revealed 5 mm and 6 mm stones in right kidney as well as a 10 mm nonobstructing stone in the right renal pelvis with mild right hydronephrosis. There are at least 7 stones in left kidney and left renal pelvis measuring up to 14 mm in the renal pelvis with moderate left hydronephrosis. Urology is on board and recommendations are appreciated. She is not having any pain with regards to the stones but due to her recurrent urinary tract infections, she will be taken for cystoscopy with left retrograde left stent placement today. (4) Recurrent urinary tract infection: Code(s): N39.0 - Urinary tract infection, site not specified Status: Acute Assessment and Plan: She has a hx of resistant proteus mirabilis UTI. She has been started on ertapenem given recent culture and sensitivity results. Await repeat urine culture and sensitivity results. (5) Parkinson's disease: Code(s): G20 - Parkinson's disease Status: Chronic Assessment and Plan: Chronic with no acute issues. Continue carbidopa-levodopa. (6) Essential hypertension: Code(s): I10 - Essential (primary) hypertension Status: Chronic Assessment and Plan: Blood pressures were reviewed with a few isolated low readings. Her antihypertensives are on hold at this time. [facility] She is currently on spironolactone prior to admission. Continue to monitor and resume spironolactone when appropriate. (7) Hypothyroidism: Qualifiers: Hypothyroidism type: unspecified Qualified Code(s): E03.9 - Hypothyroidism, unspecified Code(s): E03.9 - Hypothyroidism, unspecified Status: Acute Assessment and Plan: TSH 08/22/19 was within normal limits at 1.020. Continue levothyroxine. (8) Dehydration: Code(s): E86.0 - Dehydration Status: Acute Assessment and Plan: She appeared dry clinically and on labs. BUN and sodium are improving. Plan to continue gentle IV fluids for now as she is NPO. (9) Current use of manager terminal anticoagulation: Code(s): Z79.01 - FDC (current) use of anticoagulants Status: Acute Assessment and Plan: Apixaban on hold given gross hematuria. She is on chronic anticoagulation for unclear reasons. Will plan to resume when clinically appropriate. (10) Constipation: Code(s): K59.00 - Constipation, unspecified Status: Acute Assessment and Plan: CT abd/pelvis revealed stercoral colitis. She is s/p manual disimpaction and enema in the emergency department with significant relief. She has not had any further bowel movements today and is not having any abdomminal discomfort. (11) Dementia:
[2019-09-23 10:00] VITALS: BP 90/52; PULSE 73; RESP 23; TEMP 36.2; O2SAT 97
--- NOTE | 2019-09-23 10:00 | PC.NURSE ---
Patient's speech appears to be slurred. Patient states I need to see my babies. Please take me back to my room. This RN redirected patient. Patient able to answer orientation questions appropriately. Lidya KEY notified of patient's change in mental status and slurred speech.
[2019-09-23 11:39] LABS: Glucose Point of Care 98 (65-105)
[2019-09-23] MEDS: ASPIRIN 81 MG ENTERIC TABLET PO (14:46)
[2019-09-23 16:31] LABS: Glucose Point of Care 99 (65-105)
[2019-09-23 20:00] VITALS: BP 90/47; PULSE 74; PULSE 79; RESP 20; TEMP 36.4; O2SAT 98
[2019-09-23] MEDS: MELATONIN 5 MG TABLET 10 MG PO (21:08)
[2019-09-23 22:25] LABS: Glucose Point of Care 94 (65-105)
[2019-09-24] VITALS (8 sets, daily range): BP systolic 99–122; BP diastolic 49–60; PULSE 66–96; RESP 18–22; TEMP 36.3–36.9; O2SAT 98–100
[2019-09-24 06:36] LABS: Basophils Percent Auto 0.8 % (0.2-1.2); Eosinophils Absolute Auto 0.2 K/mm3 (0-0.3); Eosinophils Percent Auto 3.9 % (0-4.4); Hematocrit 31.9 % (37.0-47.0); Hemoglobin 10.3 g/dL (12.0-15.0); Immature Granulocyte Absolute 0.02 K/mm3 (0.00-0.031); Immature Granulocyte Percent A 0.4 % (0-0.5); Lymphocytes Absolute Auto 2.08 K/mm3 (0.9-3.2); Lymphocytes Percent Auto 43.1 % (18.3-44.2); Mean Corpuscular HGB Conc 32.3 g/dl (32-36); Mean Corpuscular Hemoglobin 29.5 pg (26-34); Mean Corpuscular Volume 91.4 fl (80-100); Mean Platelet Volume 8.8 fl (7.4-10.4); Monocytes Absolute Auto 0.4 K/mm3 (0.1-0.6); Monocytes Percent Auto 8.5 % (2.6-8.5); Neutrophils Absolute Auto 2.1 K/mm3 (1.3-6.7); Neutrophils Percent Auto 43.3 % (45.5-73.1); Platelet Count Result 340 k/mm3 (150-375); Red Blood Count 3.49 M/mm3 (4.2-5.4); Red Cell Distribution Width 17.5 % (11.5-14.5); White Blood Count 4.8 K/mm3 (4.5-10.0)
[2019-09-24] MEDS: LEVOTHYROXINE SODIUM 75 MCG TABLET PO (06:36)
[2019-09-24 06:57] LABS: Blood Urea Nitrogen 19 mg/dL (7-17); Calcium 7.6 mg/dL (8.4-10.2); Carbon Dioxide 28 mmol/L (22-30); Chloride 104 mmol/L (98-107); Estimated CRCL calculation 72 ml/min; Estimated Glomerular Filt Rate > 60; Glucose 75 mg/dL (65-105); Potassium 3.8 mmol/L (3.4-5.0); Sodium 135 mmol/L (137-145)
--- NOTE | 2019-09-24 07:38 | WPDUROPN2 ---
Progress Note: A&P Assessment and Plan (1) Bilateral kidney stones: Code(s): N20.0 - Calculus of kidney Status: Acute Assessment and Plan: Left UPJ calculus causing hydronephrosis s/p stenting KUB - difficult to evaluate stones due to body habitus, positioning and bowel gas CT with multiple left renal calculi Would rec PCNL - May need to be seen at [place] for this. Will see if Dr Gardner has any interest in taking on her care with our group. Subjective Subjective Date/Time Seen: 09/24/19 07:38 Principal diagnosis: Obstructing left upj calculus 14mm - s/p left ureteral stent placement. Review of Systems Review of Systems: All systems reviewed & are unremarkable except as noted in HPI and below Objective Data Vital Signs Vital Signs: Vital Signs - 24 hr 09/23/19 10:00 09/23/19 20:00 09/24/19 00:00 Temperature 36.2 C L 36.4 C L Pulse Rate 73 79 66 Respiratory Rate 23 H 20 Blood Pressure 90/52 L 90/47 L Pulse Oximetry 97 98 09/24/19 04:00 Temperature 36.3 C L Pulse Rate 69 Respiratory Rate 22 H Blood Pressure 121/60 Pulse Oximetry 100 Intake/Output Intake/Output: Intake & Output 09/21/19 09/22/19 09/23/19 09/24/19 23:59 23:59 23:59 23:59 Intake Total 1100 3730 5419 Output Total 375 950 650 Balance 1100 3355 4469 -650 Meds/Results Medications: Active Medications Generic Name Dose Route Start Last Admin Trade Name Freq PRN Reason Stop Dose Admin Acetaminophen 650 mg 09/21/19 16:45 09/23/19 07:52 Tylenol Tablet PO 650 mg Q4H PRN Administration Mild Pain (1-3) or Fever Apixaban 2.5 mg 09/24/19 09:00 Eliquis PO Q12HR WAI Aspirin 81 mg 09/24/19 09:00 Aspirin Ec PO QAM WAI Carbidopa/Levodopa 2 tablet 09/22/19 13:00 09/23/19 21:08 Sinemet 25/100 Mg PO 2 tablet QID WAI Administration Collagenase 1 applic 09/22/19 09:00 09/23/19 08:12 Santyl Oint TOPICAL 1 applic DAILY WAI Administration Duloxetine HCl 60 mg 09/22/19 09:00 09/23/19 08:00 Cymbalta PO 60 mg DAILY WAI Administration Fentanyl Citrate 25 mcg 09/22/19 13:19 Sublimaze IV PUSH Q2M PRN Pain Gabapentin 100 mg 09/22/19 09:00 09/23/19 17:34 Neurontin PO 100 mg TID WAI Administration Hydrocortisone Acetate 25 mg 09/21/19 21:00 09/23/19 21:08 Anusol-Hc Suppository RECTAL 25 mg Q12HR WAI Administration Hydroxyzine HCl 25 mg 09/22/19 09:00 09/23/19 07:58 Atarax Tablet PO 25 mg DAILY [facility]AI Administration Sodium Chloride 1,000 mls @ 100 mls/hr 09/21/19 16:45 09/23/19 21:08 Normal Saline Iv IV CONT 100 mls/hr .Q10H [facility]AI Administration Vancomycin HCl 1,500 mg in 500 mls @ 333.333 mls/hr 09/23/19 09:00 09/24/19 02:18 Vancomycin 1,500 Mg/D5w 500 Ml IVPB 200 mls/hr Q18H [facility]AI Administration Lamotrigine 100 mg 09/22/19 09:00 09/23/19 17:34 Lamictal PO 100 mg BID WAI Administration Levothyroxine Sodium 75 mcg 09/22/19 06:30 09/24/19 06:36 Synthroid PO 75 mcg DAILY@0630 [facility]AI Administration Lorazepam 1 mg 09/21/19 21:56 Ativan Tablet PO BID PRN Anxiety Melatonin 10 mg 09/21/19 21:00 09/23/19 21:08 Melatonin PO 10 mg HS [facility]AI Administration Ondansetron HCl 4 mg 09/21/19 16:45 Zofran Inj IV PUSH Q4H PRN Nausea Ondansetron HCl 4 mg 09/22/19 13:19 Zofran Inj IV PUSH ONCE PRN Nausea Polysaccharide Iron Complex 150 mg 09/22/19 09:00 09/23/19 17:32 Niferex-150 PO 150 mg BID WAI Administration Quetiapine Fumarate 400 mg 09/22/19 09:00 09/23/19 08:00 Seroquel PO 400 mg DAILY [facility]AI Administration Rivastigmine Tartrate 3 mg 09/22/19 09:00 09/23/19 17:34 Exelon 1.5 Mg Capsule PO 3 mg BID WAI Administration Tolnaftate 1 applic 09/21/19 22:11 09/22/19 20:26 Tolnaftate 1% Powder TOPICAL 1 applic Q12HR PRN Administration YEAST Zinc Oxide 1 applic
[2019-09-24 07:48] LABS: Glucose Point of Care 69 (65-105)
--- NOTE | 2019-09-24 07:49 | PC.NURSE ---
Patient's blood glucose at 69 with check prior to breakfast. Apple juice given to patient and will recheck BG.
[2019-09-24 07:51] LABS: Cholesterol 124 mg/dL (0-200); HDL Direct 40 mg/dL; Triglycerides 107 mg/dL (<150)
[2019-09-24 08:02] LABS: LDL Cholesterol Direct 58 mg/dL
[2019-09-24] MEDS: APIXABAN 2.5 MG TABLET PO ×2 (08:05→21:20)
[2019-09-24] MEDS: GABAPENTIN 100 MG CAPSULE PO ×3 (08:05→16:30)
[2019-09-24] MEDS: DULoxetine HCL 60 MG CAPSULE.DR PO (08:06)
[2019-09-24] MEDS: POLYSACCHARIDE IRON COMPLEX 150 MG CAPSULE PO ×2 (08:07→16:31)
[2019-09-24] MEDS: ASPIRIN 81 MG ENTERIC TABLET PO (08:07)
[2019-09-24] MEDS: CARBIDOPA/LEVODOPA 25/100 MG TABLET 2 TABLET PO (08:07)
[2019-09-24] MEDS: HYDROCORTISONE ACETATE 25 MG SUPPOSITORY RECTAL ×2 (08:07→21:20)
[2019-09-24] MEDS: lamoTRIgine 100 MG TABLET PO ×2 (08:08→16:32)
[2019-09-24] MEDS: RIVASTIGMINE TARTRATE 1.5 MG CAPSULE 3 MG PO ×2 (08:08→16:32)
[2019-09-24] MEDS: hydrOXYzine HCL 25 MG TABLET PO (08:08)
[2019-09-24] MEDS: QUEtiapine FUMARATE 100 MG TABLET 400 MG PO (08:08)
[2019-09-24 09:28] LABS: Glucose Point of Care 96 (65-105)
[2019-09-24] MEDS: LORazepam 1 MG TABLET PO (10:01)
[2019-09-24] MEDS: TOLNAFTATE 1% POWDER 45 GM BTL 1 APPLIC TOPICAL (10:22)
[2019-09-24] MEDS: COLLAGENASE OINT 30 GM TUBE 1 APPLIC TOPICAL (10:22)
[2019-09-24] MEDS: ZINC OXIDE 20% OINT 30 GM TUBE 1 APPLIC TOPICAL ×2 (10:22→21:20)
--- NOTE | 2019-09-24 10:43 | PM.IMPN ---
Progress Note: A&P Assessment and Plan (1) Discharge planning issues: Code(s): Z02.9 - Encounter for administrative examinations, unspecified Status: Acute Assessment and Plan: She will need COVID-19 testing prior to discharge. COVID-19 testing has been ordered and pending. Hopeful discharge as soon as the results are available. (2) Dysarthria: Code(s): R47.1 - Dysarthria and anarthria Status: Acute Assessment and Plan: The patient had very mild dysarthria yesterday 09/22. Her mental status seems to wax and wane with her underlying dementia. She was alert and oriented x3 but concerned about where she was and asking for help. She does have Parkinson's disease and she reports a hx of speech difficulty due to her Parkinson's disease. STAT CT brain was negative for acute hemorrhage or ischemia. NIHSS was 1 for mild dysarthria. I discussed the case with Dr. Madden. She was not a candidate for TPA due to hematuria and recent eliquis treatment. She was treated with ASA. MRI brain revealed no evidence of acute infarction, chronic right occipital lobe infarction, and chronic age-related findings. Plan to continue ASA EC 81mg. LDL is 58. HDL is 40. LFTs are WNL. Will start low dose statin due to hx of CVA for secondary prevention. (3) Gross hematuria: Code(s): R31.0 - Gross hematuria Status: Acute Assessment and Plan: She presented with hematuria. She is on eliquis 2.5mg PO BID. The hematuria is likely secondary to nephrolithiasis and possible lower urinary tract infection. Urology is on board. Her hematuria appears to be resolving. Await recommendations from urology regarding her rubio. Resume eliquis 2.5mg today after discussion with urology who has no plans for acute intervention. Monitor closely for any bleeding. (4) Bilateral nephrolithiasis: Code(s): N20.0 - Calculus of kidney Status: Acute Assessment and Plan: CT abd/pelvis revealed 5 mm and 6 mm stones in right kidney as well as a 10 mm nonobstructing stone in the right renal pelvis with mild right hydronephrosis. There are at least 7 stones in left kidney and left renal pelvis measuring up to 14 mm in the renal pelvis with moderate left hydronephrosis. Urology is on board and recommendations are appreciated. She is not having any pain with regards to the stones but due to her recurrent urinary tract infections, she underwent cystoscopy with left retrograde pyelogram and left ureteral stent placement by urology 09/21. Per urology notes, they will discuss possible percutaneous nephrolithotomy in the outpatient setting and they may refer her to [facility] to have this accomplished. Management per urology. (5) Recurrent urinary tract infection: Code(s): N39.0 - Urinary tract infection, site not specified Status: Acute Assessment and Plan: She has a hx of resistant proteus mirabilis UTI and was treated with ertapenem initially. Urine culture revealed enterococcus so IV ertapenem was discontinued and IV vancomycin was initiated. Await final urine cultures and sensitivities. (6) Parkinson's disease: Code(s): G20 - Parkinson's disease Status: Chronic Assessment and Plan: Chronic with no acute issues. Continue carbidopa-levodopa. (7) Essential hypertension: Code(s): I10 - Essential (primary) hypertension Status: Chronic Assessment and Plan: Blood pressures were reviewed. She has had a few isolated low readings. Amlodipine was [facility] 08/27/19 [facility] She is on spironolactone prior to admission which is on hold. Continue to monitor blood pressures closely and resume spironolactone when appropriate. (8) Hypothyroidism: Qualifiers: Hypothyroidism type: unspecified Qualified Code(s): E03.9 - Hypothyroidism, unspecified Code(s): E03.9 - Hypothyroidism, unspecified Status: Acute Assessment
[2019-09-24 11:41] LABS: Glucose Point of Care 114 (65-105)
[2019-09-24] MEDS: CARBIDOPA/LEVODOPA 25/250 MG TABLET 1 TABLET PO ×3 (12:56→21:20)
[2019-09-24] MEDS: ATORVASTATIN 10 MG TABLET PO (12:56)
[2019-09-24] MEDS: SODIUM CHLORIDE 0.9% IV 1,000 ML 100 ML IV CONT (16:28)
--- NOTE | 2019-09-24 16:39 | CONS_ITS ---
DATE OF CONSULTATION: 09/22/2019 HISTORY OF PRESENT ILLNESS: A 69-year-old lady has been admitted to [facility] through the emergency room for the complaints of hematuria. In addition to the ongoing diagnosis of: 1. Hypertension. 2. Hypothyroidism. 3. Recurrent urinary tract infection. 4. Anxiety with bipolar disorder. 5. History of the right occipital lobe infarct in the past for which patient was on anticoagulation therapy. 6. History of dementia. 7. Parkinson's disease with osteoarthritis and type 2 diabetes mellitus. Additionally, patient has undergone bowel resection in 2001, carpal tunnel release on the left side, cholecystectomy, salpingo-oophorectomy, bilateral total knee replacement. She resides at the [facility] with no history of alcohol or tobacco or drugs abuse. She has been taking multiple medications as listed. On initial examination by the physician on the day of admission, she was found to have the findings suggestive of underlying Parkinson disease that is masked facies. Difficulties in giving the full account, but oriented to the name and the date of , cogwheeling of the upper extremities and also lower extremities. Since that initial admission, the patient has been seen by the urologist and anesthesiology. She has undergone procedures and now neuro consultation has been obtained for the ongoing neurological care. Most recently, she has been noted to be dysarthric. She has been taken care by the urologist with the placement of the left retrograde pyelogram, left ureteral stent placement. She has already had the cystoscopic examination. PRESENT MEDICATIONS: Include: 1. Duloxetine 60 mg daily. 2. Gabapentin 100 three times a day. 3. Lamotrigine 100 twice a day. 4. Levothyroxine 75 mcg daily. 5. Seroquel 400 mg daily. 6. Rivastigmine 1.5 mg 2 of them three times a day. 7. Carbidopa-levodopa 25/100 two tablets q.i.d. 8. Aspirin 81 mg daily. 9. Apixaban 2.5 mg q.12h. 10. Atorvastatin 10 mg daily. PHYSICAL EXAMINATION: VITAL SIGNS: She was noted to be afebrile with pulse 77, respiration 14, blood pressure 115/51, and a pulse ox of 98%. GENERAL: Today, she is awake, alert, in no obvious acute distress. While lying in the bed, she had a good eye contact. NEUROLOGIC: Try to follow the instructions given by the physician. There is look to the right, look to the left with no obvious nystagmus. Palpebral fissure same normal. Pupils round, regular, sluggish. Facial sensation is intact. Face symmetrical. Tongue in midline. Uvula midline. Motor examination revealed her to have bilateral weakness 3/5 with cogwheeling, tremor and brisk reflexes. Plantars are downgoing. Considering the history and also the finding of severe Parkinson's disease, and Sinemet only, carbidopa-levodopa only 25/100 two tablets q.i.d. I will increase her medication to 25/250 one tablet 4 times a day. In addition, she will be continued on the apixaban as the reason for hematuria has been somewhat taken care and the anti-dementia medication that is rivastigmine as such and Seroquel for her bipolar illness as such and if any further question arises, please do not hesitate to contact me. Most recently, her lab shows that she is 10.3, hemoglobin with platelet count of 340. Sodium 135, BUN 19, potassium 3.8, chloride 104, CO2 28, calcium 7.6, triglyceride 107, cholesterol 124, LDL 58, HDL 40, and she has been treated for the infection. Urine culture was positive. If any further question arises, please do not hesitate to contact me. EMMA WHITE M.D. DIGITAL ACCOUNT DIRECTOR DIGITAL ACCOUNT DIRECTOR D I MT: [place]
[2019-09-24 16:44] LABS: Glucose Point of Care 92 (65-105)
[2019-09-24 19:12] LABS: SARS-CoV-2 RNA PCR Negative
[2019-09-24] MEDS: MELATONIN 5 MG TABLET 10 MG PO (21:20)
[2019-09-24 22:00] LABS: Glucose Point of Care 89 (65-105)
[2019-09-25] VITALS (7 sets, daily range): BP systolic 91–138; BP diastolic 49–64; PULSE 74–93; RESP 18–20; TEMP 36–36.8; O2SAT 98–100
[2019-09-25] MEDS: SODIUM CHLORIDE 0.9% IV 1,000 ML 100 ML IV CONT ×2 (05:05→15:43)
[2019-09-25] MEDS: LEVOTHYROXINE SODIUM 75 MCG TABLET PO (06:13)
[2019-09-25 07:52] LABS: Glucose Point of Care 54 (65-105)
[2019-09-25 07:52] LABS: Basophils Absolute Auto 0.1 K/mm3 (0.0-0.1); Eosinophils Absolute Auto 0.2 K/mm3 (0-0.3); Hematocrit 35.1 % (37.0-47.0); Hemoglobin 10.9 g/dL (12.0-15.0); Immature Granulocyte Absolute 0.02 K/mm3 (0.00-0.031); Immature Granulocyte Percent A 0.3 % (0-0.5); Lymphocytes Absolute Auto 2.18 K/mm3 (0.9-3.2); Lymphocytes Percent Auto 36.6 % (18.3-44.2); Mean Corpuscular HGB Conc 31.1 g/dl (32-36); Mean Corpuscular Hemoglobin 28.8 pg (26-34); Mean Corpuscular Volume 92.6 fl (80-100); Mean Platelet Volume 8.8 fl (7.4-10.4); Monocytes Absolute Auto 0.5 K/mm3 (0.1-0.6); Monocytes Percent Auto 8.7 % (2.6-8.5); Neutrophils Absolute Auto 2.9 K/mm3 (1.3-6.7); Neutrophils Percent Auto 49.4 % (45.5-73.1); Platelet Count Result 375 k/mm3 (150-375); Red Blood Count 3.79 M/mm3 (4.2-5.4); Red Cell Distribution Width 17.8 % (11.5-14.5)
--- NOTE | 2019-09-25 08:03 | PC.NURSE ---
Patient's blood glucose at 54 with check prior to breakfast. Apple juice given to patient and will recheck BG.
[2019-09-25 08:09] LABS: Blood Urea Nitrogen 13 mg/dL (7-17); Calcium 7.9 mg/dL (8.4-10.2); Carbon Dioxide 23 mmol/L (22-30); Chloride 106 mmol/L (98-107); Estimated CRCL calculation 99 ml/min; Estimated Glomerular Filt Rate > 60; Glucose 61 mg/dL (65-105); Magnesium 1.9 mg/dL (1.6-2.3); Potassium 3.9 mmol/L (3.4-5.0); Sodium 135 mmol/L (137-145)
[2019-09-25 08:38] LABS: Glucose Point of Care 93 (65-105)
[2019-09-25 08:38] LABS: Glucose Point of Care 61 (65-105)
--- NOTE | 2019-09-25 09:04 | PM.IMPN ---
Progress Note: A&P Assessment and Plan (1) Recurrent urinary tract infection: Code(s): N39.0 - Urinary tract infection, site not specified Status: Acute Assessment and Plan: She has a hx of resistant proteus mirabilis UTI and was treated with ertapenem initially. Urine culture revealed enterococcus so IV ertapenem was discontinued and IV vancomycin was initiated 09/22. Urine cultures reveal susceptibility to vancomycin, resistance to ampicillin, and intermediate susceptibility to nitrofurantoin. Discussed with urology who recommends 4 days of IV vancomycin and with transition to PO macrobid after she completes 4 days of IV therapy. (2) Discharge planning issues: Code(s): Z02.9 - Encounter for administrative examinations, unspecified Status: Acute Assessment and Plan: She will need COVID-19 testing prior to discharge. COVID-19 testing was negative. She will need a second COVID-19 test as her urine cultures revealed resistant enterococcus and she requires additional days of IV antibiotic therapy. (3) Bilateral nephrolithiasis: Code(s): N20.0 - Calculus of kidney Status: Acute Assessment and Plan: CT abd/pelvis revealed 5 mm and 6 mm stones in right kidney as well as a 10 mm nonobstructing stone in the right renal pelvis with mild right hydronephrosis. There are at least 7 stones in left kidney and left renal pelvis measuring up to 14 mm in the renal pelvis with moderate left hydronephrosis. Urology is on board and recommendations are appreciated. She is not having any pain with regards to the stones but due to her recurrent urinary tract infections, she underwent cystoscopy with left retrograde pyelogram and left ureteral stent placement by urology 09/21. Discussed with Dr. Oropeza today and she is not a candidate for lithotripsy. She will need a percutaneous nephrolithotomy. Dr. Oropeza will see if his team will do this or if he will refer her to [facility]. The stent placed will need to be removed within 3 months so this procedure will need to take place prior to stent removal. Appreciate urology input and management per urology. (4) Dysarthria: Code(s): R47.1 - Dysarthria and anarthria Status: Acute Assessment and Plan: 09/22 - The RN reported concerns for mild dysarthria. Her mental status seems to wax and wane with her underlying dementia. She was alert and oriented x3 but concerned about where she was and asking for help. She does have Parkinson's disease and she reports a hx of speech difficulty due to her Parkinson's disease. STAT CT brain was negative for acute hemorrhage or ischemia. NIHSS was 1 for mild dysarthria. I discussed the case with Dr. Madden. She was not a candidate for TPA due to hematuria and recent eliquis treatment. She was treated with ASA. MRI brain revealed no evidence of acute infarction, chronic right occipital lobe infarction, and chronic age-related findings. Plan to continue ASA EC 81mg. LDL is 58. HDL is 40. LFTs are WNL. Will start low dose statin due to hx of CVA for secondary prevention. Appreciate neurology input. (5) Gross hematuria: Code(s): R31.0 - Gross hematuria Status: Resolved Assessment and Plan: Resolved. Secondary to bilateral nephrolithiasis. She is s/p cystoscopy with left retrograde pyelogram and left ureteral stent placement by urology 09/21. Eliquis was held initially and resumed 09/23. (6) Parkinson's disease: Code(s): G20 - Parkinson's disease Status: Chronic Assessment and Plan: Chronic with no acute issues. Continue carbidopa-levodopa. She was evaluated by neurology who has recommended she increase her carbidopa-levodopa to 25/250 QID. Appreciate neurology input. (7) Essential hypertension: Code(s): I10 - Essential (primary) hypertension Status: Chronic Assessment and Plan: Blood pressures were reviewed. AM BP was 138/64. She does have intermitte
[2019-09-25] MEDS: POLYSACCHARIDE IRON COMPLEX 150 MG CAPSULE PO ×2 (09:59→17:16)
[2019-09-25] MEDS: ASPIRIN 81 MG ENTERIC TABLET PO (09:59)
[2019-09-25] MEDS: APIXABAN 2.5 MG TABLET PO (09:59)
[2019-09-25] MEDS: CARBIDOPA/LEVODOPA 25/250 MG TABLET 1 TABLET PO ×4 (09:59→21:31)
[2019-09-25] MEDS: GABAPENTIN 100 MG CAPSULE PO ×3 (10:00→17:15)
[2019-09-25] MEDS: ATORVASTATIN 10 MG TABLET PO (10:00)
[2019-09-25] MEDS: hydrOXYzine HCL 25 MG TABLET PO (10:01)
[2019-09-25] MEDS: HYDROCORTISONE ACETATE 25 MG SUPPOSITORY RECTAL ×2 (10:01→21:32)
[2019-09-25] MEDS: DULoxetine HCL 60 MG CAPSULE.DR PO (10:01)
[2019-09-25] MEDS: lamoTRIgine 100 MG TABLET PO ×2 (10:01→17:16)
[2019-09-25] MEDS: RIVASTIGMINE TARTRATE 1.5 MG CAPSULE 3 MG PO ×2 (10:02→17:15)
[2019-09-25] MEDS: QUEtiapine FUMARATE 100 MG TABLET 400 MG PO (10:02)
[2019-09-25] MEDS: LORazepam 1 MG TABLET PO ×2 (11:31)
[2019-09-25] MEDS: ACETAMINOPHEN 325 MG TABLET 650 MG PO (11:31)
[2019-09-25] MEDS: ZINC OXIDE 20% OINT 30 GM TUBE 1 APPLIC TOPICAL ×2 (11:33→21:37)
[2019-09-25] MEDS: COLLAGENASE OINT 30 GM TUBE 1 APPLIC TOPICAL (11:33)
--- NOTE | 2019-09-25 11:34 | PCNFU ---
Nutrition Follow-Up Complete: Increased protein needs r/t skin breakdown on lateral ankle as evidence by daily protein needs of 58-70g Goal: PO intake of 75% of meals and supplements to meet increased needs Patient is progressing towards goal. We will continue current goal. Pt current nutrition is Pureed, Level 4. Nutrition recommendation: Agree Last recorded weight is 99.2 kg. Bowel Motility:+BM noted 09/24 Labs Reviewed:Glu 61,Cr 0.5, Na 135,Hct 35.1,Hgb 10.9 Meds Noted: Ativan,NS at 100 ml/hr, Cymbalta Additional Notes: Spoke with nursing today, patient remains on a Pureed diet with meal assistance. Still some confusion noted. Oral Intake has been 50-100% of meals. Agree with diet orders as well as Luis BID for wound healing. Monitoring: PO intake, skin, labs, wt every five days
[2019-09-25 12:40] LABS: Glucose Point of Care 108 (65-105)
[2019-09-25 14:36] LABS: Vancomycin Trough 15.1 ug/mL (10.0-20.0)
--- NOTE | 2019-09-25 15:53 | PC.NURSE ---
Call to pharmacist to clarify giving 1500 dose of vancomycin with vanc trough of 15.1. Per pharmacist give dose.
[2019-09-25 16:36] LABS: Glucose Point of Care 112 (65-105)
[2019-09-25 17:32] LABS: IFOB Positive Control Positive; Immunochemical Fecal Occult Bl Positive (N)
[2019-09-25 19:22] LABS: SARS-CoV-2 RNA PCR Negative
[2019-09-25] MEDS: MELATONIN 5 MG TABLET 10 MG PO (21:33)
[2019-09-25 23:59] LABS: Glucose Point of Care 86 (65-105)
[2019-09-26] MEDS: SODIUM CHLORIDE 0.9% IV 1,000 ML 100 ML IV CONT (05:29)
[2019-09-26 05:42] LABS: Hematocrit 32.2 % (37.0-47.0); Hemoglobin 10.2 g/dL (12.0-15.0); Mean Corpuscular HGB Conc 31.7 g/dl (32-36); Mean Corpuscular Hemoglobin 28.9 pg (26-34); Mean Corpuscular Volume 91.2 fl (80-100); Mean Platelet Volume 8.6 fl (7.4-10.4); Platelet Count Result 355 k/mm3 (150-375); Red Blood Count 3.53 M/mm3 (4.2-5.4); Red Cell Distribution Width 17.8 % (11.5-14.5); White Blood Count 5.1 K/mm3 (4.5-10.0)
[2019-09-26] MEDS: LEVOTHYROXINE SODIUM 75 MCG TABLET PO (05:42)
[2019-09-26 05:55] LABS: Blood Urea Nitrogen 17 mg/dL (7-17); Carbon Dioxide 30 mmol/L (22-30); Chloride 105 mmol/L (98-107); Estimated CRCL calculation 84 ml/min; Estimated Glomerular Filt Rate > 60; Glucose 78 mg/dL (65-105); Sodium 135 mmol/L (137-145)
--- NOTE | 2019-09-26 08:05 | PC.NURSE ---
Patient's glucose was 65, gave apple juice and rechecked blood sugar which increased to 76. Informed MD of low blood sugar. Will continue to monitor.
[2019-09-26 08:06] LABS: Glucose Point of Care 65 (65-105)
[2019-09-26 08:06] LABS: Glucose Point of Care 76 (65-105)
[2019-09-26] MEDS: lamoTRIgine 100 MG TABLET PO ×2 (08:56→18:02)
[2019-09-26] MEDS: HYDROCORTISONE ACETATE 25 MG SUPPOSITORY RECTAL ×2 (08:56→22:32)
[2019-09-26] MEDS: hydrOXYzine HCL 25 MG TABLET PO (08:56)
[2019-09-26] MEDS: POLYSACCHARIDE IRON COMPLEX 150 MG CAPSULE PO ×2 (08:56→18:00)
[2019-09-26] MEDS: CARBIDOPA/LEVODOPA 25/250 MG TABLET 1 TABLET PO ×4 (08:56→22:34)
[2019-09-26] MEDS: ASPIRIN 81 MG ENTERIC TABLET PO (08:56)
[2019-09-26] MEDS: QUEtiapine FUMARATE 100 MG TABLET 400 MG PO (08:56)
[2019-09-26] MEDS: ATORVASTATIN 10 MG TABLET PO (08:57)
[2019-09-26] MEDS: DULoxetine HCL 60 MG CAPSULE.DR PO (08:57)
[2019-09-26] MEDS: GABAPENTIN 100 MG CAPSULE PO ×3 (08:57→18:01)
[2019-09-26] MEDS: RIVASTIGMINE TARTRATE 1.5 MG CAPSULE 3 MG PO ×2 (08:57→18:01)
[2019-09-26 09:24] VITALS: BP 105/82; PULSE 93; RESP 24; TEMP 36.7; O2SAT 100
[2019-09-26] MEDS: PANTOPRAZOLE 40 MG TABLET PO (10:30)
--- NOTE | 2019-09-26 10:30 | PM.IMPN ---
Progress Note: A&P Assessment and Plan (1) Positive occult stool blood test: Code(s): R19.5 - Other fecal abnormalities Status: Acute Assessment and Plan: RN reported dark stool 09/24. She is on eliquis which was started 07/2019 due to acute femur fx. I ordered heme occult stool testing which was positive. I have consulted GI for further input. Hb is 10.2 and Hct 32.2. (at presentation, Hb 14.4 and Hct 46.3 - she also had hematuria and was given IV fluids). Await additional recommendations. (2) Recurrent urinary tract infection: Code(s): N39.0 - Urinary tract infection, site not specified Status: Acute Assessment and Plan: She has a hx of resistant proteus mirabilis UTI and was treated with ertapenem initially. Urine culture revealed enterococcus so IV ertapenem was discontinued and IV vancomycin was initiated 09/22. Urine cultures reveal susceptibility to vancomycin, resistance to ampicillin, and intermediate susceptibility to nitrofurantoin. Discussed with urology who recommends 4 days of IV vancomycin and with transition to PO macrobid after she completes 4 days of IV therapy. (3) Discharge planning issues: Code(s): Z02.9 - Encounter for administrative examinations, unspecified Status: Acute Assessment and Plan: She will need COVID-19 testing prior to discharge. COVID-19 testing was negative. (4) Bilateral nephrolithiasis: Code(s): N20.0 - Calculus of kidney Status: Acute Assessment and Plan: CT abd/pelvis revealed 5 mm and 6 mm stones in right kidney as well as a 10 mm nonobstructing stone in the right renal pelvis with mild right hydronephrosis. There are at least 7 stones in left kidney and left renal pelvis measuring up to 14 mm in the renal pelvis with moderate left hydronephrosis. Urology is on board and recommendations are appreciated. She is not having any pain with regards to the stones but due to her recurrent urinary tract infections, she underwent cystoscopy with left retrograde pyelogram and left ureteral stent placement by urology 09/21. Discussed with Dr. Oropeza today and she is not a candidate for lithotripsy. She will need a percutaneous nephrolithotomy. Dr. Oropeza will see if his team will do this or if he will refer her to [facility]. The stent placed will need to be removed within 3 months so this procedure will need to take place prior to stent removal. Appreciate urology input and management per urology. (5) Dysarthria: Code(s): R47.1 - Dysarthria and anarthria Status: Acute Assessment and Plan: 09/22 - The RN reported concerns for mild dysarthria. Her mental status seems to wax and wane with her underlying dementia. She was alert and oriented x3 but concerned about where she was and asking for help. She does have Parkinson's disease and she reports a hx of speech difficulty due to her Parkinson's disease. STAT CT brain was negative for acute hemorrhage or ischemia. NIHSS was 1 for mild dysarthria. I discussed the case with Dr. Madden. She was not a candidate for TPA due to hematuria and recent eliquis treatment. She was treated with ASA. MRI brain revealed no evidence of acute infarction, chronic right occipital lobe infarction, and chronic age-related findings. Plan to continue ASA EC 81mg. LDL is 58. HDL is 40. LFTs are WNL. Will start low dose statin due to hx of CVA for secondary prevention. Appreciate neurology input. Dr. Madden has increased her carbidopa-levodopa. Management per neurology. (6) Gross hematuria: Code(s): R31.0 - Gross hematuria Status: Resolved Assessment and Plan: Resolved. Secondary to bilateral nephrolithiasis. She is s/p cystoscopy with left retrograde pyelogram and left ureteral stent placement by urology 09/21. Eliquis was held initially and resumed 09/23 without recurrence. (7) Parkinson's disease: Code(s): G20 - Parkinson's disease Status: Chronic
[2019-09-26] MEDS: COLLAGENASE OINT 30 GM TUBE 1 APPLIC TOPICAL (10:32)
[2019-09-26] MEDS: ZINC OXIDE 20% OINT 30 GM TUBE 1 APPLIC TOPICAL ×2 (10:33→22:39)
[2019-09-26 12:04] LABS: Glucose Point of Care 125 (65-105)
[2019-09-26] MEDS: ACETAMINOPHEN 325 MG TABLET 650 MG PO ×2 (12:57→22:27)
--- NOTE | 2019-09-26 13:38 | WPDNEUROPN ---
Progress Note: A&P Assessment and Plan (1) Positive occult stool blood test: Code(s): R19.5 - Other fecal abnormalities Status: Acute (2) Discharge planning issues: Code(s): Z02.9 - Encounter for administrative examinations, unspecified Status: Acute (3) Dysarthria: Code(s): R47.1 - Dysarthria and anarthria Status: Acute (4) National Institutes of Health (NIH) Stroke Scale dysarthria score 1, mild to moderate dysarthria, patient slurs at least some words and, at worst, can be understood with some difficulty: Code(s): Z78.9 - Other specified health status Status: Acute (5) Diabetes: Qualifiers: Diabetes mellitus type: type 2 Diabetes mellitus correction insulin use: without intermediate school teacher use Diabetes mellitus complication status: without complication Qualified Code(s): E11.9 - Type 2 diabetes mellitus without complications Code(s): E11.9 - Type 2 diabetes mellitus without complications Status: Chronic (6) Metabolic encephalopathy: Code(s): G93.41 - Metabolic encephalopathy Status: Resolved (7) Hyponatremia: Code(s): E87.1 - Hypo-osmolality and hyponatremia Status: Acute (8) Gross hematuria: Code(s): R31.0 - Gross hematuria Status: Resolved (9) Bilateral kidney stones: Code(s): N20.0 - Calculus of kidney Status: Acute (10) Recurrent urinary tract infection: Code(s): N39.0 - Urinary tract infection, site not specified Status: Acute (11) Constipation: Code(s): K59.00 - Constipation, unspecified Status: Resolved (12) Acute UTI: Code(s): N39.0 - Urinary tract infection, site not specified Status: Acute (13) Ureterolithiasis: Code(s): N20.1 - Calculus of ureter Status: Acute (14) Bilateral nephrolithiasis: Code(s): N20.0 - Calculus of kidney Status: Acute (15) Dehydration: Code(s): E86.0 - Dehydration Status: Resolved (16) Current use of intermediate school teacher anticoagulation: Code(s): Z79.01 - meterman (current) use of anticoagulants Status: Acute (17) DVT prophylaxis: Code(s): Z29.9 - Encounter for prophylactic measures, unspecified Status: Acute (18) COVID-19 ruled out by laboratory testing: Code(s): Z03.818 - Encounter for observation for suspected exposure to other biological agents ruled out Status: Acute (19) Lab test positive for detection of COVID-19 virus: Code(s): U07.1 - COVID-19 Status: Acute (20) Hypothyroidism: Qualifiers: Hypothyroidism type: unspecified Qualified Code(s): E03.9 - Hypothyroidism, unspecified Code(s): E03.9 - Hypothyroidism, unspecified Status: Acute (21) Parkinson's disease: Code(s): G20 - Parkinson's disease Status: Chronic (22) Dehydration: Code(s): E86.0 - Dehydration Status: Resolved (23) Urinary tract infection: Qualifiers: Hematuria presence: without hematuria Urinary tract infection type: acute cystitis Qualified Code(s): N30.00 - Acute cystitis without hematuria Code(s): N39.0 - Urinary tract infection, site not specified Status: Acute (24) Type 2 diabetes mellitus: Code(s): E11.9 - Type 2 diabetes mellitus without complications Status: Acute (25) Abdominal pain: Code(s): R10.9 - Unspecified abdominal pain Status: Acute (26) Nausea: Code(s): R11.0 - Nausea Status: Acute (27) Bipolar disorder: Code(s): F31.9 - Bipolar disorder, unspecified Status: Chronic (28) COVID-19 virus not detected: Status: Acute (29) Schizophrenia: Qualifiers: Schizophrenia type: unspecified Qualified Code(s): F20.9 - Schizophrenia, unspecified Code(s): F20.9 - Schizophrenia, unspecified Status: Chronic (30) Parkinsons: Code(s): G20 - Parkinson's disease Status: Chronic (3
[2019-09-26 14:00] VITALS: BP 120/65; PULSE 110; RESP 19; TEMP 37.1; O2SAT 99
--- NOTE | 2019-09-26 14:45 | PC.NURSE ---
Left message with son to bring more of patient's home medication to the hospital.
[2019-09-26 17:35] LABS: Glucose Point of Care 70 (65-105)
[2019-09-26 22:00] VITALS: BP 97/58; PULSE 80; RESP 22; TEMP 36.1; O2SAT 96
[2019-09-26] MEDS: MELATONIN 5 MG TABLET 10 MG PO (22:34)
[2019-09-26 22:45] LABS: Glucose Point of Care 89 (65-105)
[2019-09-27 06:00] VITALS: BP 150/80; PULSE 94; RESP 20; TEMP 36.1; O2SAT 93
[2019-09-27] MEDS: LEVOTHYROXINE SODIUM 75 MCG TABLET PO (06:16)
[2019-09-27] MEDS: NITROFURANTOIN MONOHYD MACROCR 100 MG CAP PO (06:16)
[2019-09-27 07:30] LABS: Hematocrit 32.5 % (37.0-47.0); Hemoglobin 10.5 g/dL (12.0-15.0); Mean Corpuscular HGB Conc 32.3 g/dl (32-36); Mean Corpuscular Hemoglobin 29.4 pg (26-34); Mean Platelet Volume 8.7 fl (7.4-10.4); Platelet Count Result 357 k/mm3 (150-375); Red Blood Count 3.57 M/mm3 (4.2-5.4); Red Cell Distribution Width 17.9 % (11.5-14.5); White Blood Count 4.3 K/mm3 (4.5-10.0)
[2019-09-27 08:04] LABS: Glucose Point of Care 56 (65-105)
--- NOTE | 2019-09-27 08:23 | WPDGICN ---
Assessment and Plan Assessment and plan (1) Positive occult stool blood test: Code(s): R19.5 - Other fecal abnormalities Status: Acute Assessment and Plan: Occult blood noted in stool. Patient has normal appearing stools and relatively stable hemoglobin during this hospital stay put. I have discussed this with the nursing staff and stool specimen is obtained from bed munson it is noted the patient is active hematuria and easily could be contaminated. Suggest repeating stool Hemoccult. Should she remain positive stool Hemoccult than the leg difficult to be could be performed. Eliquis anticoagulation should be held prior to this procedure . If patient is Hemoccult-positive. Most likely etiology would be her stercoral colitis. Colitis seen on CT scan along with manual disimpaction and Sarmiento lady was anticoagulated would likely be the etiology for occult blood loss. Given her dementia and comorbid diseases proceeding with colonoscopy would be difficult at this time until she is more stable. (2) Gross hematuria: Code(s): R31.0 - Gross hematuria Status: Resolved (3) Bilateral nephrolithiasis: Code(s): N20.0 - Calculus of kidney Status: Acute (4) Acute UTI: Code(s): N39.0 - Urinary tract infection, site not specified Status: Acute (5) Bipolar disorder: Code(s): F31.9 - Bipolar disorder, unspecified Status: Chronic (6) Parkinsons: Code(s): G20 - Parkinson's disease Status: Chronic (7) Dementia: Qualifiers: Dementia type: unspecified type Dementia behavioral disturbance: without behavioral disturbance Qualified Code(s): F03.90 - Unspecified dementia without behavioral disturbance Code(s): F03.90 - Unspecified dementia without behavioral disturbance Status: Chronic (8) Constipation: Code(s): K59.00 - Constipation, unspecified Status: Resolved Assessment and Plan: Patient has a history of constipation was impacted at the time of presentation star Koul colitis noted on CT scan. Patient has been doing well subsequently was manually disimpacted emergency room would recommend stool softener use long-term. Stercoral colitis likely etiology for occult blood in stool. (9) Anticoagulation adequate: Code(s): Z79.01 - rodent exterminator (current) use of anticoagulants Status: Acute Assessment and Plan: Anticoagulation likely contributes to her hematuria and now occult blood in stool. GI Consult Note Consult date/time: 09/27/19 08:23 HPI: Kala Coleman is a 69 year old female seen in evaluation at the request of the hospitalist service. Patient was found to have occult blood in stool. This patient has an underlying history hypertension hypothyroidism admitted the hospital with hematuria. Found to have nephrolithiasis. She is anticoagulated after recent femur fracture. And remains on Eliquis. At the time of admission was found to have CT scan suggesting fecal impaction and stercoral colitis. She currently is a halfway resident with dementia. She suffers with bipolar illness and Parkinson's disease. Since hospitalization her hemoglobin has remained somewhat stable. It is noted to be somewhat decline from previous exam earlier in the year. But only modestly so. At present patient offers no specific complaints. She denies abdominal pain. She apparently is eating adequately. Nursing staff reveals no change in the color of her stools. Appears normal in color. Patient apparently was manually disimpacted in the emergency room prior to admission to the floor. Review of Systems Review of Systems: All systems reviewed & are unremarkable except as noted in HPI and below PMFSH Past Medical History Medical History Acute UTI Anxiety Bilateral kidney stones Bilateral nephrolithiasis Bipolar disorder Cerebrovascular accident Previous right occipital l
[2019-09-27 08:46] LABS: Glucose Point of Care 96 (65-105)
[2019-09-27] MEDS: QUEtiapine FUMARATE 100 MG TABLET 400 MG PO (10:02)
[2019-09-27] MEDS: hydrOXYzine HCL 25 MG TABLET PO (10:03)
[2019-09-27] MEDS: HYDROCORTISONE ACETATE 25 MG SUPPOSITORY RECTAL (10:03)
[2019-09-27] MEDS: RIVASTIGMINE TARTRATE 1.5 MG CAPSULE 3 MG PO (10:03)
[2019-09-27] MEDS: GABAPENTIN 100 MG CAPSULE PO ×2 (10:03→12:02)
[2019-09-27] MEDS: POLYSACCHARIDE IRON COMPLEX 150 MG CAPSULE PO (10:04)
[2019-09-27] MEDS: lamoTRIgine 100 MG TABLET PO (10:04)
[2019-09-27] MEDS: PANTOPRAZOLE 40 MG TABLET PO (10:04)
[2019-09-27] MEDS: ATORVASTATIN 10 MG TABLET PO (10:04)
[2019-09-27] MEDS: CARBIDOPA/LEVODOPA 25/250 MG TABLET 1 TABLET PO ×2 (10:05→12:02)
[2019-09-27] MEDS: ASPIRIN 81 MG ENTERIC TABLET PO (10:05)
[2019-09-27] MEDS: DULoxetine HCL 60 MG CAPSULE.DR PO (10:05)
[2019-09-27] MEDS: COLLAGENASE OINT 30 GM TUBE 1 APPLIC TOPICAL (10:07)
[2019-09-27] MEDS: ZINC OXIDE 20% OINT 30 GM TUBE 1 APPLIC TOPICAL (10:07)
[2019-09-27 10:27] VITALS: BP 127/80; PULSE 88; RESP 23; TEMP 36.9; O2SAT 98
--- NOTE | 2019-09-27 11:39 | PM.DS ---
DS: Admitting Diagnosis Admitting Diagnosis Admitting Diagnosis: Gross hematuria DS: Discharge Diagnosis Discharge Diagnosis (1) Positive occult stool blood test: Code(s): R19.5 - Other fecal abnormalities Status: Acute (2) Recurrent urinary tract infection: Code(s): N39.0 - Urinary tract infection, site not specified Status: Acute (3) Discharge planning issues: Code(s): Z02.9 - Encounter for administrative examinations, unspecified Status: Acute (4) Bilateral nephrolithiasis: Code(s): N20.0 - Calculus of kidney Status: Acute (5) Dysarthria: Code(s): R47.1 - Dysarthria and anarthria Status: Acute (6) Gross hematuria: Code(s): R31.0 - Gross hematuria Status: Resolved (7) Parkinson's disease: Code(s): G20 - Parkinson's disease Status: Chronic (8) Essential hypertension: Code(s): I10 - Essential (primary) hypertension Status: Chronic (9) Hypothyroidism: Qualifiers: Hypothyroidism type: unspecified Qualified Code(s): E03.9 - Hypothyroidism, unspecified Code(s): E03.9 - Hypothyroidism, unspecified Status: Acute (10) Dehydration: Code(s): E86.0 - Dehydration Status: Resolved (11) Current use of correction anticoagulation: Code(s): Z79.01 - terminologist (current) use of anticoagulants Status: Acute (12) Constipation: Code(s): K59.00 - Constipation, unspecified Status: Resolved (13) Dementia: Qualifiers: Dementia behavioral disturbance: without behavioral disturbance Dementia type: unspecified type Qualified Code(s): F03.90 - Unspecified dementia without behavioral disturbance Code(s): F03.90 - Unspecified dementia without behavioral disturbance Status: Chronic (14) Bipolar disorder: Code(s): F31.9 - Bipolar disorder, unspecified Status: Chronic DS: Summary Hospital Course Reason for hospitalization: Hematuria Hospital Course: Mrs. Coleman is a 69 y.o. female with PMH significant for recurrent UTIs, hypertension, hypothyroidism, dementia, Parkinson's disease, bipolar disorder, hx of CVA, and schizophrenia who presented to the emergency department via EMS from [facility] for the evaluation of hematuria. She complained of lower abdominal discomfort to staff and hematuria was noted. She also reported constipation. Initial workup in the emergency department revealed WBC 9,100, Hb 11.8, Hct 37, platelets 452, sodium 130, potassium 4.0, chloride 92, CO2 32, BUN 22, Cr 0.8, glucose 94, and UA with blood, 2+ protein, trace ketones, trace leukocyte esterase, WBC, and WBC clumps. CT abd/pelvis revealed stercoral colitis, 14 mm obstructive stone in the left renal pelvis with moderate left hydronephrosis, multiple nonobstructing left kidney stones, mild right hydronephrosis and nonobstructing right kidney stones. She was manually disimpacted in the emergency department and received an enema. She admitted to the hospitalist service and urology was consulted. She was treated with empiric ertapenem due to hx of resistant proteus UTI. Eliquis was held in anticipation of cystoscopy. She underwent cystoscopy with left retrograde stent placement 09/22/19. Urine culture revealed enterococcus so IV ertapenem was discontinued and IV vancomycin was initiated 09/22. Urine cultures reveal susceptibility to vancomycin, resistance to ampicillin, and intermediate susceptibility to nitrofurantoin. Urology recommended 4 days of IV vancomycin and with transition to PO macrobid at discharge. Per urology, she was not a candidate for lithotripsy and will need a percutaneous nephrolithotomy. Dr. Oropeza will see if his team will do this or if he will refer her to [facility]. The stent placed will need to be removed within 3 months so this procedure will need to take place prior to stent removal. The nurse called with concerns regarding her speech. Her mentation fl
--- NOTE | 2019-09-27 11:43 | WPDNEUROPN ---
Progress Note: A&P Assessment and Plan (1) Anticoagulation adequate: Code(s): Z79.01 - watermelon inspector (current) use of anticoagulants Status: Acute (2) Positive occult stool blood test: Code(s): R19.5 - Other fecal abnormalities Status: Acute (3) Discharge planning issues: Code(s): Z02.9 - Encounter for administrative examinations, unspecified Status: Acute (4) Dysarthria: Code(s): R47.1 - Dysarthria and anarthria Status: Acute (5) National Institutes of Health (NIH) Stroke Scale dysarthria score 1, mild to moderate dysarthria, patient slurs at least some words and, at worst, can be understood with some difficulty: Code(s): Z78.9 - Other specified health status Status: Acute (6) Diabetes: Qualifiers: Diabetes mellitus type: type 2 Diabetes mellitus long term acute care registered nurse insulin use: without residential use Diabetes mellitus complication status: without complication Qualified Code(s): E11.9 - Type 2 diabetes mellitus without complications Code(s): E11.9 - Type 2 diabetes mellitus without complications Status: Chronic (7) Metabolic encephalopathy: Code(s): G93.41 - Metabolic encephalopathy Status: Resolved (8) Hyponatremia: Code(s): E87.1 - Hypo-osmolality and hyponatremia Status: Acute (9) Gross hematuria: Code(s): R31.0 - Gross hematuria Status: Resolved (10) Bilateral kidney stones: Code(s): N20.0 - Calculus of kidney Status: Acute (11) Recurrent urinary tract infection: Code(s): N39.0 - Urinary tract infection, site not specified Status: Acute (12) Constipation: Code(s): K59.00 - Constipation, unspecified Status: Resolved (13) Acute UTI: Code(s): N39.0 - Urinary tract infection, site not specified Status: Acute (14) Ureterolithiasis: Code(s): N20.1 - Calculus of ureter Status: Acute (15) Bilateral nephrolithiasis: Code(s): N20.0 - Calculus of kidney Status: Acute (16) Dehydration: Code(s): E86.0 - Dehydration Status: Resolved (17) Current use of long term acute care registered nurse anticoagulation: Code(s): Z79.01 - watermelon inspector (current) use of anticoagulants Status: Acute (18) COVID-19 ruled out by laboratory testing: Code(s): Z03.818 - Encounter for observation for suspected exposure to other biological agents ruled out Status: Acute (19) DVT prophylaxis: Code(s): Z29.9 - Encounter for prophylactic measures, unspecified Status: Acute (20) Lab test positive for detection of COVID-19 virus: Code(s): U07.1 - COVID-19 Status: Acute (21) Hypothyroidism: Qualifiers: Hypothyroidism type: unspecified Qualified Code(s): E03.9 - Hypothyroidism, unspecified Code(s): E03.9 - Hypothyroidism, unspecified Status: Acute (22) Parkinson's disease: Code(s): G20 - Parkinson's disease Status: Chronic (23) Dehydration: Code(s): E86.0 - Dehydration Status: Resolved (24) Urinary tract infection: Qualifiers: Hematuria presence: without hematuria Urinary tract infection type: acute cystitis Qualified Code(s): N30.00 - Acute cystitis without hematuria Code(s): N39.0 - Urinary tract infection, site not specified Status: Acute (25) Type 2 diabetes mellitus: Code(s): E11.9 - Type 2 diabetes mellitus without complications Status: Acute (26) Abdominal pain: Code(s): R10.9 - Unspecified abdominal pain Status: Acute (27) Nausea: Code(s): R11.0 - Nausea Status: Acute (28) Bipolar disorder: Code(s): F31.9 - Bipolar disorder, unspecified Status: Chronic (29) COVID-19 virus not detected: Status: Acute (30) Schizophrenia: Qualifiers: Schizophrenia type: unspecified Qualified Code(s): F20.9 - Schizophrenia, unspecified Code(s): F20.9 - Schizophrenia, u
[2019-09-27 12:24] LABS: Glucose Point of Care 106 (65-105)
== END 2019-09-27 14:45 | DRG 660 ==
LOC: ANHED 16:48 → ANH2MED 17:20
PROVIDERS: Physician Assistant; Urology; Admitting Provider Family Medicine; Emergency Provider Emergency Medicine; PCP Family Medicine; Visit Provider Internal Medicine
PROC: 0T778DZ Dilation of Left Ureter with Intraluminal Device, Via Natural or Artificial Opening Endoscopic (ICD-10-PCS; CPT 52352; principal; 2019-09-22 13:00)
DX: N13.6 Pyonephrosis (principal); Z16.11 Resistance to penicillins; R31.0 Gross hematuria; B95.2 Enterococcus as the cause of diseases classified elsewhere; G20 Parkinson's disease; F02.80 Dementia in other diseases classified elsewhere, unspecified severity, without behavioral disturbance, psychotic disturbance, mood disturbance, and anxiety; R47.1 Dysarthria and anarthria; Z11.59 Encounter for screening for other viral diseases; E86.0 Dehydration; K59.00 Constipation, unspecified; R19.5 Other fecal abnormalities; E11.9 Type 2 diabetes mellitus without complications; F31.9 Bipolar disorder, unspecified; F41.9 Anxiety disorder, unspecified; F20.9 Schizophrenia, unspecified; I10 Essential (primary) hypertension; E03.9 Hypothyroidism, unspecified; M19.90 Unspecified osteoarthritis, unspecified site; Z66 Do not resuscitate; Z74.01 Bed confinement status; Z96.653 Presence of artificial knee joint, bilateral; Z79.01 Long term (current) use of anticoagulants; Z79.899 Other long term (current) drug therapy; Z86.73 Personal history of transient ischemic attack (TIA), and cerebral infarction without residual deficits; Z87.440 Personal history of urinary (tract) infections; Z87.81 Personal history of (healed) traumatic fracture; Z88.0 Allergy status to penicillin; Z88.5 Allergy status to narcotic agent
CPT/HCPCS: 36415; 51701; 70450; 70553; 74018; 74177; 74420; 80048; 80053; 80061; 80202; 81001; 82274; 83735; 85025; 85027; 85055; 85610; 85730; 87077; 87086; 87088; 87186; 87635; 92610; 96361; 96365; 96367; 99285; A9270; A9577; C1758; C1769; C2617; C9803; G0378; J0696; J1100; J1335; J2405; J2704; J3370; J7030; J7120; Q9966; Q9967; U0003

== ENCOUNTER 2019-10-23 00:38 | Inpatient (IN) | payer MEDICARE, MEDICAID, SELFPAY ==
[2019-10-23] VITALS (26 sets, daily range): BP systolic 68–117; BP diastolic 37–69; PULSE 58–90; RESP 16–21; TEMP 36.6–38.1; O2SAT 91–100; BMI 25.9
--- NOTE | ~2019-10-23 | XR_ITS ---
EXAMINATION: XR chest 1V portable DATE: 10/23/2019 01:34 INDICATION: Transient alteration of awareness TECHNIQUE: frontal view of the chest was obtained. COMPARISON: Chest radiograph and CT dated 08/22/2019 FINDINGS: Chronic elevation of the right hemidiaphragm. Small calcified nodule at the left lung base consistent with old granulomatous disease. No pulmonary edema, pleural effusion or pneumothorax. The cardiomedi astinal silhouette is normal. Moderate thoracic spondylosis. IMPRESSION: 1. Chronic elevation of the right hemidiaphragm. No acute cardiopulmonary disease. Reviewed, dictated and finalized at location A. IMPRESSION: 1. Chronic elevation of the right hemidiaphragm. No acute cardiopulmonary disea se.
--- NOTE | ~2019-10-23 | US_ITS ---
EXAMINATION: US renal BI DATE: 10/23/2019 12:28 INDICATION: Hydronephrosis. Hematuria. TECHNIQUE: Multiple ultrasound grayscale images of the kidneys were obtained. COMPARISON: CT abdomen and pelvis 09/21/2019 FINDINGS: The right kidney measures 11.3 x 4.8 x 6.8 cm. The left kidney measures 11.4 x 5.8 x 6.0 b cm. The ki dneys demonstrate normal parenchymal echogenicity. There is mild left hydronephrosis. There is a left internal ureteral stent. The bladder is normal. IMPRESSION: 1. Mild left hydronephrosis with internal ureteral stent. Reviewed, dictated and finalized at location B.
--- NOTE | ~2019-10-23 | CT_ITS ---
EXAMINATION: CT brain wo con DATE: 10/23/2019 01:29 INDICATION: Altered mental status with decreased responsiveness and fever TECHNIQUE: Computed tomography (CT) of the head was performed without intravenous contrast. Sagittal and coronal reconstructions were performed. The mA was adjusted according to patient size. Iterative reconstruction technique was employed. The dose-length product was 681.00 mGy-cm. COMPARISON: head CT dated 09/23/2019 and MRI dated 09/24/2019 FINDINGS: Small region of encephalomalacia in the right occipital lobe consistent with chronic infarct. No acut e intracranial hemorrhage, acute infarction or abnormal extra axial fluid collection. There is mild s cattered white matter hypoattenuation consistent with chronic small vessel ischemic disease. Symmetri c prominence of the sulci and subarachnoid spaces overlying the convexities consistent with mild age- appropriate diffuse cerebral volume loss. Ventricles are normal and symmetric. No mass/mass effect. M ild mucosal thickening the bilateral ethmoid sinuses. The orbits and mastoid air cells are normal. IMPRESSION: 1. No acute intracranial process. 2. Chronic right occipital lobe infarction. 3. Age-related changes including mild diffuse spondylosis and mild scattered white matter hypoattenua tion consistent with chronic small vessel schema disease. Reviewed, dictated and finalized at location A. IMPRESSION: 1. No acute intracranial process. 2. Chronic right occipital lobe infarction. 3. Age-related changes including mild diffuse spondylosis and mild scattered wh ite matter hypoattenuation consistent with chronic small vessel schema disease.
--- NOTE | 2019-10-23 00:43 | ED.AMS ---
HPI - Altered Mental Status General Chief Complaint: Fever Stated Complaint: fever History of Present Illness HPI narrative: Brought in from half-way for fever and altered mental status. She was reportedly at her baseline this afternoon. Since that time she was measured to have a temperature as high as 104 and she became minimally responsive. When EMS arrived they noted that she was hypotensive with SBP in the 70s. They could only get her to open eyes, but would not speak. For me she will only open eyes to painful stimuli. Once awake she told me no when I asked if she was in pain. She did not answer any other questions. She has an advanced directive with DNR and comfort focused care selected. Related Data Home Medications Medication Instructions Recorded Confirmed Vraylar 1.5 mg PO DAILY 03/10/19 09/21/19 acetaminophen 650 mg PO Q4H PRN 03/10/19 09/21/19 benzonatate 100 - 200 mg PO Q8H PRN 03/10/19 09/21/19 bisacodyl 10 mg GA DAILY PRN 03/10/19 09/21/19 docusate sodium [Colace] 100 mg PO BID 03/10/19 09/21/19 duloxetine 60 mg PO DAILY 03/10/19 09/21/19 gabapentin 100 mg PO TID 03/10/19 09/21/19 hydroxyzine HCl 25 mg PO DAILY 03/10/19 09/21/19 lactulose 30 ml PO DAILY PRN 03/10/19 09/21/19 lamotrigine 100 mg PO BID 03/10/19 09/21/19 levothyroxine 75 mcg PO DAILY 03/10/19 09/21/19 melatonin 10 mg PO HS 03/10/19 09/21/19 nystatin [Nyamyc] 1 applic TOPICAL Q12H PRN 03/10/19 09/21/19 ondansetron HCl [Zofran] 4 mg PO Q6H PRN 03/10/19 09/21/19 potassium chloride 20 meq PO DAILY 03/10/19 09/21/19 quetiapine 400 mg PO DAILY 03/10/19 09/21/19 rivastigmine tartrate 3 mg PO BID 03/10/19 09/21/19 sennosides-docusate sodium 2 tab-cap PO BID 03/10/19 09/21/19 sodium chloride [Saline Nasal] 2 spray INTRANASAL TID PRN 03/10/19 09/21/19 Eliquis 2.5 mg PO BID 08/22/19 09/21/19 furosemide [Lasix] 20 mg PO DAILY 08/22/19 09/21/19 spironolactone 25 mg PO DAILY 08/22/19 09/21/19 tramadol 50 mg PO TID PRN 08/22/19 09/21/19 Calcium 600 with Vitamin D3 1 tablet PO TID 09/21/19 09/21/19 Combivent Respimat 2 puff INHALATION QID 09/21/19 09/21/19 Orajel 3X Mouth Sores 1 ea MUCOUS MEMBRANE Q4H PRN 09/21/19 09/21/19 Santyl 1 applic TOPICAL DAILY 09/21/19 09/21/19 benzocaine-menthol 1 spray TOPICAL DAILY PRN 09/21/19 09/21/19 lorazepam [Ativan] 1 mg PO BID PRN 09/21/19 09/21/19 multivitamin 1 tablet PO DAILY 09/21/19 09/21/19 polysaccharide iron complex 150 mg PO BID 09/21/19 09/21/19 [Poly-Iron] zinc oxide 1 applic TOPICAL Q12H 09/21/19 09/21/19 Allergies Allergy/AdvReac Type Severity Reaction Status Date / Time morphine Allergy Intermediate HALLUCINATI Verified 09/21/19 17:21 ONS Penicillins Allergy Unknown Unknown Verified 09/21/19 17:21 oxycodone [From Percocet] Allergy Unknown Verified 09/21/19 17:21 Review of Systems Review of Systems: ROS unobtainable: Yes unobtainable due to medical condition [facility] Past Medical History Medical History Acute UTI Anxiety Bilateral kidney stones Bilateral nephrolithiasis Bipolar disorder Cerebrovascular accident Previous right occipital lobe infarct. Chronic constipation Constipation Current use of fci anticoagulation Patient is not certain as to why she is on apixaban. Dehydration Dementia Diabetes Endometriosis Essential hypertension Gross hematuria Hyponatremia Hypothyroidism TSH on 08/22/2019 was 1.020. Metabolic encephalopathy Osteoarthritis Parkinson's disease With pseudobulbar affect. Recurrent urinary tract infection With history of multidrug resistant Proteus mirabilis. Recurrent urinary tract infection Schizophrenia Poorly documented in her medical history. Type 2 diabetes mellitus Poorly documented, and I see that she is on no medication for such. Hemoglobin A1c was 5.1% in September 2017. Ureterolithiasis Surgical History Surgical History History of bowel rese
--- NOTE | 2019-10-23 00:44 | ECG_ITS ---
Measurements Intervals [place] Rate: 72 P: 96 CT: 169 QRS: 6 QRSD: 100 T: 4 QT: 406 QTc: 446 Interpretive Statements SINUS RHYTHM LOW QRS VOLTAGE IN PRECORDIAL LEADS CONSIDER INFERIOR INFARCT, AGE INDETERMINATE BORDERLINE T WAVE ABNORMALITY- ANTEROLATERAL LEADS ABNORMAL ECG Electronically Signed On 10-23-2019 15:03:21 CDT by Juwan Marie D.O.
[2019-10-23] MEDS: SODIUM CHLORIDE 0.9% IV 1,000 ML 999 ML IV CONT ×3 (00:55→03:39)
[2019-10-23 01:00] LABS: Basophils Percent Auto 0.2 % (0.2-1.2); Hematocrit 27.9 % (37.0-47.0); Hemoglobin 9.1 g/dL (12.0-15.0); Immature Granulocyte Absolute 0.03 K/mm3 (0.00-0.031); Immature Granulocyte Percent A 0.3 % (0-0.5); Lymphocytes Absolute Auto 1.31 K/mm3 (0.9-3.2); Mean Corpuscular HGB Conc 32.6 g/dl (32-36); Mean Corpuscular Hemoglobin 29.8 pg (26-34); Mean Corpuscular Volume 91.5 fl (80-100); Mean Platelet Volume 9.6 fl (7.4-10.4); Monocytes Absolute Auto 0.9 K/mm3 (0.1-0.6); Monocytes Percent Auto 10.3 % (2.6-8.5); Neutrophils Absolute Auto 6.5 K/mm3 (1.3-6.7); Neutrophils Percent Auto 74.2 % (45.5-73.1); Platelet Count Result 320 k/mm3 (150-375); Red Blood Count 3.05 M/mm3 (4.2-5.4); Red Cell Distribution Width 17.5 % (11.5-14.5); White Blood Count 8.7 K/mm3 (4.5-10.0)
[2019-10-23 01:09] LABS: INR 1.4; Prothrombin Time 17.2 Seconds (11.1-14.7)
[2019-10-23 01:10] LABS: Alveolar/Arterial O2 Gradient 64.2 mmHg; Base Excess ABG 4.4 mEq/l (+/-2.0); Fractional Inspired Oxygen 28 %; HCO3 ABG 28.9 mEq/l (22.0-26.0); Oxygen Content ABG 12.9 %vol (16.0-22.0); Oxygen Saturation ABG 96.7 % (95.0-100.0); Oxyhemoglobin 95.4 % THb (90.0-100.0); PCO2 ABG 42.9 mmHg (35.0-45.0); PO2 ABG 84.8 mmHg (80.0-100.0); PO2 FiO2 Ratio Arterial Blood 3.03 %; Total Hemoglobin 9.5 g/dL (12.0-18.0); pH ABG 7.446 (7.350-7.450)
[2019-10-23 01:10] LABS: Partial Thromboplastin Time 35.5 SECONDS (22.3-36.8)
[2019-10-23 01:11] LABS: Device NASAL CANNULA; Modified Allen's Test Pass; Site Drawn RIGHT BRACHIAL
[2019-10-23 01:15] LABS: Add Urine Microscopic? YES; Appearance Urine Cloudy (Clear); Bacteria Urine Trace /hpf; Bilirubin Urine Negative (Negative); Blood Urine 3+ (Negative); Glucose Urine UA Negative (Negative); Ketones Urine Trace mg/dL (Negative); Leukocyte Esterase Ur 2+ LEU/UL (Negative); Mucus Urine Few /lpf; Nitrate Urine Positive (Negative); Protein Urine 2+ mg/dL (Negative); RBC Urine >75 /hpf (0-2); Specific Grav Ur 1.023 (1.001-1.035); Squamous Epithelial Cell Urine Many /hpf (Few); Urobilinogen Urine Negative mg/dL (<2.0); WBC Urine >75 /hpf
[2019-10-23 01:15] LABS: Lactic Acid Reflex 0.6 mmol/L (0.7-2.1)
[2019-10-23 01:17] LABS: Color Urine Brown (Yellow)
--- NOTE | 2019-10-23 01:24 | PC.NURSE ---
0114---Patients son called and updated on patient status
[2019-10-23 01:30] LABS: Albumin Level 2.2 g/dL (3.5-5.1); Alkaline Phosphatase 96 U/L (38-126); Anion Gap 3 mmol/L (8-16); Aspartate Amino Transferase 18 U/L (14-36); Bilirubin,Total 0.3 mg/dL (0.2-1.3); Blood Urea Nitrogen 26 mg/dL (7-17); CRP 19.5 mg/dL (<1.0); Calcium 7.5 mg/dL (8.4-10.2); Carbon Dioxide 30 mmol/L (22-30); Chloride 101 mmol/L (98-107); Estimated CRCL calculation 90 ml/min; Estimated Glomerular Filt Rate > 60; Glucose 109 mg/dL (65-105); Potassium 3.8 mmol/L (3.4-5.0); Sodium 134 mmol/L (137-145)
[2019-10-23 01:31] LABS: Alanine Aminotransferase < 4 U/L (4-35)
[2019-10-23] MEDS: LACTATED RINGERS 1,000 ML 125 ML IV CONT ×3 (05:17→21:05)
--- NOTE | 2019-10-23 05:42 | ADMGEN ---
This patient, Kala Coleman, was admitted to [facility] Surg Room 322-01. Patient/family oriented to hospital policies and general routines including ID bracelet, bed and alarms, visiting hours, pain management, procedures, bathroom and other care routines, personal items, smoking policy, room service/diet, and visiting hours. Valuables list has been completed. Information on how to activate the Rapid Response Team has been discussed. Patient/Family are encouraged to report perceived risks to care and to ask questions if they do not understand what they are told or what they should do.
[2019-10-23 09:07] LABS: Hemoglobin A1C 4.4 % (<5.7)
[2019-10-23] MEDS: ALBUTEROL SULFATE (*SP) AEROSOL 1 PUFF 2 PUFF INHALATION ×3 (09:32→20:59)
--- NOTE | 2019-10-23 09:50 | PM.IMHP ---
H&P: HPI History of Present Illness Date/Time: 10/23/19 09:50 Chief complaint: Septic shock, UTI Narrative: Kala Coleman is a 69 year old female with history of hypertension, hypothyroidism, recurrent urinary tract infections requiring multiple hospitalizations recently and known renal stones who presented to the emergency department just after midnight today (10/22) via EMS from [facility] for evaluation of AMS. Patient is A&Ox4 for me this morning, although is some what confused still. History is obtained from EMR, patient, and JOHNIE Krause at [facility]. Patient was A&Ox4 yesterday evening per [place] staff, but then began to be more confused and lethargic, eventually becoming minimally responsive. Patient tells me she is here because she fell, although Nelida notes she has not had a fall in several months ago; Nelida notes she is primarily bed bound. Patient was noted to have a temp of 104 at [place] and received tylenol with minimal help; temp of 100.4 here in the hospital. Per EMR, EMS noted systolic BP in 70s upon arrival to intermediate. This has improved to 110s this morning after IVF. She tells me she sometimes notes blood on toilet tissue when she wipes after urinating; she notes dysuria at times as well; otherwise no other urinary complaints. Nelida states staff have not noted any hematuria at . She is chronically on 2-3 L O2 at per [facility]. She also notes periumbilical pain occasionally while at [place] that has been going on for weeks, but no pain at the moment. Otherwise no other complaints. Denies current subjective f/c/s, myalgias/arthralgias, headaches, dizziness, lightheadedness, cp/palpitations, current sob/cough, n/v/d/c, current abd pain, dysuria. While in the ED, UA supsicous for UTI with brown/cloudy urine, 2+ protein, 3+ blood, >75 RBC, > 75 WBC, positive nitrate, 2+ leuk, although many squam cells, and trace bacteria. Patient met Sirs criteria for sepsis/shock with sys pressures as low as 68, temp of 104 at [place] and 100.4 here, and tachypnea. Lactic acid normal. Pressures have improved with aggressive IVF. Patient is DNR with comfort care measures. Of note, to her knowledge, Nelida states that patient has not follow up with Urology since last admission in 09/2019; left ureteral stent placed at that time Review of Systems Review of Systems: All systems reviewed & are unremarkable except as noted in HPI and below (limited due to mental status; see above) [facility] Past Medical History Medical History Acute UTI Anxiety Bilateral kidney stones Bilateral nephrolithiasis Bipolar disorder Cerebrovascular accident Previous right occipital lobe infarct. Chronic constipation Constipation Current use of custodial anticoagulation Patient is not certain as to why she is on apixaban. Dehydration Dementia Diabetes Endometriosis Essential hypertension Gross hematuria Hyponatremia Hypothyroidism TSH on 08/22/2019 was 1.020. Metabolic encephalopathy Osteoarthritis Parkinson's disease With pseudobulbar affect. Recurrent urinary tract infection With history of multidrug resistant Proteus mirabilis. Recurrent urinary tract infection Schizophrenia Poorly documented in her medical history. Type 2 diabetes mellitus Poorly documented, and I see that she is on no medication for such. Hemoglobin A1c was 5.1% in September 2017. Ureterolithiasis Surgical History Surgical History History of bowel resection (~2001) 5-6 inches of bowel resected to include the appendix. History of carpal tunnel release Left. History of cholecystectomy History of dilation and curettage History of salpingo-oophorectomy History of total bilateral knee replacement Family History Family History Mother Diabetes mellitus Breast cancer Father Lung cancer Social H
[2019-10-23] MEDS: ZINC OXIDE 20% OINT 30 GM TUBE 1 APPLIC TOPICAL ×2 (09:52→20:34)
[2019-10-23] MEDS: APIXABAN 2.5 MG TABLET PO (09:53)
[2019-10-23] MEDS: ASPIRIN 81 MG ENTERIC TABLET PO (09:53)
[2019-10-23] MEDS: ATORVASTATIN 10 MG TABLET PO (09:53)
[2019-10-23] MEDS: COLLAGENASE OINT 30 GM TUBE 1 APPLIC TOPICAL (09:54)
[2019-10-23] MEDS: DOCUSATE SODIUM 100 MG CAPSULE PO ×2 (09:54→17:25)
[2019-10-23] MEDS: SENNA/DOCUSATE SODIUM TABLET 2 TAB PO ×2 (09:54→17:24)
[2019-10-23] MEDS: CARBIDOPA/LEVODOPA 25/250 MG TABLET 1 TABLET PO ×4 (09:54→20:34)
[2019-10-23] MEDS: LEVOTHYROXINE SODIUM 75 MCG TABLET PO (09:55)
[2019-10-23] MEDS: lamoTRIgine 100 MG TABLET PO ×2 (09:55→20:27)
[2019-10-23] MEDS: MULTIVITAMINS THERAPEUTIC TAB (*BKC) 1 TABLET PO (09:55)
[2019-10-23] MEDS: PANTOPRAZOLE 40 MG TABLET PO (09:55)
[2019-10-23] MEDS: DULoxetine HCL 60 MG CAPSULE.DR PO (09:55)
[2019-10-23] MEDS: POTASSIUM CHLORIDE 10 MEQ TABLET.ER 20 MEQ PO (09:56)
[2019-10-23] MEDS: RIVASTIGMINE TARTRATE 1.5 MG CAPSULE 3 MG PO ×2 (09:56→20:27)
[2019-10-23] MEDS: QUEtiapine FUMARATE 100 MG TABLET 400 MG PO (09:56)
[2019-10-23] MEDS: hydrOXYzine HCL 25 MG TABLET PO (09:57)
[2019-10-23 10:20] LABS: Glucose Point of Care 73 (65-105)
[2019-10-23 10:49] LABS: Basophils Absolute Auto 0.1 K/mm3 (0.0-0.1); Basophils Percent Auto 0.6 % (0.2-1.2); Eosinophils Percent Auto 0.3 % (0-4.4); Hematocrit 32.5 % (37.0-47.0); Hemoglobin 10.1 g/dL (12.0-15.0); Immature Granulocyte Absolute 0.05 K/mm3 (0.00-0.031); Immature Granulocyte Percent A 0.4 % (0-0.5); Lymphocytes Absolute Auto 1.32 K/mm3 (0.9-3.2); Lymphocytes Percent Auto 11.8 % (18.3-44.2); Mean Corpuscular HGB Conc 31.1 g/dl (32-36); Mean Corpuscular Hemoglobin 30.1 pg (26-34); Monocytes Absolute Auto 0.9 K/mm3 (0.1-0.6); Monocytes Percent Auto 8.2 % (2.6-8.5); Neutrophils Absolute Auto 8.8 K/mm3 (1.3-6.7); Neutrophils Percent Auto 78.7 % (45.5-73.1); Platelet Count Result 174 k/mm3 (150-375); Red Blood Count 3.35 M/mm3 (4.2-5.4); White Blood Count 11.2 K/mm3 (4.5-10.0)
[2019-10-23] MEDS: ERTAPENEM 1 GM/NS 50 ML 1 GM/50 ML BAG IVPB (11:35)
[2019-10-23 13:06] LABS: Glucose Point of Care 102 (65-105)
--- NOTE | 2019-10-23 14:18 | WPDURCON ---
Assessment and Plan Assessment and plan (1) Gross hematuria: Code(s): R31.0 - Gross hematuria Status: Resolved Assessment and Plan: D/t Infection and ureteral stent (which is an expected finding). (2) UTI (urinary tract infection): Qualifiers: Hematuria presence: with hematuria Urinary tract infection type: site unspecified Qualified Code(s): N39.0 - Urinary tract infection, site not specified; R31.9 - Hematuria, unspecified Code(s): N39.0 - Urinary tract infection, site not specified Status: Acute Assessment and Plan: Continue IV antibiotics, tailor to culture results. (3) Ureterolithiasis: Code(s): N20.1 - Calculus of ureter Status: Acute Assessment and Plan: Dr. Oropeza recommends she see Urology at [facility] [place] to be evaluated for a Left PCNL d/t the size of her stone as this procedure is not done here. Her stent is in place and draining. She may need to be transferred for further care immediately, as she did not follow up as recommended last time she was hospitalized and is now here for a second occurance. NO further evaluation needed. (4) Bilateral nephrolithiasis: Code(s): N20.0 - Calculus of kidney Status: Acute Assessment and Plan: Would recommend further evaluation at [facility]. (5) Hydronephrosis: Code(s): N13.30 - Unspecified hydronephrosis Status: Acute Assessment and Plan: Previously seen right hydronephrosis has resolved, however mild left hydronephrosis is noted, likely d/t recent UTI. No need for stent exchange at this time, creatinine is not elevated. Urology Consult Note HPI Date Seen: 10/23/19 Requesting Physician: Marco Mayfield PA-C Primary Care Provider: Concepción Hinton MD Consult Narrative Narrative: Kala Coleman is a 69 year old female who presented to the ER today for fever of 104, unresponsiveness and hypotension that developed suddenly at the [place]. Patient is A&O x 3, but does state she has seen mild gross hematuria in the urine intermittently over the past few weeks. She denies nausea or vomiting, abdominal pain, flank pain, dysuria, frequency or urgency. She is s/p cystoscopy left ureteroscopy with stent placement and left retrograde pyelogram on 09/22/[address] Oropeza d/t a 14mm obstructive UPJ stone in the left kidney. She was hospitalized during that surgery d/t a UTI and was treated and instructed to follow up at [facility] for a PCNL as those are not done at this facility. Her CT on 09/21/2019 shows a 14mm obstructing left UPJ stone, multiple bilateral renal stones that are non obstructive and mild right hydronephrosis. Her KUB doesn't definitively show her stones. She had a KHANG done today showing mild left hydronephrosis with a left ureteral stent in place. SHe has a WBC of 11.2, creatinine is 0.60 and UA is positive for a UTI, urine and blood cultures are pending. Review of Systems Cardiovascular: Cardiovascular: Denies chest pain Respiratory: Respiratory: Reports no additional respiratory complaints Gastrointestinal: Gastrointestinal: Denies abdominal pain, Denies nausea and Denies vomiting Genitourinary: Genitourinary: Reports hematuria, Denies dysuria, Denies pelvic pain, Denies flank pain, Denies urinary incontinence, Denies urinary hesitancy and Denies urinary urgency [facility] Past Medical History Medical History Acute UTI Anxiety Bilateral kidney stones Bilateral nephrolithiasis Bipolar disorder Cerebrovascular accident Previous right occipital lobe infarct. Chronic constipation Constipation Current use of chcf anticoagulation Patient is not certain as to why she is on apixaban. Dehydration Dementia Diabetes Endometriosis Essential hypertension Gross hematuria Hyponatremia Hypothyroidism TSH on 08/22/2019 was 1.020. Metabolic encephalopathy Osteoarthritis Parkinson's disease With pseudobulbar affect. R
--- NOTE | 2019-10-23 15:09 | PCRCNOTE ---
Window of time for administration has passed. See next scheduled administration.
[2019-10-23 17:31] LABS: Glucose Point of Care 94 (65-105)
[2019-10-23 20:23] LABS: Glucose Point of Care 112 (65-105)
[2019-10-23] MEDS: MELATONIN 5 MG TABLET 10 MG PO (20:28)
[2019-10-23] MEDS: ACETAMINOPHEN 325 MG TABLET 650 MG PO (20:28)
[2019-10-23] MEDS: MICONAZOLE NITRATE 2% CREAM 30 GM TUBE 1 APPLIC TOPICAL (20:31)
[2019-10-24] VITALS (9 sets, daily range): BP systolic 88–116; BP diastolic 48–56; PULSE 73–82; RESP 18; TEMP 36.6–37.1; O2SAT 94–98
[2019-10-24] MEDS: ACETAMINOPHEN 325 MG TABLET 650 MG PO ×4 (01:14→23:46)
[2019-10-24] MEDS: LEVOTHYROXINE SODIUM 75 MCG TABLET PO (05:54)
[2019-10-24] MEDS: LACTATED RINGERS 1,000 ML 125 ML IV CONT (05:54)
[2019-10-24 07:03] LABS: Basophils Percent Auto 0.4 % (0.2-1.2); Eosinophils Absolute Auto 0.1 K/mm3 (0-0.3); Eosinophils Percent Auto 2.1 % (0-4.4); Hematocrit 26.1 % (37.0-47.0); Hemoglobin 8.4 g/dL (12.0-15.0); Immature Granulocyte Absolute 0.03 K/mm3 (0.00-0.031); Immature Granulocyte Percent A 0.4 % (0-0.5); Lymphocytes Absolute Auto 1.86 K/mm3 (0.9-3.2); Lymphocytes Percent Auto 27.3 % (18.3-44.2); Mean Corpuscular HGB Conc 32.2 g/dl (32-36); Mean Corpuscular Hemoglobin 29.3 pg (26-34); Mean Corpuscular Volume 90.9 fl (80-100); Mean Platelet Volume 9.2 fl (7.4-10.4); Monocytes Absolute Auto 0.7 K/mm3 (0.1-0.6); Monocytes Percent Auto 10.4 % (2.6-8.5); Neutrophils Percent Auto 59.4 % (45.5-73.1); Platelet Count Result 311 k/mm3 (150-375); Red Blood Count 2.87 M/mm3 (4.2-5.4); Red Cell Distribution Width 17.3 % (11.5-14.5); White Blood Count 6.8 K/mm3 (4.5-10.0)
[2019-10-24 07:31] LABS: Albumin Level 2.2 g/dL (3.5-5.1); Alkaline Phosphatase 97 U/L (38-126); Anion Gap 2 mmol/L (8-16); Aspartate Amino Transferase 14 U/L (14-36); Bilirubin,Total 0.1 mg/dL (0.2-1.3); Blood Urea Nitrogen 17 mg/dL (7-17); Calcium 7.4 mg/dL (8.4-10.2); Carbon Dioxide 27 mmol/L (22-30); Chloride 103 mmol/L (98-107); Estimated CRCL calculation 74 ml/min; Estimated Glomerular Filt Rate > 60; Glucose 82 mg/dL (65-105); Magnesium 1.7 mg/dL (1.6-2.3); Potassium 3.6 mmol/L (3.4-5.0); Sodium 132 mmol/L (137-145)
[2019-10-24 07:36] LABS: CRP 17.9 mg/dL (<1.0)
[2019-10-24 08:35] LABS: Glucose Point of Care 91 (65-105)
[2019-10-24 08:38] LABS: Alanine Aminotransferase < 4 U/L (4-35)
[2019-10-24] MEDS: ALBUTEROL SULFATE (*SP) AEROSOL 1 PUFF 2 PUFF INHALATION ×4 (08:41→19:41)
[2019-10-24] MEDS: ZINC OXIDE 20% OINT 30 GM TUBE 1 APPLIC TOPICAL ×2 (08:52→20:15)
[2019-10-24] MEDS: MULTIVITAMINS THERAPEUTIC TAB (*BKC) 1 TABLET PO (08:53)
[2019-10-24] MEDS: QUEtiapine FUMARATE 100 MG TABLET 400 MG PO (08:53)
[2019-10-24] MEDS: RIVASTIGMINE TARTRATE 1.5 MG CAPSULE 3 MG PO ×2 (08:53→20:15)
[2019-10-24] MEDS: ATORVASTATIN 10 MG TABLET PO (08:53)
[2019-10-24] MEDS: ASPIRIN 81 MG ENTERIC TABLET PO (08:54)
[2019-10-24] MEDS: DULoxetine HCL 60 MG CAPSULE.DR PO (08:54)
[2019-10-24] MEDS: CARBIDOPA/LEVODOPA 25/250 MG TABLET 1 TABLET PO ×4 (08:54→20:14)
[2019-10-24] MEDS: DOCUSATE SODIUM 100 MG CAPSULE PO ×2 (08:54→17:40)
[2019-10-24] MEDS: MICONAZOLE NITRATE 2% CREAM 30 GM TUBE 1 APPLIC TOPICAL (08:54)
[2019-10-24] MEDS: POTASSIUM CHLORIDE 10 MEQ TABLET.ER 20 MEQ PO (08:55)
[2019-10-24] MEDS: PANTOPRAZOLE 40 MG TABLET PO (08:55)
[2019-10-24] MEDS: SENNA/DOCUSATE SODIUM TABLET 2 TAB PO ×2 (08:55→17:40)
[2019-10-24] MEDS: lamoTRIgine 100 MG TABLET PO ×2 (08:56→20:14)
[2019-10-24] MEDS: COLLAGENASE OINT 30 GM TUBE 1 APPLIC TOPICAL (08:56)
[2019-10-24] MEDS: ERTAPENEM 1 GM/NS 50 ML 1 GM/50 ML BAG IVPB (08:59)
[2019-10-24] MEDS: hydrOXYzine HCL 25 MG TABLET PO (08:59)
--- NOTE | 2019-10-24 10:19 | PM.IMPN ---
Progress Note: A&P Assessment and Plan (1) Sepsis: Qualifiers: Sepsis acute organ dysfunction status: without acute organ dysfunction Sepsis type: sepsis due to unspecified organism Qualified Code(s): A41.9 - Sepsis, unspecified organism Code(s): A41.9 - Sepsis, unspecified organism Status: Resolved Assessment and Plan: Patient initially in Septic Shock in ED with refractory severe hypotension despite aggressive IVF while in the ED, however now BP has improved to 110s sys. Met Sirs criteria with hypotension, tachypnea, and fever with UTI as suspected source. No leukocytosis on arrival, although WBC 11.2k the following day, now WNL. Lactic Acid normal. Continue to treat UTI with IV antibiotics; patient has had recurrent UTIs with multi drug resistant organisms in the past - treat with IV vanc and ertapenem based on past UCx D/c IVF Monitor closely Patient has advanced directive of DNR with comfort measures only in her physical chart (2) Recurrent urinary tract infection: Code(s): N39.0 - Urinary tract infection, site not specified Status: Acute Assessment and Plan: As above, patient has had multiple UTIs recently, most recently with UCx growing proteus mirabilis in 08/2019 and enterococcus species in 09/2019. Patient also has been seen by Urology last hospital stay with left ureteral stent placed for renal stone; [facility] states she has not follow up with Urology since. Hydronephrosis in the past as well. B/l Renal stones likely nidus to recurrent infections. Urology following and appreciate recommendations. UCx this stay is growing E. Coli; awaiting sensitivities As noted on previous note, per our Urology Service recommendations for possible transfer, I spoke with Dr. Grider, Urologist at [facility] on 10/22 and discussed the case in length. Per Dr. Grider, given her acute infection, he likely would not operate on her until the infection has improved/resolved if patient and family decide to proceed with operation, thus recommended treating the infection here with antibiotics. He stated he would get in contact with his facilities assistant to set up a time to discuss further options with the patient either via in-person office visit, or via virtual visit; this would include discussing possible PCNL sometime in the future. He recommended placing a Bradshaw catheter for help facilitate urine output, as well, which has been done. As above, continue with IV vanc and ertapenem based on previous urine cultures until current UCx results completely; tailor antibiotics to results of sensitivities Await further rec from Urology (3) Hematuria: Code(s): R31.9 - Hematuria, unspecified Status: Acute Assessment and Plan: Hematuria based on UA and patient states she has noticed some blood, but not a great historian. [facility] has not noted any blood recently. On technician terminal and repeater a/c for apparently DVT ppx due to decreased mobility. No blood noted in Bradshaw Hold Eliquis for now Urology consulted and appreciate recommendations Monitor H&H; this appears to be at her baseline (4) Parkinson's disease: Code(s): G20 - Parkinson's disease Status: Chronic Assessment and Plan: Continue home medications Patient bed bound and likely will not benefit PT/OT (5) Hypothyroidism: Qualifiers: Hypothyroidism type: unspecified Qualified Code(s): E03.9 - Hypothyroidism, unspecified Code(s): E03.9 - Hypothyroidism, unspecified Status: Acute Assessment and Plan: TSH WNL Continue home levothyroxine (6) Bipolar disorder: Code(s): F31.9 - Bipolar disorder, unspecified Status: Chronic Assessment and Plan: Continue home medications
[2019-10-24 12:56] LABS: Glucose Point of Care 85 (65-105)
[2019-10-24 15:45] LABS: Hematocrit 27.1 % (37.0-47.0); Hemoglobin 8.7 g/dL (12.0-15.0)
[2019-10-24 17:50] LABS: Glucose Point of Care 108 (65-105)
[2019-10-24] MEDS: MELATONIN 5 MG TABLET 10 MG PO (20:14)
[2019-10-24 20:33] LABS: Glucose Point of Care 108 (65-105)
[2019-10-25 06:00] VITALS: BP 130/68; PULSE 85; RESP 20; TEMP 36.5; O2SAT 95
[2019-10-25] MEDS: KETOROLAC 30 MG/ML VIAL (*BKC) IV PUSH (06:21)
[2019-10-25] MEDS: LEVOTHYROXINE SODIUM 75 MCG TABLET PO (06:29)
[2019-10-25 06:30] LABS: Basophils Percent Auto 0.7 % (0.2-1.2); Eosinophils Absolute Auto 0.2 K/mm3 (0-0.3); Eosinophils Percent Auto 3.6 % (0-4.4); Hematocrit 28.6 % (37.0-47.0); Hemoglobin 9.2 g/dL (12.0-15.0); Immature Granulocyte Absolute 0.02 K/mm3 (0.00-0.031); Immature Granulocyte Percent A 0.4 % (0-0.5); Lymphocytes Absolute Auto 1.82 K/mm3 (0.9-3.2); Lymphocytes Percent Auto 34.1 % (18.3-44.2); Mean Corpuscular HGB Conc 32.2 g/dl (32-36); Mean Corpuscular Hemoglobin 28.7 pg (26-34); Mean Corpuscular Volume 89.1 fl (80-100); Mean Platelet Volume 8.7 fl (7.4-10.4); Monocytes Absolute Auto 0.5 K/mm3 (0.1-0.6); Monocytes Percent Auto 9.4 % (2.6-8.5); Neutrophils Absolute Auto 2.8 K/mm3 (1.3-6.7); Neutrophils Percent Auto 51.8 % (45.5-73.1); Platelet Count Result 373 k/mm3 (150-375); Red Blood Count 3.21 M/mm3 (4.2-5.4); White Blood Count 5.3 K/mm3 (4.5-10.0)
[2019-10-25 07:18] LABS: Anion Gap 2 mmol/L (8-16); Blood Urea Nitrogen 13 mg/dL (7-17); CRP 12.8 mg/dL (<1.0); Calcium 7.9 mg/dL (8.4-10.2); Carbon Dioxide 27 mmol/L (22-30); Chloride 105 mmol/L (98-107); Estimated CRCL calculation 64 ml/min; Estimated Glomerular Filt Rate > 60; Glucose 86 mg/dL (65-105); Magnesium 1.8 mg/dL (1.6-2.3); Potassium 3.6 mmol/L (3.4-5.0); Sodium 134 mmol/L (137-145)
[2019-10-25] MEDS: ALBUTEROL SULFATE (*SP) AEROSOL 1 PUFF 2 PUFF INHALATION ×4 (07:59→20:23)
[2019-10-25 08:04] VITALS: O2SAT 96
[2019-10-25] MEDS: COLLAGENASE OINT 30 GM TUBE 1 APPLIC TOPICAL (08:23)
[2019-10-25] MEDS: ZINC OXIDE 20% OINT 30 GM TUBE 1 APPLIC TOPICAL ×2 (08:23→20:45)
[2019-10-25] MEDS: POTASSIUM CHLORIDE 10 MEQ TABLET.ER 20 MEQ PO (08:24)
[2019-10-25] MEDS: CARBIDOPA/LEVODOPA 25/250 MG TABLET 1 TABLET PO ×4 (08:24→20:43)
[2019-10-25] MEDS: ASPIRIN 81 MG ENTERIC TABLET PO (08:25)
[2019-10-25] MEDS: SENNA/DOCUSATE SODIUM TABLET 2 TAB PO (08:25)
[2019-10-25] MEDS: PANTOPRAZOLE 40 MG TABLET PO (08:25)
[2019-10-25] MEDS: RIVASTIGMINE TARTRATE 1.5 MG CAPSULE 3 MG PO ×2 (08:27→20:43)
[2019-10-25] MEDS: MULTIVITAMINS THERAPEUTIC TAB (*BKC) 1 TABLET PO (08:27)
[2019-10-25] MEDS: ATORVASTATIN 10 MG TABLET PO (08:27)
[2019-10-25] MEDS: DOCUSATE SODIUM 100 MG CAPSULE PO (08:27)
[2019-10-25] MEDS: lamoTRIgine 100 MG TABLET PO ×2 (08:28→20:43)
[2019-10-25] MEDS: DULoxetine HCL 60 MG CAPSULE.DR PO (08:28)
[2019-10-25] MEDS: hydrOXYzine HCL 25 MG TABLET PO (08:31)
[2019-10-25 09:45] LABS: Glucose Point of Care 90 (65-105)
[2019-10-25] MEDS: ERTAPENEM 1 GM/NS 50 ML 1 GM/50 ML BAG IVPB (10:36)
[2019-10-25 12:19] LABS: Glucose Point of Care 88 (65-105)
--- NOTE | 2019-10-25 13:44 | PM.IMPN ---
Progress Note: A&P Assessment and Plan (1) Sepsis: Qualifiers: Sepsis acute organ dysfunction status: without acute organ dysfunction Sepsis type: sepsis due to unspecified organism Qualified Code(s): A41.9 - Sepsis, unspecified organism Code(s): A41.9 - Sepsis, unspecified organism Status: Resolved Assessment and Plan: Patient initially in Septic Shock in ED with refractory severe hypotension despite aggressive IVF while in the ED, however now BP has improved to 110s sys. Met Sirs criteria with hypotension, tachypnea, and fever with UTI as suspected source. No leukocytosis on arrival, although WBC 11.2k the following day, now WNL. Lactic Acid normal. Continue to treat UTI with IV antibiotics; patient has had recurrent UTIs with multi drug resistant organisms in the past - treat with IV ertapenem based on UCx (E. coli ESBL) Monitor closely Patient has advanced directive of DNR with comfort measures only in her physical chart (2) Recurrent urinary tract infection: Code(s): N39.0 - Urinary tract infection, site not specified Status: Acute Assessment and Plan: As above, patient has had multiple UTIs recently, most recently with UCx growing proteus mirabilis in 08/2019 and enterococcus species in 09/2019. Patient also has been seen by Urology last hospital stay with left ureteral stent placed for renal stone; Nelida from [place] states she has not follow up with Urology since. Hydronephrosis in the past as well. B/l Renal stones likely nidus to recurrent infections. Urology following and appreciate recommendations. UCx this stay is growing E. Coli; awaiting sensitivities As noted on previous note, per our Urology Service recommendations for possible transfer, I spoke with Dr. Grider, Urologist at [facility] on 10/22 and discussed the case in length. Per Dr. Grider, given her acute infection, he likely would not operate on her until the infection has improved/resolved if patient and family decide to proceed with operation, thus recommended treating the infection here with antibiotics. He stated he would get in contact with his surgical dental assistant to set up a time to discuss further options with the patient either via in-person office visit, or via virtual visit; this would include discussing possible PCNL sometime in the future. He recommended placing a Bradshaw catheter for help facilitate urine output, as well, which has been done. As above, continue with IV ertapenem based on previous urine cultures until current UCx results completely Await further rec from Urology (3) Hematuria: Code(s): R31.9 - Hematuria, unspecified Status: Acute Assessment and Plan: Hematuria based on UA and patient states she has noticed some blood, but not a great historian. Nelida at [facility] has not noted any blood recently. On technician terminal and repeater a/c for apparently DVT ppx due to decreased mobility. No blood noted in Bradshaw, although brown in color Hold Eliquis for now Urology consulted and appreciate recommendations Monitor H&H; this appears to be at her baseline (4) Parkinson's disease: Code(s): G20 - Parkinson's disease Status: Chronic Assessment and Plan: Continue home medications (5) Hypothyroidism: Qualifiers: Hypothyroidism type: unspecified Qualified Code(s): E03.9 - Hypothyroidism, unspecified Code(s): E03.9 - Hypothyroidism, unspecified Status: Acute Assessment and Plan: TSH WNL Continue home levothyroxine (6) Bipolar disorder: Code(s): F31.9 - Bipolar disorder, unspecified Status: Chronic Assessment and Plan: Continue home medications (7) Type 2 diabetes mellitus: Code(s): E11.9 - Type 2 diabetes me
[2019-10-25 14:00] VITALS: BP 123/67; PULSE 84; RESP 16; TEMP 36.8; O2SAT 97
[2019-10-25 15:57] LABS: Vancomycin Trough 5.3 ug/mL (10.0-20.0)
[2019-10-25] MEDS: LORazepam 0.5 MG TABLET PO (16:05)
[2019-10-25 20:25] VITALS: O2SAT 94
[2019-10-25] MEDS: QUEtiapine FUMARATE 100 MG TABLET 400 MG PO (20:43)
[2019-10-25] MEDS: MELATONIN 5 MG TABLET 10 MG PO (20:43)
[2019-10-25 22:00] VITALS: BP 99/51; PULSE 82; RESP 20; TEMP 36.4; O2SAT 95
[2019-10-26] MEDS: MELATONIN 3 MG TABLET PO (04:05)
[2019-10-26] MEDS: LEVOTHYROXINE SODIUM 75 MCG TABLET PO (05:33)
[2019-10-26 06:00] VITALS: BP 150/76; PULSE 85; RESP 20; TEMP 36.6; O2SAT 96
[2019-10-26 06:54] LABS: Hematocrit 29.4 % (37.0-47.0); Hemoglobin 9.6 g/dL (12.0-15.0); Mean Corpuscular HGB Conc 32.7 g/dl (32-36); Mean Corpuscular Hemoglobin 29.2 pg (26-34); Mean Corpuscular Volume 89.4 fl (80-100); Mean Platelet Volume 8.9 fl (7.4-10.4); Platelet Count Result 443 k/mm3 (150-375); Red Blood Count 3.29 M/mm3 (4.2-5.4); Red Cell Distribution Width 17.2 % (11.5-14.5); White Blood Count 4.8 K/mm3 (4.5-10.0)
[2019-10-26 07:45] LABS: Anion Gap 4 mmol/L (8-16); Blood Urea Nitrogen 11 mg/dL (7-17); CRP 5.2 mg/dL (<1.0); Calcium 7.9 mg/dL (8.4-10.2); Carbon Dioxide 26 mmol/L (22-30); Chloride 104 mmol/L (98-107); Estimated CRCL calculation 74 ml/min; Estimated Glomerular Filt Rate > 60; Glucose 84 mg/dL (65-105); Magnesium 1.9 mg/dL (1.6-2.3); Potassium 3.8 mmol/L (3.4-5.0); Sodium 134 mmol/L (137-145)
[2019-10-26] MEDS: ALBUTEROL SULFATE (*SP) AEROSOL 1 PUFF 2 PUFF INHALATION ×2 (08:25→13:00)
[2019-10-26 08:27] VITALS: O2SAT 97
[2019-10-26 08:28] VITALS: PULSE 82; RESP 22
[2019-10-26] MEDS: COLLAGENASE OINT 30 GM TUBE 1 APPLIC TOPICAL (08:53)
[2019-10-26] MEDS: ZINC OXIDE 20% OINT 30 GM TUBE 1 APPLIC TOPICAL (08:53)
[2019-10-26] MEDS: MULTIVITAMINS THERAPEUTIC TAB (*BKC) 1 TABLET PO (08:54)
[2019-10-26] MEDS: SENNA/DOCUSATE SODIUM TABLET 2 TAB PO (08:54)
[2019-10-26] MEDS: RIVASTIGMINE TARTRATE 1.5 MG CAPSULE 3 MG PO (08:54)
[2019-10-26] MEDS: lamoTRIgine 100 MG TABLET PO (08:55)
[2019-10-26] MEDS: CARBIDOPA/LEVODOPA 25/250 MG TABLET 1 TABLET PO ×3 (08:55→17:33)
[2019-10-26] MEDS: POTASSIUM CHLORIDE 10 MEQ TABLET.ER 20 MEQ PO (08:55)
[2019-10-26] MEDS: DULoxetine HCL 60 MG CAPSULE.DR PO (08:55)
[2019-10-26] MEDS: ATORVASTATIN 10 MG TABLET PO (08:55)
[2019-10-26] MEDS: ASPIRIN 81 MG ENTERIC TABLET PO (08:55)
[2019-10-26] MEDS: PANTOPRAZOLE 40 MG TABLET PO (08:55)
[2019-10-26] MEDS: ERTAPENEM 1 GM/NS 50 ML 1 GM/50 ML BAG IVPB (09:02)
[2019-10-26] MEDS: FUROSEMIDE 20 MG TABLET PO (09:05)
[2019-10-26] MEDS: hydrOXYzine HCL 25 MG TABLET PO (09:07)
[2019-10-26] MEDS: LORazepam 0.5 MG TABLET PO ×2 (10:02→17:38)
--- NOTE | 2019-10-26 10:45 | PM.DS ---
DS: Admitting Diagnosis Admitting Diagnosis Admitting Diagnosis: Septic shock, UTI DS: Discharge Diagnosis Discharge Diagnosis (1) Sepsis: Qualifiers: Sepsis acute organ dysfunction status: without acute organ dysfunction Sepsis type: sepsis due to unspecified organism Qualified Code(s): A41.9 - Sepsis, unspecified organism Code(s): A41.9 - Sepsis, unspecified organism Status: Resolved Assessment and Plan: Patient initially in Septic Shock in ED with refractory severe hypotension despite aggressive IVF while in the ED, however now BP has improved to 110s sys. Met Sirs criteria with hypotension, tachypnea, and fever with UTI as suspected source. No leukocytosis on arrival, although WBC 11.2k the following day, now WNL. Lactic Acid normal. Continue to treat UTI with IV antibiotics today but will switch to oral Macrobid per Urology rec; patient has had recurrent UTIs with multi drug resistant organisms in the past. Please see below Likely discharge back to pending covid testing Patient has advanced directive of DNR with comfort measures only in her physical chart (2) Recurrent urinary tract infection: Code(s): N39.0 - Urinary tract infection, site not specified Status: Acute Assessment and Plan: As above, patient has had multiple UTIs recently, most recently with UCx growing proteus mirabilis in 08/2019 and enterococcus species in 09/2019. Patient also has been seen by Urology last hospital stay with left ureteral stent placed for renal stone; Nelida from [place] states she has not follow up with Urology since. Hydronephrosis in the past as well. B/l Renal stones likely nidus to recurrent infections. Urology following and appreciate recommendations. UCx this stay is growing E. Coli ESBL sensitive to ertapenem and macrobid. Discussed in length with ARCADIO Jones for Urology who recommended Macrobid Q12h for 10 days total of antibiotic treatment for this acute infection, then daily Macrobid indefinitely for chronic renal stones and recurrent infections. As noted on previous note, per our Urology Service recommendations for possible transfer, I spoke with Dr. Grider, Urologist at [facility] on 10/22 and discussed the case in length. Per Dr. Grider, given her acute infection, he likely would not operate on her until the infection has improved/resolved if patient and family decide to proceed with operation, thus recommended treating the infection here with antibiotics. He stated he would get in contact with his export sales assistant to set up a time to discuss further options with the patient either via in-person office visit, or via virtual visit; this would include discussing possible PCNL sometime in the future. He recommended placing a Bradshaw catheter for help facilitate urine output, as well, which has been done. Will stop Ertapenem today, and start Macrobid 100 mg Q12h PO to complete 10 days total (through 10/31), then Macrobid 100 mg daily thereafter, indefinitely until further eval from [facility] or the Urology service from here Attempted to contact [facility] multiple times today to set up an appointment, but was unable to reach a staff member to do so. Will send patient with information on Dr. Grider's office Follow up with Urology per their instructions Discharge today or tomorrow pending Covid results (3) Hematuria: Code(s): R31.9 - Hematuria, unspecified Status: Acute Assessment and Plan: Hematuria based on UA and patient states she has noticed some blood, but not a great historian. Nelida at [facility] has not noted any blood recently. On long term care administrator a/c for apparently DVT ppx due to decreased mobility. No blood noted in Bradshaw, appears clear today Will likely resume Eliquis at discharge Urology consulted and appreciate recommendations Monitor H&H; this appears to be at her baseline Follow up with [facility]
--- NOTE | 2019-10-26 11:17 | PCNFU ---
Nutrition Follow-Up Complete: Inadequate Oral Intake as related to dementia as evidenced by no reported po intake since admit. Goal: Adequate intake of at least 50% of meals/supplements Limited progress towards goal. We will continue current goal. Pt current nutrition is Soft and Bite Sized, Level 6/DBCC. Nutrition recommendation: Agree Last recorded weight is 75 kg. Bowel Motility:+BM reported 10/25 Labs Reviewed:Cr 0.6, Na 134,Hct 29.4,Hgb 9.6 Meds Noted: Sinemet,Protonix,Lasix,Lipitor. Additional Notes: Nutrition Follow up. Patient is comfort measures. Plans to discharge back to [place] today or tomorrow. Oral Intake has been fair to poor, 25-75% of meals. Patient is not drinking diet supplement, that has been discontinued. Wounds noted on Coccyx. PO intake encouraged. Monitoring: RD will monitor every 3 days.
[2019-10-26 12:10] LABS: SARS-CoV-2 RNA PCR Negative
[2019-10-26 14:00] VITALS: BP 152/53; PULSE 93; RESP 18; TEMP 36.9; O2SAT 98
== END 2019-10-26 19:30 | DRG 871 ==
LOC: ANHED 02:48 → ANH3MEDSUR 06:47
PROVIDERS: Admitting Provider Family Medicine; Emergency Provider Emergency Medicine; PCP Family Medicine; Visit Provider Physician Assistant
DX: A41.9 Sepsis, unspecified organism (principal); R65.21 Severe sepsis with septic shock; N39.0 Urinary tract infection, site not specified; N13.6 Pyonephrosis; N20.2 Calculus of kidney with calculus of ureter; I10 Essential (primary) hypertension; E03.9 Hypothyroidism, unspecified; F31.9 Bipolar disorder, unspecified; E11.9 Type 2 diabetes mellitus without complications; F41.9 Anxiety disorder, unspecified; F20.9 Schizophrenia, unspecified; G20 Parkinson's disease; B96.20 Unspecified Escherichia coli [E. coli] as the cause of diseases classified elsewhere; Z20.828 Contact with and (suspected) exposure to other viral communicable diseases
CPT/HCPCS: 36415; 36600; 51701; 70450; 71045; 76775; 80048; 80053; 80202; 81001; 82805; 83036; 83605; 83735; 84443; 85014; 85018; 85025; 85027; 85610; 85730; 86140; 87040; 87077; 87086; 87088; 87186; 87635; 93005; 94640; 96361; 96365; 99291; A9270; C9803; J0696; J1335; J1885; J3370; J7030; J7120; U0003

== ENCOUNTER 2019-12-08 17:39 | Inpatient (IN) | payer MEDICARE, MEDICAID, SELFPAY ==
[2019-12-08] VITALS (11 sets, daily range): BP systolic 103–158; BP diastolic 56–86; PULSE 92–105; RESP 16–37; TEMP 36.6–39; O2SAT 96–100; BMI 30.7
--- NOTE | ~2019-12-08 | CT_ITS ---
EXAMINATION: CT abdomen pelvis w con DATE: 12/08/2019 19:02 INDICATION: Sacral ulcer and fever. TECHNIQUE: Computed tomography (CT) of the abdomen and pelvis was performed with 100 mL Omnipaque-350 intravenous contrast. Automated exposure control and iterative reconstruction technique were employe d. The dose-length product was 1407.57 mGy-cm. COMPARISON: 09/21/2019 FINDINGS: Small calcified nodule at the lingula consistent with old granulomatous disease. Heart size is normal . Aortic valve and mitral annulus calcification. No pericardial or pleural effusion. Small sliding-ty pe hiatal hernia. Focal hepatic steatosis along the ligamentum teres. Cholecystectomy clips the gallb ladder fossa. Spleen and bilateral adrenal glands are normal. Fatty atrophy of the pancreas. Interval placement of a left internal ureteral stent with loops formed in an upper pole calyx of the left kid jill and in the bladder. Unchanged moderate left hydronephrosis. Multiple bilateral renal stones measu ring up to 1.2 cm at the right renal pelvis and 1.4 cm at the lower pole calyx of the left kidney. Th ere is urothelial thickening at the bilateral renal pelvises sees and calyces. There is also a Bradshaw catheter within the bladder which demonstrates mild wall thickening and mild surrounding inflammatory stranding which could be seen with cystitis. Uterus and bilateral adnexa are unremarkable. There is moderate colonic diverticulosis with a sigmoid predominance. There is no adjacent inflammatory lange e to suggest diverticulitis. No bowel obstruction. 9 cm ball of stool at the rectum. No free intraper itoneal gas or fluid. No pathologically enlarged abdominal or pelvic lymphadenopathy. Mild lumbar lev oscoliosis with moderate spondylosis. Sacrum and coccyx are unremarkable with no evident cortical ero jeovanny to suggest osteomyelitis. IMPRESSION: 1. Left internal ureteral stent in expected position with unchanged moderate left hydronephrosis. 2. Bilateral nonobstructing nephrolithiasis. 3. Mild bladder wall thickening with mild surrounding inflammatory stranding as well as urothelial th ickening at the bilateral renal calyces and pelves correlate with urinalysis to exclude cystitis and ascending urinary tract infection. 4. Diverticulosis. 5. Small sliding-type hiatal hernia. Reviewed, dictated and finalized at location A. IMPRESSION: 1. Left internal ureteral stent in expected position with unchanged moderate le ft hydronephrosis. 2. Bilateral nonobstructing nephrolithiasis. 3. Mild bladder wall thickening with mild surrounding inflammatory stranding as well as urothelial thickening at the bilateral renal calyces and pelves correl ate with urinalysis to exclude cystitis and ascending urinary tract infection. 4. Diverticulosis. 5. Small sliding-type hiatal hernia.
--- NOTE | ~2019-12-08 | XR_ITS ---
EXAMINATION: XR chest 1V portable DATE: 12/08/2019 18:13 INDICATION: Fever, weakness and hypertension TECHNIQUE: frontal view of the chest was obtained. COMPARISON: Chest radiograph dated 10/23/2019 FINDINGS: Chronic elevation the right hemidiaphragm. No focal airspace opacities, pleural effusion, pulmonary e tami or pneumothorax. The cardiomediastinal silhouette is normal. Moderate thoracic spondylosis. IMPRESSION: 1. Chronic elevation of the right hemidiaphragm. No acute cardiopulmonary disease. Reviewed, dictated and finalized at location A. IMPRESSION: 1. Chronic elevation of the right hemidiaphragm. No acute cardiopulmonary disea se.
--- NOTE | ~2019-12-08 | XR_ITS ---
XR chest 2V DATE: 12/10/2019 16:17 INDICATION: Fever, cough TECHNIQUE: AP and lateral views COMPARISON: 12/08/2019 portable AP chest FINDINGS: There is mild elevation of the right leaf of the diaphragm. No pulmonary infiltrate or cons olidation, pleural effusion or pulmonary vascular congestion or pneumothorax is detected. Heart size is likely within normal limits considering magnification associated with AP projection. Th ere is aortic calcification, ectasia and unfolding. Diffuse osteopenia. IMPRESSION: No active pulmonary disease Reviewed, dictated and finalized at location B. IMPRESSION: No active pulmonary disease
--- NOTE | ~2019-12-08 | CT_ITS ---
EXAMINATION: CT brain wo con DATE: 12/08/2019 19:02 INDICATION: Altered mental status TECHNIQUE: Computed tomography (CT) of the head was performed without intravenous contrast. Sagittal and coronal reconstructions were performed. The mA was adjusted according to patient size. Iterative reconstruction technique was employed. The dose-length product was 681.00 mGy-cm. COMPARISON: head CT dated 10/23/2019 FINDINGS: Unchanged small region of encephalomalacia in the right occipital lobe consistent with chronic infarc t. No acute intracranial hemorrhage, acute infarction or abnormal extra axial fluid collection. There is mild scattered white matter hypoattenuation consistent with chronic small vessel ischemic disease . Symmetric prominence of the sulci and subarachnoid spaces overlying the convexities consistent with mild age-appropriate diffuse cerebral volume loss. Ventricles are normal and symmetric. No mass/mass effect. The orbits, paranasal sinuses and mastoid air cells are normal. IMPRESSION: 1. No acute intracranial process. 2. Chronic right occipital lobe infarct. 3. Stable appearance of age-related changes including mild diffuse volume loss and mild scattered whi te matter hypoattenuation consistent with chronic small vessel ischemic disease. Reviewed, dictated and finalized at location A. IMPRESSION: 1. No acute intracranial process. 2. Chronic right occipital lobe infarct. 3. Stable appearance of age-related changes including mild diffuse volume loss and mild scattered white matter hypoattenuation consistent with chronic small v essel ischemic disease.
--- NOTE | 2019-12-08 17:39 | ECG_ITS ---
Measurements Intervals Cameron Rate: 103 P: WA: 0 QRS: -14 QRSD: 98 T: 9 QT: 265 QTc: 347 Interpretive Statements PROBABLY SINUS TACHYCARDIA (SIGNIFICANT BASELINE ARTIFACT) ATRIAL PREMATURE COMPLEXES POOR R WAVE PROGRESSION, ANTERIOR LEADS BORDERLINE ST-T WAVE ABNORMALITY- HIGH LATERAL LEADS BASELINE ARTIFACT- I, II, III, AVR, AVL, AVF, V1-V6 ABNORMAL ECG Electronically Signed On 12-08-2019 19:35:17 CDT by Juwan Marie D.O.
--- NOTE | 2019-12-08 17:52 | ED.GENADULT ---
HPI - General Adult General Chief complaint: Fever Stated complaint: unknown Time Seen by Provider: 12/08/19 18:03 Source: EMS History of Present Illness HPI narrative: Patient is a 69 y/o female sent from [place] for fever and blood in urine. Her symptoms started today. There is no known alleviating or exacerbating factor. Patient has history of Parkinson's. She is poor historian and unable to provide reliable history. Related Data Home Medications Medication Instructions Recorded Confirmed Vraylar 1.5 mg PO DAILY 03/10/19 10/23/19 acetaminophen 650 mg PO Q4H PRN 03/10/19 10/23/19 benzonatate 100 - 200 mg PO Q8H PRN 03/10/19 10/23/19 bisacodyl 10 mg FL DAILY PRN 03/10/19 10/23/19 docusate sodium [Colace] 100 mg PO BID 03/10/19 10/23/19 duloxetine 60 mg PO DAILY 03/10/19 10/23/19 gabapentin 100 mg PO TID 03/10/19 10/23/19 hydroxyzine HCl 25 mg PO DAILY 03/10/19 10/23/19 lamotrigine 100 mg PO BID 03/10/19 10/23/19 levothyroxine 75 mcg PO DAILY 03/10/19 10/23/19 melatonin 10 mg PO HS 03/10/19 10/23/19 nystatin [Nyamyc] 1 applic TOPICAL Q12H PRN 03/10/19 10/23/19 ondansetron HCl [Zofran] 4 mg PO Q6H PRN 03/10/19 10/23/19 potassium chloride 20 meq PO DAILY 03/10/19 10/23/19 quetiapine 400 mg PO HS 03/10/19 10/25/19 rivastigmine tartrate 3 mg PO BID 03/10/19 10/23/19 sennosides-docusate sodium 2 tab-cap PO BID 03/10/19 10/23/19 sodium chloride [Saline Nasal] 2 spray INTRANASAL TID PRN 03/10/19 10/23/19 Eliquis 2.5 mg PO BID 08/22/19 10/23/19 furosemide [Lasix] 20 mg PO DAILY 08/22/19 10/23/19 tramadol 50 mg PO TID PRN 08/22/19 10/23/19 Calcium 600 with Vitamin D3 1 tablet PO TID 09/21/19 10/23/19 Combivent Respimat 2 puff INHALATION QID 09/21/19 10/23/19 Orajel 3X Mouth Sores 1 ea MUCOUS MEMBRANE Q4H PRN 09/21/19 10/23/19 Santyl 1 applic TOPICAL DAILY 09/21/19 10/23/19 multivitamin 1 tablet PO DAILY 09/21/19 10/23/19 zinc oxide 1 applic TOPICAL Q12H 09/21/19 10/23/19 buspirone mg 12/08/19 galantamine mg PO 12/08/19 glucagon (human recombinant) 12/08/19 [Glucagon Emergency Kit (human)] lamotrigine 12/08/19 lorazepam [Ativan] 1 mg PO BID PRN 12/08/19 12/08/19 Allergies Allergy/AdvReac Type Severity Reaction Status Date / Time morphine Allergy Intermediate HALLUCINATI Verified 12/08/19 18:05 ONS Penicillins Allergy Unknown Unknown Verified 12/08/19 18:05 oxycodone [From Percocet] Allergy Unknown Verified 12/08/19 18:05 Review of Systems Review of Systems: ROS unobtainable: Yes unobtainable due to [facility] Social History Social History Social History: Ms. Coleman is a long-term resident at [facility]. She denies alcohol, tobacco, and drug use. She is completely dependent for all activities of daily living. Emergency contacts are Cal Coleman, son and Laverne Gardner, sister. She is listed as a do not resuscitate with comfort measures Smoking status: Unknown if ever smoked Alcohol intake: never Substance use: never Gender identity (if verbalized by the patient): Female Spiritual care concerns: No Agree to blood products: Yes Exam Const: General: well developed and ill appearing Orientation/consciousness: oriented to person and confusion HENMT: Head: normocephalic Ears: external ears normal General nose exam: Normal external nose present Eyes: General: appearance normal, both eyes and all related structures Conjunctivae: conjunctivae normal Neck: Neck: normal visual inspection and full ROM Chest: Chest palpation & inspection: normal inspection of the chest and no tenderness Resp: Effort & Inspection: normal respiratory effort Auscultation: clear to auscultation bilaterally Cardio: Rate: regular rate Rhythm: regular rhythm GI: GI Palp: No abdominal tenderness and Yes Soft to palpation Skin: General skin exam: normal color and turgor normal Neuro: General: oriented to person Cognition (Neuro): no
[2019-12-08 18:02] LABS: Basophils Absolute Auto 0.1 K/mm3 (0.0-0.1); Basophils Percent Auto 0.4 % (0.2-1.2); Eosinophils Percent Auto 0.1 % (0-4.4); Hematocrit 38.9 % (37.0-47.0); Hemoglobin 12.4 g/dL (12.0-15.0); Immature Granulocyte Percent A 0.6 % (0-0.5); Lymphocytes Absolute Auto 1.73 K/mm3 (0.9-3.2); Lymphocytes Percent Auto 10.4 % (18.3-44.2); Mean Corpuscular HGB Conc 31.9 g/dl (32-36); Mean Corpuscular Hemoglobin 28.6 pg (26-34); Mean Corpuscular Volume 89.6 fl (80-100); Mean Platelet Volume 9.1 fl (7.4-10.4); Monocytes Absolute Auto 0.8 K/mm3 (0.1-0.6); Monocytes Percent Auto 4.7 % (2.6-8.5); Neutrophils Absolute Auto 13.9 K/mm3 (1.3-6.7); Neutrophils Percent Auto 83.8 % (45.5-73.1); Platelet Count Result 623 k/mm3 (150-375); Red Blood Count 4.34 M/mm3 (4.2-5.4); Red Cell Distribution Width 14.8 % (11.5-14.5); White Blood Count 16.6 K/mm3 (4.5-10.0)
[2019-12-08 18:14] LABS: Lactic Acid Reflex 1.9 mmol/L (0.7-2.1)
[2019-12-08 18:16] LABS: Add Urine Microscopic? YES; Appearance Urine Cloudy (Clear); Bacteria Urine 2+ /hpf; Bilirubin Urine Negative (Negative); Blood Urine 3+ (Negative); Color Urine Red (Yellow); Glucose Urine UA Negative (Negative); Ketones Urine Negative (Negative); Leukocyte Esterase Ur 3+ LEU/UL (Negative); Nitrate Urine Negative (Negative); Protein Urine 2+ mg/dL (Negative); RBC Urine >75 /hpf (0-2); Specific Grav Ur 1.013 (1.001-1.035); Urobilinogen Urine Negative mg/dL (<2.0); WBC Clumps Urine Present /HPF; WBC Urine >75 /hpf
[2019-12-08 18:17] LABS: Alanine Aminotransferase 7 U/L (4-35); Albumin Level 3.7 g/dL (3.5-5.1); Alkaline Phosphatase 138 U/L (38-126); Anion Gap 8 mmol/L (8-16); Aspartate Amino Transferase 17 U/L (14-36); Bilirubin,Total 0.5 mg/dL (0.2-1.3); Blood Urea Nitrogen 25 mg/dL (7-17); Calcium 10.2 mg/dL (8.4-10.2); Carbon Dioxide 35 mmol/L (22-30); Chloride 94 mmol/L (98-107); Estimated Glomerular Filt Rate > 60; Glucose 109 mg/dL (65-105); Sodium 137 mmol/L (137-145)
[2019-12-08 18:20] LABS: INR 1.2; Prothrombin Time 15.1 Seconds (11.1-14.7)
[2019-12-08 18:25] LABS: Troponin I < 0.012 ng/mL (0.000-0.034)
--- NOTE | 2019-12-08 21:23 | PM.IMHP ---
H&P: HPI History of Present Illness Date/Time: 12/08/19 21:23 Chief complaint: sepsis, uti Narrative: This is a 69 year old female with history of hypertension, hypothyroidism, recurrent urinary tract infections requiring multiple hospitalizations who was just recently admitted to our hospitalist service last month when she was treated for a urinary tract infection, hematuria, and sepsis. tonight the patient presented to the emergency room from [facility] after being found to have blood in her urine and fever. The patient has had an indwelling urinary catheter since her last discharge and the patient cannot tell me the last time it was changed. During her most recent hospitalization her urine culture grew out an ESBL E coli. The patient is known to be chronically on Eliquis for DVT prophylaxis secondary to immobility. She was restarted on her Eliquis when she was discharged from the hospital. It appears that the patient has a left ureteral stent that has been in place since August or September of this year and our urology service has had us discuss the case in detail with [facility] urologist Dr. Grider who had agreed that he would operate on her once her acute infection had resolved. Tonight the patient herself complains of fever and suprapubic tenderness. She denies any chest pain, shortness of breath, cough, nausea, vomiting, or other symptoms. The patient has been started on Levaquin and vancomycin by ER provider. We been asked admitted to the hospital for further care. Review of Systems Review of Systems: All systems reviewed & are unremarkable except as noted in HPI and below PMFSH Past Medical History Medical History Acute UTI Anxiety Bilateral kidney stones Bilateral nephrolithiasis Bipolar disorder Cerebrovascular accident Previous right occipital lobe infarct. Chronic constipation Constipation Current use of termite helper anticoagulation Patient is not certain as to why she is on apixaban. Dehydration Dementia Diabetes Endometriosis Essential hypertension Gross hematuria Hyponatremia Hypothyroidism TSH on 08/22/2019 was 1.020. Metabolic encephalopathy Osteoarthritis Parkinson's disease With pseudobulbar affect. Recurrent urinary tract infection With history of multidrug resistant Proteus mirabilis. Recurrent urinary tract infection Schizophrenia Poorly documented in her medical history. Type 2 diabetes mellitus Poorly documented, and I see that she is on no medication for such. Hemoglobin A1c was 5.1% in September 2017. Ureterolithiasis Surgical History Surgical History History of bowel resection (~2001) 5-6 inches of bowel resected to include the appendix. History of carpal tunnel release Left. History of cholecystectomy History of dilation and curettage History of salpingo-oophorectomy History of total bilateral knee replacement Family History Family History Mother Diabetes mellitus Breast cancer Father Lung cancer Social History Social History Social History: Ms. Coleman is a long-term resident at [facility]. She denies alcohol, tobacco, and drug use. She is completely dependent for all activities of daily living. Emergency contacts are Cal Coleman, son and Laverne Gardner, sister. She is listed as a do not resuscitate with comfort measures Smoking status: Unknown if ever smoked Alcohol intake: unknown Substance use: unknown Gender identity (if verbalized by the patient): Female Spiritual care concerns: No Agree to blood products: Yes Meds Home Medications and Allergies Home Medications Medication Instructions Recorded Confirmed Type Vraylar 1.5 mg PO DAILY 03/10/19 12/08/19 History acetaminoph
--- NOTE | 2019-12-08 22:00 | ADMGEN ---
This patient, Kala Coleman, was admitted to Medical Room 345-. Patient/family oriented to hospital policies and general routines including ID bracelet, bed and alarms, visiting hours, pain management, procedures, bathroom and other care routines, personal items, smoking policy, room service/diet, and visiting hours. Valuables list has been completed. Information on how to activate the Rapid Response Team has been discussed. Patient/Family are encouraged to report perceived risks to care and to ask questions if they do not understand what they are told or what they should do.
[2019-12-08] MEDS: SODIUM CHLORIDE 0.9% IV 1,000 ML 125 ML IV CONT (22:10)
[2019-12-08 23:45] LABS: Glucose Point of Care 110 (65-105)
[2019-12-09] VITALS (11 sets, daily range): BP systolic 115–135; BP diastolic 60–85; PULSE 85–91; RESP 14–20; TEMP 36–37.4; O2SAT 95–100
[2019-12-09] MEDS: ERTAPENEM 1 GM/NS 50 ML 1 GM/50 ML BAG IVPB ×2 (00:54→20:21)
[2019-12-09] MEDS: LORazepam (*CRX) 1 MG TABLET PO (03:53)
[2019-12-09 05:13] LABS: Glucose Point of Care 97 (65-105)
[2019-12-09] MEDS: LEVOTHYROXINE SODIUM 75 MCG TABLET PO (05:49)
[2019-12-09 07:17] LABS: Basophils Percent Auto 0.3 % (0.2-1.2); Eosinophils Absolute Auto 0.1 K/mm3 (0-0.3); Eosinophils Percent Auto 0.7 % (0-4.4); Hematocrit 31.1 % (37.0-47.0); Hemoglobin 9.7 g/dL (12.0-15.0); Immature Granulocyte Absolute 0.08 K/mm3 (0.00-0.031); Immature Granulocyte Percent A 0.7 % (0-0.5); Lymphocytes Absolute Auto 1.52 K/mm3 (0.9-3.2); Lymphocytes Percent Auto 13.5 % (18.3-44.2); Mean Corpuscular HGB Conc 31.2 g/dl (32-36); Mean Corpuscular Hemoglobin 27.9 pg (26-34); Mean Corpuscular Volume 89.4 fl (80-100); Mean Platelet Volume 9.3 fl (7.4-10.4); Monocytes Absolute Auto 0.9 K/mm3 (0.1-0.6); Monocytes Percent Auto 8.3 % (2.6-8.5); Neutrophils Absolute Auto 8.6 K/mm3 (1.3-6.7); Neutrophils Percent Auto 76.5 % (45.5-73.1); Platelet Count Result 433 k/mm3 (150-375); Red Blood Count 3.48 M/mm3 (4.2-5.4); Red Cell Distribution Width 14.9 % (11.5-14.5); White Blood Count 11.2 K/mm3 (4.5-10.0)
[2019-12-09 07:23] LABS: Anion Gap 2 mmol/L (8-16); Blood Urea Nitrogen 19 mg/dL (7-17); Calcium 9.1 mg/dL (8.4-10.2); Carbon Dioxide 33 mmol/L (22-30); Chloride 100 mmol/L (98-107); Estimated CRCL calculation 71 ml/min; Estimated Glomerular Filt Rate > 60; Glucose 95 mg/dL (65-105); Magnesium 1.7 mg/dL (1.6-2.3); Sodium 135 mmol/L (137-145)
[2019-12-09] MEDS: SODIUM CHLORIDE 0.9% IV 1,000 ML 125 ML IV CONT ×2 (08:12→17:18)
[2019-12-09] MEDS: lamoTRIgine 100 MG TABLET PO ×2 (10:40→17:20)
[2019-12-09] MEDS: DOCUSATE SODIUM 100 MG CAPSULE PO ×2 (10:40→17:20)
[2019-12-09] MEDS: busPIRone HCL 5 MG TABLET PO ×2 (10:40→17:20)
[2019-12-09] MEDS: busPIRone HCL 2.5 MG TABLET PO ×2 (10:40→17:20)
[2019-12-09] MEDS: GABAPENTIN 100 MG CAPSULE PO ×3 (10:40→17:20)
[2019-12-09] MEDS: FUROSEMIDE 20 MG TABLET PO ×2 (10:41→17:20)
[2019-12-09] MEDS: PANTOPRAZOLE SOD SESQUIHYDRATE 20 MG TAB PO (10:41)
[2019-12-09] MEDS: DULoxetine HCL 60 MG CAPSULE.DR PO (10:41)
[2019-12-09] MEDS: CARBIDOPA/LEVODOPA 25/100 MG TABLET 1 TABLET PO ×4 (10:41→20:21)
--- NOTE | 2019-12-09 12:18 | WPDURCON ---
Assessment and Plan Assessment and plan (1) Sepsis: Qualifiers: Sepsis acute organ dysfunction status: unspecified Sepsis type: sepsis due to unspecified organism Qualified Code(s): A41.9 - Sepsis, unspecified organism Code(s): A41.9 - Sepsis, unspecified organism Status: Acute (2) Pyelonephritis: Code(s): N12 - Tubulo-interstitial nephritis, not specified as acute or chronic Status: Acute Assessment and Plan: Continue IV antibiotics and tailor to culture results. (3) Hematuria: Qualifiers: Hematuria type: gross Qualified Code(s): R31.0 - Gross hematuria Code(s): R31.9 - Hematuria, unspecified Status: Acute Assessment and Plan: Will likely resolve with treatment, rubio is draining well to gravity. (4) Bilateral kidney stones: Code(s): N20.0 - Calculus of kidney Status: Acute Assessment and Plan: Patient should be transferred to [facility] and/or seen there for these stones as a consultation for PCNL to the left side. We do not do PCNL here. IT has been recommended before and unfortunately the [facility] is not following up, therefore she continues to have recurrent UTI's. She should have her rubio changed monthly as well, it is unclear when it was placed most recently. No further evaluation needed at this time. Urology Consult Note HPI Date Seen: 12/09/19 Requesting Physician: Destinee Lopez PA-C Primary Care Provider: Concepción Hinton MD Consult Narrative Narrative: Kala Coleman is a 69 year old female who presented to the ED with fever and blood in her urine from the [facility]. She is non verbal. She has been seen several times in the past three months by our practice while hospitalized. She has a WBC of 11.2, creatinine of 0.70. SHe underwent a stent placement in the left ureter on 09/22/[address] Oropeza. She has had three positive urine cultures since August 2019, the first was on 08/22/2019 which grew Proteus, the second on 09/21/2019 which grew Enterococcus and the third most recently was on 10/23/2019 growing E-Coli. IT was noted that on her CT scan from 12/08/2019 she has a left stent in place which appears to be draining as there is no change in hydronephrosis, bilateral non obstructive stones and mild bladder wall thickening. It has been suggested in the past to either transfer her to [facility] or follow up at [facility] in Urology to address her stone via PCNL. She is not a candidate for PCNL here as we do not perform that procedure here at [facility] and would benefit from going to [facility] since she has multiple co-morbidities. Review of Systems Review of Systems: ROS unobtainable: Yes unobtainable due to mental status PMFSH Past Medical History Medical History Acute UTI Anxiety Bilateral kidney stones Bilateral nephrolithiasis Bipolar disorder Cerebrovascular accident Previous right occipital lobe infarct. Chronic constipation Constipation Current use of exterminator helper termite anticoagulation Patient is not certain as to why she is on apixaban. Dehydration Dementia Diabetes Endometriosis Essential hypertension Gross hematuria Hyponatremia Hypothyroidism TSH on 08/22/2019 was 1.020. Metabolic encephalopathy Osteoarthritis Parkinson's disease With pseudobulbar affect. Recurrent urinary tract infection With history of multidrug resistant Proteus mirabilis. Recurrent urinary tract infection Schizophrenia Poorly documented in her medical history. Type 2 diabetes mellitus Poorly documented, and I see that she is on no medication for such. Hemoglobin A1c was 5.1% in September 2017. Ureterolithiasis Surgical History Surgical History History of bowel resection (~2001) 5-6 inches of bowel resected to include the appendix. History of carpal tunnel release Left. History of cholecystectomy History of dilation and curet
[2019-12-09 12:28] LABS: Glucose Point of Care 101 (65-105)
--- NOTE | 2019-12-09 16:36 | PM.IMPN ---
Progress Note: A&P Assessment and Plan (1) Sepsis: Qualifiers: Sepsis acute organ dysfunction status: unspecified Sepsis type: sepsis due to unspecified organism Qualified Code(s): A41.9 - Sepsis, unspecified organism Code(s): A41.9 - Sepsis, unspecified organism Status: Acute Assessment and Plan: With fever and leukocytosis. Lactic acid is within normal limits. Vital signs are stable today after IV antibiotics were started. Leukocytosis improving. Urine and blood cultures pending. Monitor vital signs and urine output. Continue IV antibiotics for catheter associated UTI. (2) UTI (urinary tract infection) due to urinary indwelling catheter: Qualifiers: Encounter type: initial encounter Indwelling urinary catheter type: unspecified Qualified Code(s): T83.511A - Infection and inflammatory reaction due to indwelling urethral catheter, initial encounter; N39.0 - Urinary tract infection, site not specified Code(s): T83.511A - Infection and inflammatory reaction due to indwelling urethral catheter, initial encounter; N39.0 - Urinary tract infection, site not specified Status: Acute Assessment and Plan: History of frequent UTIs with last admission about 1 month ago results showing ESBL E coli. The patient was started on IV ertapenem because that was sensitive last time to the ESBL. Urine culture is pending. They change out her urinary catheter. Urology was consulted due to history of recurrent UTIs, decreased urine output and hematuria. Urology evaluated the patient and states that she is going to continue having recurrent UTIs if she does not have the underlying problem taking care of. They state that she has been referred to [place] or another critical access hospital facility for consultation for possible PCNL procedure. The urologist's here do not do that extensive of the surgery and she needs to be seen elsewhere or she is going to continue having recurring infections. At this time the patient appears to be stable and we are pending her urinalysis sensitivity results at this time. Think she is stable to remain in our facility and we can discharge her once we know the correct antibiotics for her UTI. Make sure that they have her follow-up with a specialist at tertiary care facility for further evaluation. Continue monitoring urine culture results. Change antibiotics if necessary. (3) Hematuria: Qualifiers: Hematuria type: gross Qualified Code(s): R31.0 - Gross hematuria Code(s): R31.9 - Hematuria, unspecified Status: Acute Assessment and Plan: Likely secondary to anticoagulation use and indwelling Bradshaw catheter. H&H appears to be stable from prior hospitalizations with the range of 9-10. Bradshaw does show slight hematuria but appears to be improving. Will see what urology recommends at this time about restarting anticoagulation. Monitor blood counts, transfuse p.r.n.. Will hold Eliquis therapy. Appreciate urology input. (4) Hydronephrosis: Qualifiers: Hydronephrosis type: other Qualified Code(s): N13.39 - Other hydronephrosis Code(s): N13.30 - Unspecified hydronephrosis Status: Chronic Assessment and Plan: Continue Urology recommendations for same. Patient still has a left ureteral stent in place. (5) Diabetes: Qualifiers: Diabetes mellitus type: type 2 Diabetes mellitus integrated logistics programs director insulin use: without integrated logistics programs director use Diabetes mellitus complication status: without complication Qualified Code(s): E11.9 - Type 2 diabetes mellitus without complications Code(s): E11.9 - Type 2 diabetes mellitus without complications Status: Chronic Assessment and Plan: Glucoses stable and well controlled at
[2019-12-09 16:55] LABS: Glucose Point of Care 89 (65-105)
[2019-12-09 23:37] LABS: Glucose Point of Care 84 (65-105)
[2019-12-10] VITALS (14 sets, daily range): BP systolic 120–136; BP diastolic 65–81; PULSE 68–92; RESP 12–16; TEMP 36.6–37.8; O2SAT 94–100
[2019-12-10] MEDS: SODIUM CHLORIDE 0.9% IV 1,000 ML 125 ML IV CONT (01:11)
[2019-12-10] MEDS: LEVOTHYROXINE SODIUM 75 MCG TABLET PO (05:39)
[2019-12-10 06:22] LABS: Basophils Percent Auto 0.5 % (0.2-1.2); Eosinophils Absolute Auto 0.2 K/mm3 (0-0.3); Eosinophils Percent Auto 2.8 % (0-4.4); Immature Granulocyte Absolute 0.05 K/mm3 (0.00-0.031); Immature Granulocyte Percent A 0.6 % (0-0.5); Lymphocytes Absolute Auto 2.12 K/mm3 (0.9-3.2); Lymphocytes Percent Auto 25.9 % (18.3-44.2); Mean Corpuscular HGB Conc 31.3 g/dl (32-36); Mean Corpuscular Hemoglobin 27.9 pg (26-34); Mean Corpuscular Volume 89.1 fl (80-100); Mean Platelet Volume 8.9 fl (7.4-10.4); Monocytes Absolute Auto 0.6 K/mm3 (0.1-0.6); Neutrophils Absolute Auto 5.2 K/mm3 (1.3-6.7); Neutrophils Percent Auto 63.2 % (45.5-73.1); Platelet Count Result 445 k/mm3 (150-375); Red Blood Count 3.59 M/mm3 (4.2-5.4); Red Cell Distribution Width 14.8 % (11.5-14.5); White Blood Count 8.2 K/mm3 (4.5-10.0)
[2019-12-10 06:41] LABS: Anion Gap 7 mmol/L (8-16); Blood Urea Nitrogen 11 mg/dL (7-17); Calcium 8.7 mg/dL (8.4-10.2); Carbon Dioxide 27 mmol/L (22-30); Chloride 101 mmol/L (98-107); Estimated CRCL calculation 82 ml/min; Estimated Glomerular Filt Rate > 60; Glucose 85 mg/dL (65-105); Potassium 3.4 mmol/L (3.4-5.0); Sodium 135 mmol/L (137-145)
[2019-12-10 06:48] LABS: CRP 15.4 mg/dL (<1.0)
[2019-12-10 07:39] LABS: Glucose Point of Care 86 (65-105)
[2019-12-10 08:43] LABS: Magnesium 1.7 mg/dL (1.6-2.3)
[2019-12-10] MEDS: PANTOPRAZOLE SOD SESQUIHYDRATE 20 MG TAB PO (08:45)
[2019-12-10] MEDS: lamoTRIgine 100 MG TABLET PO ×2 (08:46→17:00)
[2019-12-10] MEDS: DULoxetine HCL 60 MG CAPSULE.DR PO (08:46)
[2019-12-10] MEDS: FUROSEMIDE 20 MG TABLET PO ×2 (08:46→16:59)
[2019-12-10] MEDS: GABAPENTIN 100 MG CAPSULE PO ×3 (08:46→16:59)
[2019-12-10] MEDS: APIXABAN 2.5 MG TABLET PO ×2 (08:46→20:24)
[2019-12-10] MEDS: busPIRone HCL 2.5 MG TABLET PO ×2 (08:46→16:59)
[2019-12-10] MEDS: CARBIDOPA/LEVODOPA 25/100 MG TABLET 1 TABLET PO ×4 (08:47→20:23)
[2019-12-10] MEDS: busPIRone HCL 5 MG TABLET PO ×2 (08:47→17:00)
[2019-12-10] MEDS: DOCUSATE SODIUM 100 MG CAPSULE PO ×2 (08:47→16:59)
[2019-12-10] MEDS: LORazepam (*CRX) 1 MG TABLET PO ×2 (10:40→20:23)
[2019-12-10 12:02] LABS: Glucose Point of Care 83 (65-105)
--- NOTE | 2019-12-10 13:16 | PCSTNOTE ---
Please refer to the Bedside Swallow Evaluation in the EMR. Please note, silent aspiration cannot be ruled out at bedside.
--- NOTE | 2019-12-10 13:33 | PM.IMPN ---
Progress Note: A&P Assessment and Plan (1) Sepsis: Qualifiers: Sepsis acute organ dysfunction status: unspecified Sepsis type: sepsis due to unspecified organism Qualified Code(s): A41.9 - Sepsis, unspecified organism Code(s): A41.9 - Sepsis, unspecified organism Status: Acute Assessment and Plan: With fever and leukocytosis. Lactic acid is within normal limits. Vital signs are stable today after IV antibiotics were started. Leukocytosis normalized. Urine culture shows Klebsiella pneumoniae with sensitivities to ceftriaxone IV or cefdinir p.o.. Blood cultures are still negative to date. Monitor vital signs and urine output. Continue IV antibiotics for catheter associated UTI. (2) UTI (urinary tract infection) due to urinary indwelling catheter: Qualifiers: Encounter type: initial encounter Indwelling urinary catheter type: unspecified Qualified Code(s): T83.511A - Infection and inflammatory reaction due to indwelling urethral catheter, initial encounter; N39.0 - Urinary tract infection, site not specified Code(s): T83.511A - Infection and inflammatory reaction due to indwelling urethral catheter, initial encounter; N39.0 - Urinary tract infection, site not specified Status: Acute Assessment and Plan: History of frequent UTIs with last admission about 1 month ago results showing ESBL E coli. The patient was started on IV ertapenem because that was sensitive last time to the ESBL. Urine culture shows Klebsiella pneumoniae with sensitivities to ceftriaxone her cefdinir p.o.. Urology evaluated the patient and states that she is going to continue having recurrent UTIs if she does not have the underlying problem taking care of. They state that she has been referred to [place] or another tertiary care facility for consultation for possible PCNL procedure. The urologist's here do not do that extensive of the surgery and she needs to be seen elsewhere or she is going to continue having recurring infections. I talked to the patient's son, Cal she was the power of furnace combustion tester, he states he was given a referral to [facility] to [facility] who would perform her surgery but wanted to wait until her acute infection had resolved. After her last infection resolved the patient did not want to have surgery. I explained to him that she is now back to the hospital again with another UTI and urology again recommend her following up with [facility] and having this surgery to prevent recurrent infections. He states he has [facility]'s number and will make an appointment after she is discharged to have them follow-up and discuss further treatment options and possible surgery in the future. At this time, the patient appears to be stable and we are treating her UTI correctly. She is stable for discharge will be have to get a COVID test prior to returning [facility] to the [facility] which we will get today. We will have the results tomorrow and hopefully she continues to be stable and can be discharged at that time. Continue monitoring urine culture results. Change antibiotics if necessary. (3) Hematuria: Qualifiers: Hematuria type: gross Qualified Code(s): R31.0 - Gross hematuria Code(s): R31.9 - Hematuria, unspecified Status: Acute Assessment and Plan: Likely secondary to anticoagulation use and indwelling Bradshaw catheter. H&H appears to be stable from prior hospitalizations with the range of 9-10. Bradshaw does show slight hematuria but appears to be improving. Urology believes the patient can be restarted on her Eliquis at this time, I will continue the medication and monitor H&H and hematuria. Monitor blood counts, transfuse p.r.n.. Appreciate urology input. (4) Hydronephrosis: Qualifiers: Hydronephrosis type
--- NOTE | 2019-12-10 14:08 | PC.NURSE ---
On 12/10/19, the student, [ Iva Muhammad], provided care and completed [facility] documentation on this patient. I have reviewed the student's documentation and agree with the findings.
[2019-12-10] MEDS: ACETAMINOPHEN 325 MG TABLET 650 MG PO (15:31)
[2019-12-10 17:13] LABS: Glucose Point of Care 76 (65-105)
[2019-12-10 23:52] LABS: Glucose Point of Care 84 (65-105)
[2019-12-11] VITALS: PULSE 84
[2019-12-11] MEDS: ACETAMINOPHEN 325 MG TABLET 650 MG PO ×3 (00:58→16:27)
[2019-12-11 04:00] VITALS: PULSE 86
[2019-12-11 05:35] LABS: Glucose Point of Care 88 (65-105)
[2019-12-11 05:49] VITALS: BP 136/75; PULSE 90; RESP 14; TEMP 36.3; O2SAT 97
[2019-12-11] MEDS: LEVOTHYROXINE SODIUM 75 MCG TABLET PO (05:49)
[2019-12-11 06:42] LABS: Hematocrit 33.2 % (37.0-47.0); Hemoglobin 10.6 g/dL (12.0-15.0); Mean Corpuscular HGB Conc 31.9 g/dl (32-36); Mean Corpuscular Hemoglobin 28.3 pg (26-34); Mean Corpuscular Volume 88.8 fl (80-100); Mean Platelet Volume 8.9 fl (7.4-10.4); Platelet Count Result 457 k/mm3 (150-375); Red Blood Count 3.74 M/mm3 (4.2-5.4); Red Cell Distribution Width 14.6 % (11.5-14.5); White Blood Count 6.7 K/mm3 (4.5-10.0)
[2019-12-11 06:49] LABS: Anion Gap 10 mmol/L (8-16); Blood Urea Nitrogen 8 mg/dL (7-17); Calcium 8.7 mg/dL (8.4-10.2); Carbon Dioxide 26 mmol/L (22-30); Chloride 98 mmol/L (98-107); Estimated CRCL calculation 82 ml/min; Estimated Glomerular Filt Rate > 60; Glucose 90 mg/dL (65-105); Magnesium 1.8 mg/dL (1.6-2.3); Potassium 3.2 mmol/L (3.4-5.0); Sodium 134 mmol/L (137-145)
[2019-12-11 08:15] VITALS: PULSE 93
[2019-12-11] MEDS: APIXABAN 2.5 MG TABLET PO (08:18)
[2019-12-11] MEDS: GABAPENTIN 100 MG CAPSULE PO ×3 (08:18→16:28)
[2019-12-11] MEDS: busPIRone HCL 2.5 MG TABLET PO ×2 (08:18→16:28)
[2019-12-11] MEDS: CARBIDOPA/LEVODOPA 25/100 MG TABLET 1 TABLET PO ×3 (08:19→16:28)
[2019-12-11] MEDS: DULoxetine HCL 60 MG CAPSULE.DR PO (08:19)
[2019-12-11] MEDS: lamoTRIgine 100 MG TABLET PO ×2 (08:19→16:29)
[2019-12-11] MEDS: LORazepam (*CRX) 1 MG TABLET PO (08:19)
[2019-12-11] MEDS: FUROSEMIDE 20 MG TABLET PO ×2 (08:19→16:28)
[2019-12-11] MEDS: busPIRone HCL 5 MG TABLET PO ×2 (08:19→16:28)
[2019-12-11] MEDS: DOCUSATE SODIUM 100 MG CAPSULE PO ×2 (08:19→16:28)
[2019-12-11] MEDS: PANTOPRAZOLE SOD SESQUIHYDRATE 20 MG TAB PO (08:19)
[2019-12-11] MEDS: POTASSIUM CHLORIDE 20 MEQ TABLET 40 MEQ PO (08:21)
[2019-12-11 11:43] LABS: Glucose Point of Care 91 (65-105)
[2019-12-11 12:00] VITALS: PULSE 95
[2019-12-11 12:19] LABS: SARS-CoV-2 RNA PCR Negative
--- NOTE | 2019-12-11 12:41 | PM.DS ---
DS: Admitting Diagnosis Admitting Diagnosis Admitting Diagnosis: sepsis, uti DS: Discharge Diagnosis Discharge Diagnosis (1) Sepsis: Qualifiers: Sepsis acute organ dysfunction status: unspecified Sepsis type: sepsis due to unspecified organism Qualified Code(s): A41.9 - Sepsis, unspecified organism Code(s): A41.9 - Sepsis, unspecified organism Status: Acute Assessment and Plan: With fever and leukocytosis. Lactic acid is within normal limits. Vital signs are stable today after IV antibiotics were started. Leukocytosis normalized. Urine culture shows Klebsiella pneumoniae with sensitivities to ceftriaxone IV or cefdinir p.o.. Blood cultures are still negative to date. Plan is for her to be discharged back to her nursing facility and continue oral antibiotics and probiotics. (2) UTI (urinary tract infection) due to urinary indwelling catheter: Qualifiers: Encounter type: initial encounter Indwelling urinary catheter type: unspecified Qualified Code(s): T83.511A - Infection and inflammatory reaction due to indwelling urethral catheter, initial encounter; N39.0 - Urinary tract infection, site not specified Code(s): T83.511A - Infection and inflammatory reaction due to indwelling urethral catheter, initial encounter; N39.0 - Urinary tract infection, site not specified Status: Acute Assessment and Plan: History of frequent UTIs with last admission about 1 month ago results showing ESBL E coli. The patient was started on IV ertapenem because that was sensitive last time to the ESBL. Urine culture shows Klebsiella pneumoniae with sensitivities to ceftriaxone her cefdinir p.o.. Urology evaluated the patient and states that she is going to continue having recurrent UTIs if she does not have the underlying problem taking care of. They state that she has been referred to [facility] or another tertiary care facility for consultation for possible PCNL procedure. The urologist's here do not do that extensive of the surgery and she needs to be seen elsewhere or she is going to continue having recurring infections. I talked to the patient's son, Cal she was the power of sports attorney, he states he was given a referral to [facility] to [facility] who would perform her surgery but wanted to wait until her acute infection had resolved. After her last infection resolved the patient did not want to have surgery. I explained to him that she is now back to the hospital again with another UTI and urology again recommend her following up with [facility] and having this surgery to prevent recurrent infections. He states he has [facility]'s number and will make an appointment after she is discharged to have them follow-up and discuss further treatment options and possible surgery in the future. At this time, the patient appears to be stable She is stable for discharge at this time and had a negative COVID test. Continue oral antibiotics for UTI in follow-up with urology specialist at [facility]. (3) Hematuria: Qualifiers: Hematuria type: gross Qualified Code(s): R31.0 - Gross hematuria Code(s): R31.9 - Hematuria, unspecified Status: Acute Assessment and Plan: Likely secondary to anticoagulation use and indwelling Bradshaw catheter. H&H appears to be stable from prior hospitalizations with the range of 9-10. Bradshaw does show slight hematuria but appears to be improving. Urology believes the patient can be restarted on her Eliquis at this time, I will continue the medication and monitor H&H and hematuria. H&H during stable. She still has some hematuria to her Bradshaw bag. Will check another CBC next week and have her follow-up with primary care provider. (4) Hydronephrosis: Qualifiers: Hydronephrosis type: other
[2019-12-11 13:16] VITALS: BP 136/73; PULSE 93; RESP 20; TEMP 36.9; O2SAT 98
--- NOTE | 2019-12-11 14:26 | PCSTNOTE ---
This patient was seen for an initial Speech Therapy evaluation for swallowing yesterday and exhibited good swallowing skills however she refused soft/solid foods for the speech pathologist. She requested a follow-up visit to ensure that patient is tolerating her current diet of Soft and Bite-Sized and regular liquids. This speech pathologist consulted with nurse, Nancy, and FUR BLOWER OPERATOR, Eliseo, who both report she is tolerating the diet with occasional cough but patient told FUR BLOWER OPERATOR she does not feel any food/liquid is entering her airway. Patient is being discharged from this facility shortly on current diet with minimal to no concerns with swallowing.
--- NOTE | 2019-12-11 19:46 | PC.NURSE ---
MELINDA Presley from [facility] called r/t discharge prescription Cefdinir. Clarification requested with prescriber intent since patient has a penicillin allergy. RN called [facility] pharmacist to confirm classification of ceftriaxone, which the patient received IV during hospitalization, and prescription for cefdinir. Hospitalist Yris Pedraza also spoke to confirmation of proper prescribing at time of discharge. RN returned call to [facility] to update appropriately.
--- NOTE | 2019-12-15 15:18 | PC.NURSE ---
Blood cx show no growth
== END 2019-12-11 17:30 | DRG 698 ==
LOC: ANHED 20:53 → ANH3MED 21:17
PROVIDERS: Internal Medicine; Admitting Provider Family Medicine; Emergency Provider Emergency Medicine; PCP Family Medicine; Visit Provider Physician Assistant
DX: T83.511A Infection and inflammatory reaction due to indwelling urethral catheter, initial encounter (principal); A41.9 Sepsis, unspecified organism; I69.354 Hemiplegia and hemiparesis following cerebral infarction affecting left non-dominant side; N13.2 Hydronephrosis with renal and ureteral calculous obstruction; N39.0 Urinary tract infection, site not specified; B96.1 Klebsiella pneumoniae [K. pneumoniae] as the cause of diseases classified elsewhere; Z20.828 Contact with and (suspected) exposure to other viral communicable diseases; R31.0 Gross hematuria; T45.515A Adverse effect of anticoagulants, initial encounter; G20 Parkinson's disease; I10 Essential (primary) hypertension; E03.9 Hypothyroidism, unspecified; F31.9 Bipolar disorder, unspecified; M19.90 Unspecified osteoarthritis, unspecified site; E11.9 Type 2 diabetes mellitus without complications; R05 Cough; Z96.653 Presence of artificial knee joint, bilateral; Z66 Do not resuscitate; Z79.01 Long term (current) use of anticoagulants; Z90.49 Acquired absence of other specified parts of digestive tract; Z90.722 Acquired absence of ovaries, bilateral
CPT/HCPCS: 36415; 51702; 70450; 71045; 71046; 74177; 80048; 80053; 81001; 83605; 83735; 84484; 85025; 85027; 85610; 85730; 86140; 87040; 87077; 87086; 87088; 87186; 87635; 92610; 93005; 96365; 96367; 99285; A9270; C9803; J0131; J0696; J1335; J1956; J3370; J7030; J7120; Q9967; U0003